=== PATIENT | female | born 1985 ===

== ENCOUNTER 2020-04-13 12:19 | Outpatient (REF) | payer MEDICAID, SELFPAY ==
--- NOTE | 2020-04-13 12:30 | XR_ITS ---
EXAMINATION: XR LUMBOSACRAL SPINE CLINICAL INFORMATION: Lower back pain with sciatica over one year. COMPARISON: May 24, 2018 TECHNIQUE: Three views of the lumbosacral spine. FINDINGS: There are 5 nonrib bearing lumbar vertebra. The bony texture and alignment is satisfactory. Disc spaces are maintained. No acute fracture, spondylolisthesis, or spondylolysis identified. Sacroiliac joints unremarkable. XR/XR lumbar spine 2-3V IMPRESSION: No significant lumbar spine bony abnormality appreciated.
== END 2020-04-13 12:20 | disposition home or self-care (01) ==
LOC: HO.XRAY 12:19
PROVIDERS: PCP Family Medicine; Visit Provider Nurse Practitioner Family
DX: M54.41 Lumbago with sciatica, right side (principal); M54.42 Lumbago with sciatica, left side
CPT/HCPCS: 72100

== ENCOUNTER 2021-01-31 01:27 | Emergency (ER) | payer MEDICAID, SELFPAY ==
[2021-01-31 01:35] VITALS: BP 149/85; PULSE 97; RESP 18; TEMP 36.4; O2SAT 98; BMI 41.0
--- NOTE | 2021-01-31 02:30 | ED.NECK ---
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 this afternoon and has not been associated with any fever, chills, sore throat, cough, and patient denies any numbness/tingling into bilateral upper extremities. Patient states that the right side is the worst that extends from the base of her neck across her shoulder. Related Data Previous Rx's Medication Instructions Recorded cyclobenzaprine 5 mg tablet 5 mg PO BEDTIME PRN #3 tab 01/31/21 Allergies Allergy/AdvReac Type Severity Reaction Status Date / Time albuterol [ALBUTEROL] Allergy Unknown DIFFICULTY Unverified 12/17/19 19:35 BREATHING Albuterol AdvReac Unknown Uncoded 01/26/19 00:00 Review of Systems Review of Systems: Pertinent positives and negatives as stated in HPI 10 point review of systems is otherwise negative. [facility] Past Medical History Source: nursing notes reviewed Social History Social History Advance Directives: No Physical Exam Vital Signs: Vital Signs: Last Vital Signs Temp 97.5 F 01/31/21 01:35 Pulse 97 01/31/21 01:35 Resp 18 01/31/21 01:35 BP 149/85 H 01/31/21 01:35 Pulse Ox 98 01/31/21 01:35 Body Mass Index 41.0 VITAL SIGNS: Reviewed. GENERAL: Well developed, well nourished, in no acute distress. HEAD: Normocephalic/atraumatic EYES: PERRLA, EOMI EARS: Ext canals without abnormality, TMs non-bulging and non-erythematous NOSE: Nares patent bilateral OROPHARYNX: no oral lesions noted, posterior pharynx clear and non-erythematous without noted tonsillar enlargement/erythema/exudates NECK: Supple, no adenopathy, no occipital lymph nodes appreciated, patient with more pain on extension than flexion at the neck and more pain with looking over the right shoulder than the left. LUNGS: Normal breath sounds. No adventitious sounds or accessory muscle use. SpO2<98> CARDIOVASCULAR: Regular rate and rhythm without noted murmurs, no JVD or lower extremity edema. ABDOMEN: Soft, non-tender, non-distended with bowel sounds. SKIN: Inspection of the skin reveals no rashes NEUROLOGIC: Alert and oriented x 4. Course Course Course Narrative: 35-year-old female with history and clinical presentation consistent with muscle spasm and patient will receive combination analgesics, anti spasmodic, as well as a lidocaine patch. Low clinical suspicion for retropharyngeal or peritonsillar abscess. And although positive contact with strep pharyngitis from her kids there are no findings or patient symptoms to suggest strep pharyngitis. On re-evaluation patient is feeling significantly better and will be discharged home in stable condition. Discharge Plan Discharge Clinical Impression: Muscle spasm Patient Disposition: Home, Self-Care Instructions: Muscle Spasm (ED) Additional Instructions: 1. Reanude todos los medicamentos caseros. 2. Tylenol 1000 mg, por v?a oral, cada 6 horas seg?n sea necesario para controlar el dolor. No exceda los 4000 mg en 24 horas. 3. Ibuprofeno 400 mg, por v?a oral con leche o alimentos, cada 6 horas seg?n sea necesario para controlar el dolor. Puede usha tommy medicamento con Tylenol para un mayor alivio de los s?ntomas. 4. Parche de lidoca?na, estos est?n disponibles sin receta y deben aplicarse en el ?diandra de m?xima sensibilidad elsie se indica en el empaque exterior. 5. Realice un seguimiento con mcqueen proveedor de atenci?n primaria en los pr?ximos 2-3 d?as para kathleen reevaluaci?n adicional para el manejo ambulatorio. Regrese a la tenzin de emergencias por un empeoramiento tere de los s?ntomas. Prescriptions: New cyclobenzaprine 5 mg tablet 5 mg PO BEDTIME PRN (Reason: muscle spasm) Qty: 3 RF: 0 Referrals: [place],[facility] [Primary Care Provider] - 2 days Print Language: Serbian
[2021-01-31] MEDS: Acetaminophen 325 MG TABLET 975 MG PO (02:47)
[2021-01-31] MEDS: Cyclobenzaprine HCl 5 MG TABLET PO (02:48)
[2021-01-31] MEDS: Ketorolac Tromethamine 15 MG/ML VIAL IM (02:49)
[2021-01-31] MEDS: Lidocaine 4 % Patch ADH..PATCH 1 PATCH TRANSDERMA (02:51)
[2021-01-31 03:58] VITALS: RESP 16
[2021-01-31 03:59] VITALS: BP 143/75; PULSE 83; RESP 16; TEMP 36.4; O2SAT 96
== END 2021-01-31 04:07 | disposition home or self-care (01) ==
PROVIDERS: Emergency Provider Student in an Organized Health Care Education/Training Program
DX: M54.2 Cervicalgia (principal); Z79.899 Other long term (current) drug therapy
CPT/HCPCS: 96372; 99284; J1885

== ENCOUNTER 2021-02-02 23:19 | Emergency (ER) | payer MEDICAID, SELFPAY ==
[2021-02-02 23:53] VITALS: BP 128/79; PULSE 98; RESP 18; TEMP 36.5; O2SAT 98; BMI 41.0
--- NOTE | 2021-02-03 00:48 | ED_ITS ---
HPI - Neck Pain/Injury General Chief Complaint: Neck Pain/Injury Stated Complaint: neck/back pain Time Seen by Provider: 02/03/21 00:47 Source: patient Mode of arrival: ambulatory History of Present Illness HPI Narrative: 35-year-old female with no significant past medical history presenting to the ED complaining of persistent bilateral neck/upper shoulder pain x a few days. Patient was recently seen and treated in our ED for similar symptoms, taking Flexeril with mild relief. Reports pain with ROM. Denies known injury/trauma or falls, heavy lifting, numbness, tingling, weakness, urinary incontinence/retention, fever/chills complaint: neck pain Related Data Previous Rx's Medication Instructions Recorded cyclobenzaprine 5 mg tablet 5 mg PO BEDTIME PRN #3 tab 01/31/21 acetaminophen 500 mg tablet 500 mg PO Q6H PRN #20 tab 02/03/21 (Tylenol Extra Strength) cyclobenzaprine 5 mg tablet 5 mg PO Q8H PRN 5 Days #14 tab 02/03/21 lidocaine 5 % topical patch 1 patch TOPICAL DAILY PRN #30 ea 02/03/21 (Lidoderm) MDD remove after 12 hours naproxen 500 mg tablet 500 mg PO BID PRN 10 Days #20 tab 02/03/21 Allergies Allergy/AdvReac Type Severity Reaction Status Date / Time albuterol [ALBUTEROL] Allergy Unknown DIFFICULTY Unverified 12/17/19 19:35 BREATHING Albuterol AdvReac Unknown Uncoded 01/26/19 00:00 Review of Systems Review of Systems: Constitutional:No Fever, No Chills ENT/Mouth: No Ear Pain, No Hoarseness, No sore throat, No Swallowing Difficulty Cardiovascular: No Chest Pain, No SOB Respiratory: No Cough Gastrointestinal: No Nausea, No Vomiting, No Abdominal pain Genitourinary: No Dysuria, No Urinary Frequency, No Hematuria, No Urinary Incontinence/retention Musculoskeletal: +joint pain, No Myalgias, No Joint Swelling Skin: No Skin Lesions, No rash Neuro: No Weakness, No Numbness, No Paresthesias Yes all other systems are reviewed and are negative Neurologic: Denies Sensory deficit (Neuro) PMFSH Past Medical History Attestation statement: The following information was validated with the patient. Social History Social History Advance Directives: No Advance Directives Information Provided: Yes Patient : No Physical Exam Vital Signs: Vital Signs: Last Vital Signs Temp 97.7 F 02/02/21 23:53 Pulse 98 02/02/21 23:53 Resp 18 02/02/21 23:53 BP 128/79 02/02/21 23:53 Pulse Ox 98 02/02/21 23:53 Body Mass Index 41.0 Const: General: cooperative, healthy appearing and no acute distress Orientation/consciousness: patient oriented x3 Limitations: no limitations HENMT: Head: Yes normal to inspection Ears: hearing grossly normal bilaterally General nose exam: Normal external nose present Face and sinus: Yes normal facial exam Eyes: General: appearance normal, both eyes and all related structures EOM: EOMs intact bilaterally Neck: Other: No midline cervical spinous tenderness or deformity. + bilateral trapezius muscle tenderness to palpation. No deformities/erythema/ecchymosis. +Mild swelling and palpable muscle spasming. Pain with ROM of neck Neck: Yes normal visual inspection, Yes no meningeal signs and Yes supple Resp: Effort & Inspection: normal respiratory effort and no respiratory distress Cardio: Rate: regular rate Heart sounds: S1 normal heart sound present and S2 normal heart sound present GI: Inspection: Yes normal to inspection Back/Spine/Pelvis: Other: No midline thoracic/lumbar spinous tenderness/step- off or deformity Skin: Rashes: no rashes Wounds: no wounds Neuro: Other: SILT. No saddle anesthesia, ambulating with steady gait. Strength intact throughout General: patient oriented x3, gait normal, tone normal, moves all extremities, no meningeal signs and no focal motor deficits Gait exam (Neuro): Normal gait present Motor exam (neuro): 5/5 motor strength present throughout Sensory Exam: No Sensory deficit (Neuro) Extrem: General: Yes normal to inspection MDM - Neck Pain/Injury MDM Narrative Medical decision making narrative: 35-year-old female with no significant past medical history presenting to the ED complaining of persistent bilateral neck/upper shoulder pain x a few days. On exam vital signs stable, NAD, nontoxic, no midline spinous tenderness throughout. Bilateral trapezius muscle spasming/tenderness. Concern for MSK pain/strain, pain very reproducible Low concern for cervical dissection. Plan: Toradol, symptomatic treatment, PCP follow-up Medical Records Attestation: I reviewed the patient's medical records. Lab Data Attestation: I reviewed the patient's lab results. Discharge Plan Discharge Clinical Impression: Trapezius muscle spasm Strain of neck muscle Qualifiers: Encounter type: subsequent encounter Qualified Code(s): S16.1XXD - Strain of muscle, fascia and tendon at neck level, subsequent encounter Patient Disposition: Home, Self-Care Instructions: Cervical Sprain (ED) Additional Instructions: Your pain is likely musculoskeletal Flexeril is a muscle relaxer, take at night as it makes you drowsy, do not drive, drink alcohol, or operate machinery while taking it Naproxen as an anti-inflammatory / pain medication, take with food Lidoderm patches are numbing patches, apply to painful area In addition take Tylenol at home. Apply heat. Consider getting a massage. If symptoms persist or worsen, pain becomes unbearable, you developed urinary retention or incontinence, or weakness return to the ED Es probable que mcqueen dolor sea musculoesquel?mariaelena Flexeril es un relajante muscular, t?ojeda por la noche ya que le produce somnolencia, no conduzca, no lloyd alcohol ni utilice maquinaria mientras lo haylee. Naproxeno elsie medicamento antiinflamatorio / analg?sico, usha con alimentos. Los parches de Lidoderm son parches que adormecen, se aplican al ?diandra dolorida Adem?s, tome Tylenol en casa. Aplicar calor. Considere la posibilidad de recibir un masaje. Si los s?ntomas persisten o empeoran, el dolor se vuelve insoportable, desarroll? retenci?n urinaria o incontinencia o debilidad, regrese al servicio de urgencias Prescriptions: New acetaminophen [Tylenol Extra Strength] 500 mg tablet 500 mg PO Q6H PRN (Reason: pain or fever) Qty: 20 RF: 0 lidocaine [Lidoderm] 5 % adhesive patch,medicated 1 patch topical DAILY MDD remove after 12 hours PRN (Reason: pain) Qty: 30 RF: 0 naproxen 500 mg tablet 500 mg PO BID PRN (Reason: pain) 10 Days Qty: 20 RF: 0 cyclobenzaprine 5 mg tablet 5 mg PO Q8H PRN (Reason: pain (scale score 7-10)) 5 Days Qty: 14 RF: 0 No Action cyclobenzaprine 5 mg tablet 5 mg PO BEDTIME PRN (Reason: muscle spasm) Qty: 3 RF: 0 Referrals: [facility] [Primary Care Provider] - 2 days Print Language: Citizen Of [place]
[2021-02-03] MEDS: Ketorolac Tromethamine 15 MG/ML VIAL 30 MG IM (01:01)
== END 2021-02-03 01:08 | disposition home or self-care (01) ==
PROVIDERS: Emergency Provider Internal Medicine
DX: S16.1XXD Strain of muscle, fascia and tendon at neck level, subsequent encounter (principal); X58.XXXD Exposure to other specified factors, subsequent encounter; M62.838 Other muscle spasm
CPT/HCPCS: 96372; 99284; J1885

== ENCOUNTER 2021-02-04 20:51 | Emergency (ER) | payer MEDICAID, SELFPAY ==
--- NOTE | ~2021-02-04 | CT_ITS ---
EXAMINATION: CT CERVICAL SPINE WITHOUT CONTRAST CLINICAL INFORMATION: Posterior neck pain and heard cracking . COMPARISON: No similar priors. TECHNIQUE: CT images of the cervical spine were obtained without intravenous contrast with axial, coronal and sagittal reformats. This CT examination was performed using dose optimization techniques as appropriate, variously including the following: *Automated exposure control *Adjustment of mA and/or kV according to patient size (this includes techniques or standardized protocols for targeted exams where dose is matched to indication/reason for exam; i.e. extremities or head) *Use of iterative reconstruction technique DLP: 588 mGy-cm FINDINGS: There is straightening of the normal cervical lordosis with otherwise anatomic alignment. No evidence of acute compression deformities or traumatic listhesis. The atlantooccipital and atlantoaxial articulations are maintained. There is mild multilevel cervical spondylosis manifested by disc space narrowing, anterior bony spurring and uncovertebral hypertrophy. These changes are more prominent at C5-C6 and C6-C7. No prevertebral soft tissue edema. Soft tissues of the neck are unremarkable. There is a 1.2 cm simple fluid attenuating nodule in the skin of the upper back, likely representing a sebaceous cyst. Correlation with physical examination could be obtained. Visualized lung apices are clear. The thyroid gland is within normal limits. CT/CT cervical spine wo con IMPRESSION: No acute cervical abnormalities. Mild cervical spondylosis. Likely sebaceous cyst in the superficial soft tissues of the back at the level of T1-T2. Correlate with physical examination.
[2021-02-04 21:04] VITALS: BP 158/90; PULSE 110; RESP 20; TEMP 36.4; O2SAT 98; BMI 41.0
[2021-02-04] MEDS: Ketorolac Tromethamine 15 MG/ML VIAL 30 MG IM (23:12)
--- NOTE | 2021-02-04 23:38 | ED_ITS ---
HPI - General Adult General Chief complaint: Neck Pain/Injury Stated complaint: Neck pain Source: patient Mode of arrival: ambulatory Limitations: no limitations History of Present Illness HPI narrative: 35 yold female presents to the ED for neck pain for about a week. Patient was seen here twice for posterior neck pain radiating down both arms and was informed was muscle spasm and discharged with pain medication. Patient states pain continued to have pain. Patient denies any recent trauma headache, nausea, vomiting, fever, chills, or photophobia. Related Data Previous Rx's Medication Instructions Recorded cyclobenzaprine 5 mg tablet 5 mg PO BEDTIME PRN #3 tab 01/31/21 acetaminophen 500 mg tablet 500 mg PO Q6H PRN #20 tab 02/03/21 (Tylenol Extra Strength) cyclobenzaprine 5 mg tablet 5 mg PO Q8H PRN 5 Days #14 tab 02/03/21 lidocaine 5 % topical patch 1 patch TOPICAL DAILY PRN #30 ea 02/03/21 (Lidoderm) MDD remove after 12 hours naproxen 500 mg tablet 500 mg PO BID PRN 10 Days #20 tab 02/03/21 Allergies Allergy/AdvReac Type Severity Reaction Status Date / Time albuterol [ALBUTEROL] Allergy Unknown DIFFICULTY Verified 02/04/21 21:11 BREATHING Albuterol AdvReac Unknown Difficulty Uncoded 02/04/21 21:11 Breathing Review of Systems Review of Systems: Yes all other systems are reviewed and are negative Constitutional: Constitutional: Reports as per HPI and Reports no additional constitutional complaints Eyes: Eyes: Reports as per HPI and Reports no additional eye complaints ENT: Reports system reviewed and no additional complaints, except as documented and Reports neck pain Cardiovascular: Cardiovascular: Reports as per HPI and Reports no additional cardiovascular complaints Respiratory: Respiratory: Reports as per HPI and Reports no additional respiratory complaints Gastrointestinal: Gastrointestinal: Reports as per HPI and Reports no additional gastrointestinal complaints Genitourinary: Genitourinary: Reports no additional female genitourinary complaints and Reports as per HPI Musculoskeletal: Musculoskeletal: Reports no additional musculoskeletal complaints, Reports as per HPI and Reports neck pain Neurologic: Reports system reviewed and no additional complaints, except as documented and Reports as per HPI Psychiatric: Psychiatric: Reports no additional psychiatric complaints and R eports as per HPI [facility] Social History Social History Advance Directives: No Advance Directives Information Provided: Yes Physical Exam Vital Signs: Vital Signs: Last Vital Signs Temp 97.6 F 02/04/21 21:04 Pulse 110 H 02/04/21 21:04 Resp 20 02/04/21 21:04 BP 158/90 H 02/04/21 21:04 Pulse Ox 98 02/04/21 21:04 Body Mass Index 41.0 Const: General: cooperative, healthy appearing, comfortable, no acute distress, well developed, alert, awake and Physically active Orientat ion/consciousness: patient oriented x3 HENMT: Head: Yes normal to inspection, Yes No palpable skull fracture present, Yes normocephalic, Yes atraumatic, No abrasion, No Acrocyanosis present, No Padron's sign, No contusion, No cranial bruits, No hematoma, No laceration, No occipital foramen tenderness, No palpable skull fracture, No raccoon eyes, No scalp lesion, No scalp tenderness, No Temporal artery tenderness present and No periorbital ecchymosis Eyes: General: appearance normal, both eyes and all related structures Neck: Neck: Yes normal visual inspection, Yes full ROM, Yes no lymphadenopathy, Yes no meningeal signs, Yes trachea midline, Yes supple, No anterior neck swelling and Yes tender (posterior cervical tenderness. ) Chest: Chest palpation & inspection: normal inspection of the chest and normal palpation of entire chest wall Resp: Effort & Inspection: normal respiratory effort and able to speak in complete sentences Auscultation: clear to auscultation bilaterally Cardio: Jugular venous distension: no JVD Heart sounds: S1 normal heart sound present and S2 normal heart sound present GI: Inspection: Yes normal to inspection and No abdominal wall ecchymosis Palpation (GI): Soft to palpation, not firm, nontender, no guarding and not rigid : General: No CVA tenderness and Yes no CVA tenderness Back/Spine/Pelvis: Back: no CVA tenderness, No CVA tenderness and No back tenderness Skin: General skin exam: no rashes or lesions noted and elasticity normal Neuro: General: patient oriented x3, gait normal, tone normal, no meningeal signs and CN's II-XI intact bilaterally Cranial nerves: Yes CN's II-XII intact bilaterally Extrem: General: Yes normal to inspection and Yes full ROM Psych: Appearance: grossly normal, well kempt and not disheveled Course Course Course Narrative: Will be sent for cervical spine CT scan. Reevaluation(s) Reevaluation #1: CT scan shows cervical arthritis with narrowing. Upper back shows sebaceous cyst. Physical exam negative for any signs of infected sebac eous cyst/abscess. Patient informed to follow-up with PCP for referral for physical therapy. Patient given number of surgeon for follow-up for submission cyst. Patient informed to continue taking pain meds she was prescribed from prior visit. Time: 01:05 Medical Decision Making [facility] Narrative Medical decision making narrative: cervical radiculpathy Discharge Plan Discharge Clinical Impression: Cervical radiculopathy, Sebaceous cyst Patient Disposition: Home, Self-Care Instructions: Cervical Radiculopathy (ED), Cyst (ED) Additional Instructions: Cummings tomograf?a computarizada cervical muestra artritis en C5, C6 y C7 con estrechamiento. Tambi?n tiene la base de cualquier parte superior de la espalda que necesitar? un seguimiento con cirug?a. Bejny un seguimiento con cummings proveedor de atenci?n primaria. Regrese al servicio de urgencias de inmediato si tiene entumecimiento / hormigueo en las extremidades superiores, dolor de rosmery, mareos, fotofobia, fiebre, escalofr?os, dolor de rosmery, n?useas, v?mitos, enrojecimiento, secreci?n de pus de los quistes, mal olor o cualquier otro s?ntoma relacionado. Contin?e tomando los medicamentos que le recet? el proveedor anterior. Prescriptions: No Action cyclobenzaprine 5 mg tablet 5 mg PO BEDTIME PRN (Reason: muscle spasm) Qty: 3 RF: 0 acetaminophen [Tylenol Extra Strength] 500 mg tablet 500 mg PO Q6H PRN (Reason: pain or fever) Qty: 20 RF: 0 lidocaine [Lidoderm] 5 % adhesive patch,medicated 1 patch topical DAILY MDD remove after 12 hours PRN (Reason: pain) Qty: 30 RF: 0 naproxen 500 mg tablet 500 mg PO BID PRN (Reason: pain) 10 Days Qty: 20 RF: 0 cyclobenzaprine 5 mg tablet 5 mg PO Q8H PRN (Reason: pain (scale score 7-10)) 5 Days Qty: 14 RF: 0 Referrals: Tristin Palmer MD [Physician] - 2 days (Sebaceous cyst on back) Stand Alone Forms: Work/School Release Discharge Date/Time: 02/05/21 00:13 Print Language: Italian
== END 2021-02-05 00:13 | disposition home or self-care (01) ==
PROVIDERS: Emergency Provider Internal Medicine
DX: M54.12 Radiculopathy, cervical region (principal); L72.3 Sebaceous cyst; M54.2 Cervicalgia; Z79.899 Other long term (current) drug therapy
CPT/HCPCS: 72125; 96372; 99284; J1885

== ENCOUNTER 2021-03-10 23:17 | Emergency (ER) | payer MEDICAID, SELFPAY ==
[2021-03-10 23:41] VITALS: BP 143/81; PULSE 121; RESP 20; TEMP 36.9; O2SAT 96; BMI 40.3
--- NOTE | 2021-03-11 02:10 | ED.GENADULT ---
HPI - General Adult General Chief complaint: Ear Problems Stated complaint: throat/dental pain Time Seen by Provider: 03/11/21 02:03 Source: patient Mode of arrival: ambulatory History of Present Illness HPI narrative: 35-year-old female with history of asthma and diabetes presents with having been diagnosed with COVID-19 over 3 weeks ago and states that approximately at that time she was told that her sore throat was viral and she was not given antibiotics. She now states that she has had worsening throat pain without fevers or chills but states that she is having significant pain on swallowing that radiates into the right side of her throat and up into her right ear. Patient states she has had tubal ligation. Related Data Previous Rx's Medication Instructions Recorded cyclobenzaprine 5 mg tablet 5 mg PO BEDTIME PRN #3 tab 01/31/21 acetaminophen 500 mg tablet 500 mg PO Q6H PRN #20 tab 02/03/21 (Tylenol Extra Strength) cyclobenzaprine 5 mg tablet 5 mg PO Q8H PRN 5 Days #14 tab 02/03/21 lidocaine 5 % topical patch 1 patch TOPICAL DAILY PRN #30 ea 02/03/21 (Lidoderm) MDD remove after 12 hours naproxen 500 mg tablet 500 mg PO BID PRN 10 Days #20 tab 02/03/21 amoxicillin 875 mg-potassium 1 tab PO Q12H 10 Days #20 tab 03/11/21 clavulanate 125 mg tablet (Augmentin) Allergies Allergy/AdvReac Type Severity Reaction Status Date / Time albuterol [ALBUTEROL] Allergy Unknown DIFFICULTY Verified 02/04/21 21:11 BREATHING Albuterol AdvReac Unknown Difficulty Uncoded 02/04/21 21:11 Breathing Review of Systems Review of Systems: Pertinent positives and negatives as stated in HPI 10 point review of systems is otherwise negative. PMFSH Past Medical History Source: nursing notes reviewed Social History Social History Alcohol intake: unknown Patient Tobacco Use Status: Tobacco use Unknown Use of substances other than those prescribed or required for medical reasons: Unknown Advance Directives: No Advance Directives Information Provided: Yes Physical Exam Vital Signs: Vital Signs: Last Vital Signs Temp 98.7 F 03/11/21 02:41 Pulse 104 H 03/11/21 02:41 Resp 16 03/11/21 02:41 BP 124/69 03/11/21 02:41 Pulse Ox 98 03/11/21 02:41 BMI result Body Mass Index 40.3 VITAL SIGNS: Reviewed. GENERAL: Well developed, well nourished, in no acute distress. HEAD: Normocephalic/atraumatic, EYES: PERRLA, EOMI EARS: Ext canals without abnormality, TMs bulging but non-erythematous NOSE: Nares patent bilateral OROPHARYNX: no oral lesions noted, posterior pharynx erythema with noted tonsillar enlargement/erythema/exudates NECK: Supple, + adenopathy LUNGS: Normal breath sounds, no stridor/wheezing/rhonchi. SpO2<96> CARDIOVASCULAR: Regular rate and rhythm without noted murmurs, no JVD or lower extremity edema. ABDOMEN: Soft, non-tender, non-distended with bowel sounds. NEUROLOGIC: Alert and oriented x 4. Course Course Course Narrative: 35-year-old female with history and clinical presentation suspicious for abscess or possible strep pharyngitis although in the absence of headache and high fevers somewhat less likely. On review of all investigations patient has strep pharyngitis and COVID-19 testing is negative. Patient received antibiotics as well as IV fluids and combination analgesics while here in the emergency room and was otherwise discharged home in stable condition with remaining course of antibiotics. Although she was noted to be hyperglycemic she was not demonstrating any symptoms and not in DKA. Medical Decision Making Lab Data Result diagrams: 03/11/21 02:23 03/11/21 02:23 Labs: Lab Results 03/11/21 03/11/21 03/11/21 Range/Units 02:23 02:23 02:23 WBC 11.9 H (4.8-10.8) X10*3/uL RBC 5.13 (4.20-5.50) X10*6/uL Hgb 13.4 (12.0-16.0) g/dl Hct 40.9 (37.0-47.0) % MCV 79.7 L (80.0-98.0) fL MCH 26.1 L (27.0-33.0) pg MCHC 32.8 (31.0-35.0) g/dl RDW 14.1 (11.0-16.0) % Plt Count 192 (160-400) X10*3/uL MPV 11.6 (9.4-12.3) fL Immature Gran % (Auto) 0.3 (0.0-0.4) % Neut % (Auto) 76.2 H (45-73) % Lymph % (Auto) 16.3 L (20-40) % [place] % (Auto) 5.3 (2-11) % Eos % (Auto) 1.4 (0-4) % Baso % (Auto) 0.5 (0-2) % Lymph # (Auto) 1.9 (1.2-4.9) X10*3/uL [place] # (Auto) 0.6 (0.1-1.2) X10*3/uL Eos # (Auto) 0.2 (0.0-0.4) X10*3/uL Baso # (Auto) 0.1 (0.0-0.2) X10*3/uL Abs Immat Gran (auto) 0.03 (0.00-0.03) X10*3/uL Absolute Neuts (auto) 9.1 H (2.0-8.3) x10*3/uL Absolute Nucleated RBC 0.000 (0.0-0.012) X10*3/uL Nucleated RBC % (auto) 0.0 (0.0-0.2) /100WBC Sodium 132 L (135-145) mmol/L Potassium 4.1 (3.3-5.1) mmol/L Chloride 99 (96-108) mmol/L Carbon Dioxide 24 (22-29) mmol/L Anion Gap 13 (12-20) BUN 11 (9-16) mg/dL Creatinine 0.82 (0.5-1.4) mg/dL Estim Creat Clear Calc 122.3 Estimated GFR > 60 Random Glucose 413 H* (60-115) mg/dL Lactic Acid 1.5 (0.5-2.0) mmol/L Calcium 9.5 (8.4-10.2) mg/dL Total Bilirubin 0.3 (0.0-1.0) mg/dL AST 8 (5-31) U/L ALT 14 (0-31) U/L Alkaline Phosphatase 89 (39-117) U/L Total Protein 7.6 (6.5-8.0) g/dL Albumin 4.1 (3.5-5.0) g/dL Acetone, Qual Negative (Negative) COVID-19 (CHRISTIANO) (Negative) COVID-19 Clin Com S. pyogenes GrpA FRANKIE (Negative) 03/11/21 03/11/21 Range/Units 02:24 02:25 WBC (4.8-10.8) X10*3/uL RBC (4.20-5.50) X10*6/uL Hgb (12.0-16.0) g/dl Hct (37.0-47.0) % MCV (80.0-98.0) fL MCH (27.0-33.0) pg MCHC (31.0-35.0) g/dl RDW (11.0-16.0) % Plt Count (160-400) X10*3/uL MPV (9.4-12.3) fL Immature Gran % (Auto) (0.0-0.4) % Neut % (Auto) (45-73) % Lymph % (Auto) (20-40) % [place] % (Auto) (2-11) % Eos % (Auto) (0-4) % Baso % (Auto) (0-2) % Lymph # (Auto) (1.2-4.9) X10*3/uL [place] # (Auto) (0.1-1.2) X10*3/uL Eos # (Auto) (0.0-0.4) X10*3/uL Baso # (Auto) (0.0-0.2) X10*3/uL Abs Immat Gran (auto) (0.00-0.03) X10*3/uL Absolute Neuts (auto) (2.0-8.3) x10*3/uL Absolute Nucleated RBC (0.0-0.012) X10*3/uL Nucleated RBC % (auto) (0.0-0.2) /100WBC Sodium (135-145) mmol/L Potassium (3.3-5.1) mmol/L Chloride (96-108) mmol/L Carbon Dioxide (22-29) mmol/L Anion Gap (12-20) BUN (9-16) mg/dL Creatinine (0.5-1.4) mg/dL Estim Creat Clear Calc Estimated GFR Random Glucose (60-115) mg/dL Lactic Acid (0.5-2.0) mmol/L Calcium (8.4-10.2) mg/dL Total Bilirubin (0.0-1.0) mg/dL AST (5-31) U/L ALT (0-31) U/L Alkaline Phosphatase (39-117) U/L Total Protein (6.5-8.0) g/dL Albumin (3.5-5.0) g/dL Acetone, Qual (Negative) COVID-19 (CHRISTIANO) Negative (Negative) COVID-19 Clin Com See Note S. pyogenes GrpA FRANKIE Positive A (Negative) Discharge Plan Discharge Clinical Impression: Pharyngitis, streptococcal, Hyperglycemia Patient Disposition: Home, Self-Care Instructions: Strep Throat (ED), Diabetic Hyperglycemia (ED) Additional Instructions: 1. Reanude todos los medicamentos caseros seg?n lo prescrito. 2. Benjy un seguimiento con mcqueen proveedor de atenci?n primaria el lunes. 3. Complete todo el ciclo de antibi?ticos que le hayan recetado. Regrese a la tenzin de emergencias si los s?ntomas empeoran. Prescriptions: New amoxicillin-pot clavulanate [Augmentin] 875-125 mg tablet 1 tab PO Q12H 10 Days Qty: 20 RF: 0 No Action cyclobenzaprine 5 mg tablet 5 mg PO BEDTIME PRN (Reason: muscle spasm) Qty: 3 RF: 0 acetaminophen [Tylenol Extra Strength] 500 mg tablet 500 mg PO Q6H PRN (Reason: pain or fever) Qty: 20 RF: 0 lidocaine [Lidoderm] 5 % adhesive patch,medicated 1 patch topical DAILY MDD remove after 12 hours PRN (Reason: pain) Qty: 30 RF: 0 naproxen 500 mg tablet 500 mg PO BID PRN (Reason: pain) 10 Days Qty: 20 RF: 0 cyclobenzaprine 5 mg tablet 5 mg PO Q8H PRN (Reason: pain (scale score 7-10)) 5 Days Qty: 14 RF: 0 Referrals: [facility] [Primary Care Provider] - 2 days Interventions: ED Discharge Assessment Last Done: 03/11/21 03:45 Print Language: Colombian
[2021-03-11 02:37] LABS: MANUAL DIFF FLAG NO
[2021-03-11 02:38] LABS: Basophils Absolute Auto 0.1 X10*3/uL (0.0-0.2); Basophils Percent Auto 0.5 % (0-2); Eosinophils Absolute Auto 0.2 X10*3/uL (0.0-0.4); Eosinophils Percent Auto 1.4 % (0-4); Hematocrit 40.9 % (37.0-47.0); Hemoglobin 13.4 g/dl (12.0-16.0); Imm Gran Abs Auto 0.03 X10*3/uL (0.00-0.03); Imm Gran Pct Auto 0.3 % (0.0-0.4); Lymphocytes Absolute Auto 1.9 X10*3/uL (1.2-4.9); Lymphocytes Percent Auto 16.3 % (20-40); Mean Corpuscular HGB Conc 32.8 g/dl (31.0-35.0); Mean Corpuscular Hemoglobin 26.1 pg (27.0-33.0); Mean Corpuscular Volume 79.7 fL (80.0-98.0); Mean Platelet Volume 11.6 fL (9.4-12.3); Monocytes Absolute Auto 0.6 X10*3/uL (0.1-1.2); Monocytes Percent Auto 5.3 % (2-11); Neutrophils Absolute Auto 9.1 x10*3/uL (2.0-8.3); Neutrophils Percent Auto 76.2 % (45-73); Platelet Count 192 X10*3/uL (160-400); Red Blood Count 5.13 X10*6/uL (4.20-5.50); Red Cell Distribution Width 14.1 % (11.0-16.0); White Blood Count 11.9 X10*3/uL (4.8-10.8)
[2021-03-11 02:41] VITALS: BP 124/69; PULSE 104; RESP 16; TEMP 37.1; O2SAT 98
[2021-03-11 02:42] LABS: Strep A Nucleic Acid Positive (Negative)
[2021-03-11 02:48] LABS: Lactic Acid 1.5 mmol/L (0.5-2.0)
[2021-03-11 02:54] LABS: COVID-19 Test Negative (Negative); IDNOW Serial# 9DD0AD1C
[2021-03-11 02:59] LABS: Alanine Aminotransferase 14 U/L (0-31); Albumin Level 4.1 g/dL (3.5-5.0); Alkaline Phosphatase 89 U/L (39-117); Anion Gap 13 (12-20); Aspartate Amino Transferase 8 U/L (5-31); Bilirubin Total 0.3 mg/dL (0.0-1.0); Blood Urea Nitrogen 11 mg/dL (9-16); Calcium 9.5 mg/dL (8.4-10.2); Carbon Dioxide 24 mmol/L (22-29); Chloride 99 mmol/L (96-108); Creatinine Clr Calc Pharmacy 122.3; Estimated Glomerular Filt Rate > 60; Glucose Random 413 mg/dL (60-115); Potassium 4.1 mmol/L (3.3-5.1); Sodium 132 mmol/L (135-145); Total Protein 7.6 g/dL (6.5-8.0)
[2021-03-11 03:06] LABS: Acetone, serum QL Negative (Negative)
[2021-03-11] MEDS: Acetaminophen 325 MG TABLET 975 MG PO (03:16)
[2021-03-11] MEDS: 0.9 % Sodium Chloride 1,000 ML 999 ML IV (03:16)
[2021-03-11] MEDS: Piperacillin Sodium/Tazobactam 3.375 GM in 0.9 % Sodium Chloride 50 ML IV (03:17)
[2021-03-11] MEDS: Ketorolac Tromethamine 30 MG/ML VIAL 15 MG IVPUSH (04:16)
[2021-03-11 04:28] LABS: Glucose, Whole Blood 349 mg/dL (60-115)
== END 2021-03-11 05:01 | disposition home or self-care (01) ==
PROVIDERS: Emergency Provider Student in an Organized Health Care Education/Training Program
DX: J02.0 Streptococcal pharyngitis (principal); E11.65 Type 2 diabetes mellitus with hyperglycemia; Z20.822 Contact with and (suspected) exposure to COVID-19; Z79.899 Other long term (current) drug therapy
CPT/HCPCS: 36415; 80053; 82009; 82947; 83605; 85025; 87040; 87635; 87651; 96361; 96374; 96375; 99284; J1885; J2543

== ENCOUNTER 2021-08-03 16:49 | Emergency (ER) | payer MEDICAID, SELFPAY ==
--- NOTE | ~2021-08-03 | XR_ITS ---
EXAMINATION: XR CHEST CLINICAL INFORMATION: Cough. COMPARISON: Chest x-ray 04/20/2018 TECHNIQUE: Frontal portable view of the chest was obtained. 6:26 PM FINDINGS: No significant abnormality is noted involving the heart, lungs, mediastinum, bony thorax or soft tissues. XR/XR chest 1V IMPRESSION: Unremarkable examination.
--- NOTE | 2021-08-03 17:08 | ED.NAVMDI ---
HPI - Nausea/Vomiting/Diarrhea General Chief complaint: General Medical Stated complaint: vomiting, diarrhea, headache Source: patient Mode of arrival: ambulatory Limitations: no limitations History of Present Illness HPI Narrative: 35-year-old female presents with 2 days of chest congestion, dry cough, vomiting and diarrhea. Does not report any fevers or chills, denies palpitations pain on inspiration, or any other concerning symptoms. MD elicited complaint: nausea, vomiting and diarrhea Onset (ago): day(s) (2) Description of vomiting: watery Description of diarrhea: watery Associated nausea: Yes Associated abdominal pain: No Severity: moderate Exacerbating factors: none Relieving factors: none Associated symptoms: cough and nausea/vomiting Related Data Previous Rx's Medication Instructions Recorded cyclobenzaprine 5 mg tablet 5 mg PO BEDTIME PRN #3 tab 01/31/21 acetaminophen 500 mg tablet 500 mg PO Q6H PRN #20 tab 02/03/21 (Tylenol Extra Strength) cyclobenzaprine 5 mg tablet 5 mg PO Q8H PRN 5 Days #14 tab 02/03/21 lidocaine 5 % topical patch 1 patch TOPICAL DAILY PRN #30 ea 02/03/21 (Lidoderm) MDD remove after 12 hours naproxen 500 mg tablet 500 mg PO BID PRN 10 Days #20 tab 02/03/21 amoxicillin 875 mg-potassium 1 tab PO Q12H 10 Days #20 tab 03/11/21 clavulanate 125 mg tablet (Augmentin) Allergies Allergy/AdvReac Type Severity Reaction Status Date / Time albuterol [ALBUTEROL] Allergy Unknown DIFFICULTY Verified 02/04/21 21:11 BREATHING Albuterol AdvReac Unknown Difficulty Uncoded 02/04/21 21:11 Breathing Review of Systems Review of Systems: Constitutional: No Weight loss, No Fever, No Chills, No Night Sweats, No Fatigue, No Malaise ENT/Mouth: No Hearing loss, No Ear Pain, No Nasal Congestion, No Sinus Pain, No Hoarseness, No sore throat, No Rhinorrhea, No Swallowing Difficulty Eyes: No Eye Pain, No Swelling, No Redness, No Foreign Body, No Discharge, No Vision Changes Cardiovascular: No Chest Pain, No SOB, No Dyspnea on Exertion, No Orthopnea, No Edema, No Palpitations Respiratory: Positive Cough, No Sputum, No Wheezing, No Smoke Exposure, No Dyspnea Gastrointestinal: Positive Nausea, Positive Vomiting, positive Diarrhea, no abdominal Pain, No Hematochezia, No Melena Genitourinary: no irregular bleeding, No Dysuria, No Urinary Frequency, No Hematuria, No Urinary Incontinence, No Urgency, No Flank Pain, No Urinary Flow Changes, No Hesitancy Musculoskeletal: No joint pain, No Myalgias, No Joint Swelling Skin: No Skin Lesions, No rash Neuro: No Weakness, No Numbness, No Paresthesias, No Loss of Consciousness, No Dizziness, No Headache Psych: No Anxiety/Panic, No Depression, No SI/HI/AH/VH, No Social Issues Heme/Lymph: No Bruising, No Bleeding,No Lymphadenopathy Endocrine: No Polyuria, No Polydipsia, No Temperature Intolerance Yes all other systems are reviewed and are negative Gastrointestinal: Gastrointestinal: Reports nausea PMFSH Past Medical History Attestation statement: The following information was validated with the patient. Source: old records reviewed Social History Social History Alcohol intake: unknown Patient Tobacco Use Status: Tobacco use Unknown Advance Directives: No Advance Directives Information Provided: No Patient : No Physical Exam Vital Signs: Vital Signs: Last Vital Signs Temp 98.3 F 08/03/21 17:19 Pulse 110 H 08/03/21 17:19 Resp 18 08/03/21 17:19 BP 134/84 08/03/21 17:19 Pulse Ox 98 08/03/21 17:19 BMI result Body Mass Index 42.7 Appearance: Alert. Oriented X3. No acute distress. Eyes: Pupils equal, round and reactive to light. EOMI. Sclera nonicteric. ENT: Pharynx normal. Moist mucous membranes. Neck: Normal inspection. Neck supple. CVS: Tachycardic heart rate and rhythm. Pulses normal. Respiratory: No respiratory distress. Breath sounds normal. Abdomen: Soft and nontender. No rigidity or rebound noted. Skin: Skin warm and dry. Normal skin color. Normal skin turgor. Extremities: No lower extremity edema. Gait well-balanced well coordinated. Neuro: No motor deficit. No sensory deficit. Cranial nerves 2-12 intact. Course Course Course Narrative: 35-year-old female presents with upper respiratory and gastrointestinal viral syndrome. Has had 2 days of chest congestion, dry cough nausea and vomiting. No abdominal pain, no chest pain or pain on inspiration. Patient is tachycardic, afebrile, appears nontoxic. Patient does smoke cigarettes. Denies illicit drug use. Currently menstruating. Will order labs and urinalysis. 19:25 labs unremarkable. Chest x-ray is negative. COVID influenza negative. Urinalysis is negative. Most likely to be viral syndrome. Plan of care is to discharge home with supportive measures.Patient verbalized understanding of and agrees to plan of care to discharge home. Verbalized understanding of signs and symptoms indicating need for emergent intervention MDM - Nausea/Vomiting/Diarrhea Differential Diagnosis Differential diagnosis: Likely gastroenteritis and dehydration Medical Records Attestation: I reviewed the patient's medical records. Lab Data Attestation: I reviewed the patient's lab results. Result diagrams: 08/03/21 17:38 08/03/21 17:38 Labs: Lab Results 08/03/21 08/03/21 08/03/21 Range/Units 17:38 17:38 17:40 WBC 7.9 (4.8-10.8) X10*3/uL RBC 5.05 (4.20-5.50) X10*6/uL Hgb 12.6 (12.0-16.0) g/dl Hct 39.5 (37.0-47.0) % MCV 78.2 L (80.0-98.0) fL MCH 25.0 L (27.0-33.0) pg MCHC 31.9 (31.0-35.0) g/dl RDW 13.4 (11.0-16.0) % Plt Count 224 (160-400) X10*3/uL MPV 12.1 (9.4-12.3) fL Immature Gran % (Auto) 0.3 (0.0-0.4) % Neut % (Auto) 71.5 (45-73) % Lymph % (Auto) 21.0 (20-40) % [place] % (Auto) 4.7 (2-11) % Eos % (Auto) 1.9 (0-4) % Baso % (Auto) 0.6 (0-2) % Lymph # (Auto) 1.7 (1.2-4.9) X10*3/uL [place] # (Auto) 0.4 (0.1-1.2) X10*3/uL Eos # (Auto) 0.2 (0.0-0.4) X10*3/uL Baso # (Auto) 0.1 (0.0-0.2) X10*3/uL Abs Immat Gran (auto) 0.02 (0.00-0.03) X10*3/uL Absolute Neuts (auto) 5.6 (2.0-8.3) x10*3/uL Absolute Nucleated RBC 0.000 (0.0-0.012) X10*3/uL Nucleated RBC % (auto) 0.0 (0.0-0.2) /100WBC Sodium 134 L (135-145) mmol/L Potassium 3.9 (3.3-5.1) mmol/L Chloride 101 (96-108) mmol/L Carbon Dioxide 22 (22-29) mmol/L Anion Gap 15 (12-20) BUN 13 (9-16) mg/dL Creatinine 0.84 (0.5-1.4) mg/dL Estim Creat Clear Calc 123.5 Estimated GFR > 60 Random Glucose 338 H (60-115) mg/dL Calcium 9.3 (8.4-10.2) mg/dL Urine Color Urine Appearance Urine pH (5.0-8.0) Ur Specific [place] (1.005-1.025) Urine Protein (NEG-TRACE) MG/DL Urine Glucose (UA) (NEG) MG/DL Urine Ketones (NEG) MG/DL Urine Blood (NEG) Urine Nitrite (NEG) Ur Leukocyte Esterase (NEG) Urine RBC (0) /HPF Urine WBC (0-4) /HPF Ur Squamous Epith Cells /LPF Urine Bacteria /LPF Urine Yeast /HPF COVID-19 (CHRISTIANO) (Negative) COVID-19 Clin Com Influenza Type A (FRANKIE) Negative (Negative) Influenza Type B (FRANKIE) Negative (Negative) Influenza A & B Note See Note 08/03/21 08/03/21 Range/Units 17:40 18:40 WBC (4.8-10.8) X10*3/uL RBC (4.20-5.50) X10*6/uL Hgb (12.0-16.0) g/dl Hct (37.0-47.0) % MCV (80.0-98.0) fL MCH (27.0-33.0) pg MCHC (31.0-35.0) g/dl RDW (11.0-16.0) % Plt Count (160-400) X10*3/uL MPV (9.4-12.3) fL Immature Gran % (Auto) (0.0-0.4) % Neut % (Auto) (45-73) % Lymph % (Auto) (20-40) % [place] % (Auto) (2-11) % Eos % (Auto) (0-4) % Baso % (Auto) (0-2) % Lymph # (Auto) (1.2-4.9) X10*3/uL [place] # (Auto) (0.1-1.2) X10*3/uL Eos # (Auto) (0.0-0.4) X10*3/uL Baso # (Auto) (0.0-0.2) X10*3/uL Abs Immat Gran (auto) (0.00-0.03) X10*3/uL Absolute Neuts (auto) (2.0-8.3) x10*3/uL Absolute Nucleated RBC (0.0-0.012) X10*3/uL Nucleated RBC % (auto) (0.0-0.2) /100WBC Sodium (135-145) mmol/L Potassium (3.3-5.1) mmol/L Chloride (96-108) mmol/L Carbon Dioxide (22-29) mmol/L Anion Gap (12-20) BUN (9-16) mg/dL Creatinine (0.5-1.4) mg/dL Estim Creat Clear Calc Estimated GFR Random Glucose (60-115) mg/dL Calcium (8.4-10.2) mg/dL Urine Color YELLOW Urine Appearance CLEAR Urine pH 5.5 (5.0-8.0) Ur Specific [place] >= 1.030 H (1.005-1.025) Urine Protein NEG (NEG-TRACE) MG/DL Urine Glucose (UA) >=1000 H (NEG) MG/DL Urine Ketones NEG (NEG) MG/DL Urine Blood 3+ H (NEG) Urine Nitrite NEG (NEG) Ur Leukocyte Esterase NEG (NEG) Urine RBC 1-4 (0) /HPF Urine WBC 0 (0-4) /HPF Ur Squamous Epith Cells TRACE /LPF Urine Bacteria TRACE /LPF Urine Yeast TRACE /HPF COVID-19 (CHRISTIANO) Negative (Negative) COVID-19 Clin Com See Note Influenza Type A (FRANKIE) (Negative) Influenza Type B (FRANKIE) (Negative) Influenza A & B Note Imaging Data Chest x-ray: Attestation: I personally reviewed and interpreted this imaging study as follows: Radiologist's impression: EXAMINATION: XR CHEST CLINICAL INFORMATION: Cough. COMPARISON: Chest x-ray 04/20/2018 TECHNIQUE: Frontal portable view of the chest was obtained. 6:26 PM FINDINGS: No significant abnormality is noted involving the heart, lungs, mediastinum, bony thorax or soft tissues. XR/XR chest 1V IMPRESSION: Unremarkable examination. ECG Data Attestation: I personally reviewed and interpreted this ECG as follows: ECG interpretation date: 08/03/21 ECG interpretation time: 17:48 Prior ECG tracings: not available for review Interpretation: Vent. rate 100 BPM NV interval 168 ms QRS duration 86 ms QT/QTc 334/430 ms P-R-T axes 50 14 17 Normal sinus rhythm Normal ECG No previous ECGs available Discharge Plan Discharge Clinical Impression: Acute viral syndrome Patient Disposition: Home, Self-Care Instructions: Acute Nausea and Vomiting (ED), Viral Syndrome (ED) Additional Instructions: Se evalu? por n?useas, v?mitos y diarrea con congesti?n tor?cica y tos. Las pruebas de influenza y COVID son negativas. Los valores de laboratorio son normales. La radiograf?a de t?rax es negativa. El an?lisis de orina es negativo. Lo m?s probable es que se trate de un s?ndrome viral de gastroenterolog?a. O virus estomacal. Por favor, lloyd muchos l?quidos. [place]. Use Tylenol o Motrin seg?n sea necesario para controlar el dolor. Sadi por elegir tommy departamento de emergencias para mcqueen evaluaci?n. Por favor, jona un seguimiento con el m?dico de atenci?n primaria seg?n sea necesario. Regrese al departamento de emergencias por cualquier s?ntoma nuevo, preocupante o que empeore. You evaluated for nausea, vomiting, and diarrhea with chest congestion and cough. Influenza and COVID test are negative. Lab values are unremarkable. Chest x-ray is negative. Urinalysis is negative. This is most likely a gastroenterology viral syndrome. Or stomach bug. Please drink plenty of fluids. Rest. Use Tylenol or Motrin as needed for pain management. Thank you for choosing this emergency department for evaluation. Please follow-up with primary care physician as needed. Return to the emergency department for any new, concerning, or worsening symptoms. Prescriptions: No Action cyclobenzaprine 5 mg tablet 5 mg PO BEDTIME PRN (Reason: muscle spasm) Qty: 3 0RF acetaminophen [Tylenol Extra Strength] 500 mg tablet 500 mg PO Q6H PRN (Reason: pain or fever) Qty: 20 0RF lidocaine [Lidoderm] 5 % adhesive patch,medicated 1 patch topical DAILY MDD remove after 12 hours PRN (Reason: pain) Qty: 30 0RF Rx Instructions: leave on most painful area for up to 12 hrs naproxen 500 mg tablet 500 mg PO BID PRN (Reason: pain) 10 Days Qty: 20 0RF cyclobenzaprine 5 mg tablet 5 mg PO Q8H PRN (Reason: pain (scale score 7-10)) 5 Days Qty: 14 0RF amoxicillin-pot clavulanate [Augmentin] 875-125 mg tablet 1 tab PO Q12H 10 Days Qty: 20 0RF Stand Alone Forms: Work/School Release Interventions: ED Discharge Assessment Last Done: 08/03/21 19:44 Discharge Date/Time: 08/03/21 19:45
[2021-08-03 17:10] VITALS: BP 136/97; PULSE 117; RESP 16; TEMP 36.9; O2SAT 97
--- NOTE | 2021-08-03 17:16 | ECG_ITS ---
Test Reason : ABDOMINAL PAIN/ CHEST PAIN Blood Pressure : / mmHG Vent. Rate : 100 BPM Atrial Rate : 100 BPM P-R Int : 168 ms QRS Dur : 086 ms QT Int : 334 ms P-R-T Axes : 050 014 017 degrees QTc Int : 430 ms Normal sinus rhythm Normal ECG No previous ECGs available Referred By: Kamini Hoffman Electronically Signed By:KATHY CONN MD
[2021-08-03 17:19] VITALS: BP 134/84; PULSE 110; RESP 18; TEMP 36.8; O2SAT 98; BMI 42.7
[2021-08-03] MEDS: ondansetron HCL 4 MG/2 ML VIAL IVPUSH (17:42)
[2021-08-03] MEDS: 0.9 % Sodium Chloride 1,000 ML 999 ML IVCONT (17:43)
[2021-08-03 17:44] LABS: MANUAL DIFF FLAG NO
[2021-08-03 17:47] LABS: Basophils Absolute Auto 0.1 X10*3/uL (0.0-0.2); Basophils Percent Auto 0.6 % (0-2); Eosinophils Absolute Auto 0.2 X10*3/uL (0.0-0.4); Eosinophils Percent Auto 1.9 % (0-4); Hematocrit 39.5 % (37.0-47.0); Hemoglobin 12.6 g/dl (12.0-16.0); Imm Gran Abs Auto 0.02 X10*3/uL (0.00-0.03); Imm Gran Pct Auto 0.3 % (0.0-0.4); Lymphocytes Absolute Auto 1.7 X10*3/uL (1.2-4.9); Mean Corpuscular HGB Conc 31.9 g/dl (31.0-35.0); Mean Corpuscular Volume 78.2 fL (80.0-98.0); Mean Platelet Volume 12.1 fL (9.4-12.3); Monocytes Absolute Auto 0.4 X10*3/uL (0.1-1.2); Monocytes Percent Auto 4.7 % (2-11); Neutrophils Absolute Auto 5.6 x10*3/uL (2.0-8.3); Neutrophils Percent Auto 71.5 % (45-73); Platelet Count 224 X10*3/uL (160-400); Red Blood Count 5.05 X10*6/uL (4.20-5.50); Red Cell Distribution Width 13.4 % (11.0-16.0); White Blood Count 7.9 X10*3/uL (4.8-10.8)
[2021-08-03 18:03] LABS: Anion Gap 15 (12-20); Blood Urea Nitrogen 13 mg/dL (9-16); Calcium 9.3 mg/dL (8.4-10.2); Carbon Dioxide 22 mmol/L (22-29); Chloride 101 mmol/L (96-108); Creatinine Clr Calc Pharmacy 123.5; Estimated Glomerular Filt Rate > 60; Glucose Random 338 mg/dL (60-115); Potassium 3.9 mmol/L (3.3-5.1); Sodium 134 mmol/L (135-145)
[2021-08-03 18:16] LABS: COVID-19 Test Negative (Negative); IDNOW Serial# 16C4AD1C; Influenza A Negative (Negative); Influenza B2 Negative (Negative)
[2021-08-03 18:48] LABS: Appearance Urine CLEAR; Color Urine YELLOW; Glucose Urine UA >=1000 MG/DL (NEG); Leukocyte Esterase Urine NEG (NEG); Nitrite Urine NEG (NEG); PH 5.5 (5.0-8.0); Specific Gravity - Urine >= 1.030 (1.005-1.025); UACC Culture Trigger NO; Urine Blood 3+ (NEG); Urine Ketones NEG (NEG); Urine Protein NEG (NEG-TRACE)
[2021-08-03 18:54] LABS: WBC Urine 0 /HPF (0-4)
[2021-08-03 18:55] LABS: Bacteria Urine TRACE /LPF; Squamous Epithelial Cell Urine TRACE /LPF
== END 2021-08-03 19:45 | disposition home or self-care (01) ==
PROVIDERS: Nurse Practitioner Family; Emergency Provider Emergency Medicine Emergency Medical Services
DX: B34.9 Viral infection, unspecified (principal); R10.9 Unspecified abdominal pain; R07.89 Other chest pain; R51.9 Headache, unspecified; R05.9 Cough, unspecified; Z20.822 Contact with and (suspected) exposure to COVID-19; Z79.899 Other long term (current) drug therapy
CPT/HCPCS: 36415; 71045; 80048; 81001; 85025; 87502; 87635; 93005; 96361; 96374; 99284; J2405

== ENCOUNTER 2021-09-28 08:29 | Emergency (ER) | payer MEDICAID, SELFPAY ==
[2021-09-28 08:40] VITALS: BP 144/87; PULSE 89; RESP 16; TEMP 36.5; O2SAT 99; BMI 40.3
--- NOTE | 2021-09-28 10:00 | ED.GENADULT ---
HPI - General Adult General Chief complaint: Back Pain/Injury Stated complaint: right arm and back pain Time Seen by Provider: 09/28/21 09:18 Source: patient Mode of arrival: ambulatory History of Present Illness HPI narrative: 36-year-old female with a past medical history of arthritis presenting to the ED complaining right-sided upper back/neck pain radiating down right arm worsening since Saturday. Has been taking ibuprofen without relief. Denies any trauma, fall/or heavy lifting. Denies numbness, tingling, weakness, chest pain, shortness of breath, headache, vision changes Onset (ago): day(s) Related Data Previous Rx's Medication Instructions Recorded cyclobenzaprine 5 mg tablet 5 mg PO BEDTIME PRN muscle spasm 01/31/21 #3 tabs acetaminophen 500 mg tablet 500 mg PO Q6H PRN pain or fever 02/03/21 (Tylenol Extra Strength) #20 tabs cyclobenzaprine 5 mg tablet 5 mg PO Q8H PRN pain (scale score 02/03/21 7-10) 5 days #14 tabs lidocaine 5 % topical patch 1 patch topical DAILY PRN pain #30 02/03/21 (Lidoderm) ea naproxen 500 mg tablet 500 mg PO BID PRN pain 10 days #20 02/03/21 tabs amoxicillin 875 mg-potassium 1 tab PO Q12H 10 days #20 tabs 03/11/21 clavulanate 125 mg tablet (Augmentin) acetaminophen 500 mg tablet 500 mg PO Q6H PRN fever or pain 09/28/21 (Tylenol Extra Strength) #14 tabs cyclobenzaprine 5 mg tablet 5 mg PO Q8H PRN pain (scale score 09/28/21 7-10) 5 days #14 tabs lidocaine 5 % topical patch 1 patch topical DAILY PRN pain #30 09/28/21 (Lidoderm) ea naproxen 500 mg tablet 500 mg PO BID PRN pain 10 days #20 09/28/21 tabs Allergies Allergy/AdvReac Type Severity Reaction Status Date / Time albuterol [ALBUTEROL] Allergy Unknown DIFFICULTY Verified 02/04/21 21:11 BREATHING Albuterol AdvReac Unknown Difficulty Uncoded 02/04/21 21:11 Breathing Review of Systems Review of Systems: Constitutional: No Fever, No Chills ENT/Mouth: No Ear Pain, No Nasal Congestion, No Sinus Pain, No Hoarseness, No sore throat, No Rhinorrhea, No Swallowing Difficulty Cardiovascular: No Chest Pain, No SOB Respiratory: No Cough, No Sputum, No Wheezing Gastrointestinal: No Nausea, No Vomiting, No Diarrhea, No Abdominal pain Genitourinary: No Dysuria, No Urinary Frequency, No Hematuria, No Urinary Incontinence/retention Musculoskeletal: + joint pain, No Myalgias, No Joint Swelling Skin: No Skin Lesions, No rash Neuro: No Weakness, No Numbness, No Paresthesias Yes all other systems are reviewed and are negative [facility] Past Medical History Attestation statement: The following information was validated with the patient. Social History Social History Alcohol intake: unknown Patient Tobacco Use Status: Tobacco use Unknown Advance Directives: No Advance Directives Information Provided: No Physical Exam ED Vital Signs: Vital Signs - 24 hr 09/28/21 08:40 Temperature 97.7 F Pulse Rate 89 Respiratory Rate 16 Blood Pressure 144/87 H Pulse Oximetry 99 Oxygen Delivery Method Room Air BMI result Body Mass Index 40.3 Const General: cooperative, healthy appearing and no acute distress Orientation/consciousness: patient oriented x3 Limitations: no limitations HENMT Head: Yes normal to inspection and Yes atraumatic Ears: hearing grossly normal bilaterally General nose exam: Normal external nose present Face and sinus: Yes normal facial exam Eyes General: appearance normal, both eyes and all related structures EOM: EOMs intact bilaterally Neck Other: No midline cervical spinous tenderness. + right-sided trapezius muscle tenderness to palpation and palpable muscle spasming. Pain with head movement to left side Neck: Yes normal visual inspection, Yes no meningeal signs, Yes supple and No anterior neck swelling Resp Effort & Inspection: normal respiratory effort and no respiratory distress Auscultation: clear to auscultation bilaterally Cardio Rate: regular rate Heart sounds: S1 normal heart sound present and S2 normal heart sound present Back/Spine/Pelvis Other: No midline thoracic/lumbar spinous tenderness/step-off or deformity Skin Rashes: no rashes Wounds: no wounds Neuro General: patient oriented x3, tone normal and no meningeal signs Gait exam (Neuro): Normal gait present Extrem Other: Right shoulder nontender. Neurovascular intact distally. Limited internal rotation flexion secondary to pain General: Yes normal to inspection Medical Decision Making MDM Narrative Medical decision making narrative: 36-year-old female with a past medical history of arthritis presenting to the ED complaining right-sided upper back/neck pain radiating down right arm worsening since Saturday. On exam vital signs stable, NAD, no midline spinous tenderness throughout, pain elicited on palpation and movement consistent with MSK pain/strain and muscle spasming. Low concern for fracture, meningitis/encephalitis, CVT/dissection Medical Records Medical records reviewed: Yes I reviewed the patient's medical records. Lab Data Lab results reviewed: Yes I reviewed the patient's lab results. Discharge Plan Discharge Clinical Impression: Trapezius muscle strain Patient Disposition: Home, Self-Care Instructions: Muscle Strain (ED) Additional Instructions: Your pain is likely musculoskeletal Flexeril is a muscle relaxer, take at night as it makes you drowsy, do not drive, drink alcohol, or operate machinery while taking it Naproxen as an anti-inflammatory / pain medication, take with food Lidoderm patches are numbing patches, apply to painful area In addition take Tylenol at home If symptoms persist or worsen, pain becomes unbearable, you developed urinary retention or incontinence, or weakness return to the ED Prescriptions: New acetaminophen [Tylenol Extra Strength] 500 mg tablet 500 mg PO Q6H PRN (Reason: fever or pain) Qty: 14 0RF lidocaine [Lidoderm] 5 % adhesive patch,medicated 1 patch topical DAILY MDD remove after 12 hours PRN (Reason: pain) Qty: 30 0RF Rx Instructions: leave on most painful area for up to 12 hrs naproxen 500 mg tablet 500 mg PO BID PRN (Reason: pain) 10 Days Qty: 20 0RF cyclobenzaprine 5 mg tablet 5 mg PO Q8H PRN (Reason: pain (scale score 7-10)) 5 Days Qty: 14 0RF No Action cyclobenzaprine 5 mg tablet 5 mg PO BEDTIME PRN (Reason: muscle spasm) Qty: 3 0RF acetaminophen [Tylenol Extra Strength] 500 mg tablet 500 mg PO Q6H PRN (Reason: pain or fever) Qty: 20 0RF lidocaine [Lidoderm] 5 % adhesive patch,medicated 1 patch topical DAILY MDD remove after 12 hours PRN (Reason: pain) Qty: 30 0RF Rx Instructions: leave on most painful area for up to 12 hrs naproxen 500 mg tablet 500 mg PO BID PRN (Reason: pain) 10 Days Qty: 20 0RF cyclobenzaprine 5 mg tablet 5 mg PO Q8H PRN (Reason: pain (scale score 7-10)) 5 Days Qty: 14 0RF amoxicillin-pot clavulanate [Augmentin] 875-125 mg tablet 1 tab PO Q12H 10 Days Qty: 20 0RF Referrals: [place],[facility] [Primary Care Provider] - 3 days Interventions: ED Discharge Assessment Last Done: 09/28/21 10:26 Discharge Date/Time: 09/28/21 10:28
[2021-09-28] MEDS: Acetaminophen 325 MG TABLET 650 MG PO (10:18)
[2021-09-28] MEDS: Lidocaine 4 % Patch ADH..PATCH 1 PATCH TRANSDERMA (10:19)
[2021-09-28] MEDS: diazePAM 2 MG TABLET 5 MG PO (10:20)
== END 2021-09-28 10:28 | disposition home or self-care (01) ==
PROVIDERS: Emergency Provider Emergency Medicine
DX: S46.811A Strain of other muscles, fascia and tendons at shoulder and upper arm level, right arm, initial encounter (principal); X58.XXXA Exposure to other specified factors, initial encounter; Y93.9 Activity, unspecified; Y92.9 Unspecified place or not applicable; Y99.9 Unspecified external cause status
CPT/HCPCS: 99283

== ENCOUNTER 2021-09-28 16:26 | Emergency (ER) | payer MEDICAID, SELFPAY ==
--- NOTE | ~2021-09-28 | XR_ITS ---
EXAMINATION: XR CHEST CLINICAL INFORMATION: Chest pain. COMPARISON: Chest radiograph dated from 08/03/2021. TECHNIQUE: PA view of the chest was obtained. FINDINGS: Normal appearance of the cardiomediastinal silhouette. No focal airspace opacities, pleural effusions or pneumothorax. No acute osseous abnormalities. XR/XR chest 1V IMPRESSION: No acute cardiopulmonary findings.
[2021-09-28 19:37] VITALS: BP 159/80; PULSE 100; RESP 18; TEMP 37; O2SAT 100; BMI 35.5
--- NOTE | 2021-09-28 22:36 | ECG_ITS ---
Test Reason : cp Blood Pressure : / mmHG Vent. Rate : 098 BPM Atrial Rate : 098 BPM P-R Int : 164 ms QRS Dur : 084 ms QT Int : 358 ms P-R-T Axes : 044 015 022 degrees QTc Int : 457 ms Normal sinus rhythm Normal EKG When compared with ECG of 03-AUG-2021 17:40, No significant change was found Referred By: Wilfrid Cabrera Electronically Signed By:BRANDIE CUELLAR
--- NOTE | 2021-09-28 22:40 | ED.GENADULT ---
HPI - General Adult General Chief complaint: General Medical Stated complaint: seen in er today numbness in rt hand and shoulder Time Seen by Provider: 09/28/21 18:17 Source: patient Mode of arrival: ambulatory Limitations: no limitations History of Present Illness HPI narrative: This is a 36 years old female she was seen early in this emergency department because of right shoulder pain and right arm pain she was Dioni's with trapezius strain presented to the ED again because she is still in pain despite the anti-inflammatory medication and a muscle relaxant. Denies any fever chills vomiting. The symptoms been ongoing for about 5 days. The pain goes from the right shoulder to the right hand Onset (ago): day(s) (5) Location: upper extremity (rt arm) Severity: moderate Pain Consistency: constant Associated symptoms: denies other symptoms Related Data Previous Rx's Medication Instructions Recorded cyclobenzaprine 5 mg tablet 5 mg PO BEDTIME PRN muscle spasm 01/31/21 #3 tabs acetaminophen 500 mg tablet 500 mg PO Q6H PRN pain or fever 02/03/21 (Tylenol Extra Strength) #20 tabs cyclobenzaprine 5 mg tablet 5 mg PO Q8H PRN pain (scale score 02/03/21 7-10) 5 days #14 tabs lidocaine 5 % topical patch 1 patch topical DAILY PRN pain #30 02/03/21 (Lidoderm) ea naproxen 500 mg tablet 500 mg PO BID PRN pain 10 days #20 02/03/21 tabs amoxicillin 875 mg-potassium 1 tab PO Q12H 10 days #20 tabs 03/11/21 clavulanate 125 mg tablet (Augmentin) acetaminophen 500 mg tablet 500 mg PO Q6H PRN fever or pain 09/28/21 (Tylenol Extra Strength) #14 tabs cyclobenzaprine 5 mg tablet 5 mg PO Q8H PRN pain (scale score 09/28/21 7-10) 5 days #14 tabs lidocaine 5 % topical patch 1 patch topical DAILY PRN pain #30 09/28/21 (Lidoderm) ea naproxen 500 mg tablet 500 mg PO BID PRN pain 10 days #20 09/28/21 tabs oxycodone 5 mg capsule 5 mg PO Q8H PRN pain #12 caps 09/28/21 Allergies Allergy/AdvReac Type Severity Reaction Status Date / Time albuterol [ALBUTEROL] Allergy Unknown DIFFICULTY Verified 02/04/21 21:11 BREATHING Albuterol AdvReac Unknown Difficulty Uncoded 02/04/21 21:11 Breathing Review of Systems Review of Systems: Yes all other systems are reviewed and are negative Constitutional: Constitutional: Reports no additional constitutional complaints ENT: Reports system reviewed and no additional complaints, except as documented Cardiovascular: Cardiovascular: Reports no additional cardiovascular complaints Respiratory: Respiratory: Reports no additional respiratory complaints Gastrointestinal: Gastrointestinal: Reports no additional gastrointestinal complaints Musculoskeletal: Musculoskeletal: Reports as per HPI Psychiatric: Psychiatric: Reports no additional psychiatric complaints COUNTS INCLUDE 234 BEDS AT THE [facility] Past Medical History Attestation statement: The following information was validated with the patient. COUNTS INCLUDE 234 BEDS AT THE [facility] Narrative: History of diabetes type 2 Social History Social History Alcohol intake: unknown Patient Tobacco Use Status: Tobacco use Unknown Advance Directives: No Physical Exam ED Vital Signs: Vital Signs - 24 hr 09/28/21 19:37 Temperature 98.6 F Pulse Rate 100 Respiratory Rate 18 Blood Pressure 159/80 H Pulse Oximetry 100 Oxygen Delivery Method Room Air BMI result Body Mass Index 35.5 Const Other: On examination she looks well she is no toxic-appearing General: cooperative Nutritional Appearance: well nourished Orientation/consciousness: patient oriented x3 [facility] Head: Yes normal to inspection and Yes No palpable skull fracture present Face and sinus: Yes normal facial exam Throat: Yes posterior oropharynx normal Neck Neck: Yes normal visual inspection, Yes no lymphadenopathy and Yes no meningeal signs Thyroid: Thyroid normal Chest Chest palpation & inspection: normal inspection of the chest Resp Effort & Inspection: normal respiratory effort Auscultation: clear to auscultation bilaterally Cardio Jugular venous distension: no JVD Rate: regular rate Rhythm: regular rhythm GI Inspection: Yes normal to inspection Palpation (GI): Soft to palpation, not firm and nontender Skin General skin exam: no rashes or lesions noted and elasticity normal Lesions: no lesions Rashes: no rashes Neuro General: patient oriented x3 and no meningeal signs Cranial nerves: Yes CN's II-XII intact bilaterally Cognition (Neuro): normal cognition Gait exam (Neuro): Normal gait present Extrem Other: There is tenderness in the right trapezius muscle since tenderness in the shoulder arm and forearm Right upper extremity: normal capillary refill; no cyanosis and no edema Course Course Course Narrative: Chest x-ray is normal, electrocardiogram no ischemia, patient has a history of cervical spine DJD this is most likely a cervical radiculopathy. I.e. told the patient to follow-up with the PCP she may need an MRI as outpatient. The patient has an appointment with the PCP in about a week. Medical Decision Making MDM Narrative Medical decision making narrative: The etiology of this pain is multifactorial he could be cervical radiculopathy, trapezius strain. She has good perfusion I doubt that she has a muscular problem, there is no swelling I doubt that she has a DVT. We will get electrocardiogram because they or history of diabetes, we will also get a chest x-ray. Will try for the pain oxycodone Imaging Data Chest x-ray: Radiologist's impression: EXAMINATION: XR CHEST CLINICAL INFORMATION: Chest pain. COMPARISON: Chest radiograph dated from 08/03/2021. TECHNIQUE: PA view of the chest was obtained. FINDINGS: Normal appearance of the cardiomediastinal silhouette. No focal airspace opacities, pleural effusions or pneumothorax. No acute osseous abnormalities. XR/XR chest 1V IMPRESSION: No acute cardiopulmonary findings. ? Dictated By: Liana Montoya Signed By: <Electronically signed by Liana? Lindsay in OV> 09/28/21 9116 ECG Data Attestation: I personally reviewed and interpreted this ECG as follows: Pacemaker model: NSR [address]-t changes Discharge Plan Discharge Clinical Impression: Cervical radicular pain Patient Disposition: Home, Self-Care Instructions: Cervical Radiculopathy (ED) Additional Instructions: Follow-up with your primary care physician return if you worse Prescriptions: New oxycodone 5 mg capsule 5 mg PO Q8H PRN (Reason: pain) Qty: 12 0RF Rx Instructions: Partial Fill upon patient request. No Action cyclobenzaprine 5 mg tablet 5 mg PO BEDTIME PRN (Reason: muscle spasm) Qty: 3 0RF acetaminophen [Tylenol Extra Strength] 500 mg tablet 500 mg PO Q6H PRN (Reason: pain or fever) Qty: 20 0RF lidocaine [Lidoderm] 5 % adhesive patch,medicated 1 patch topical DAILY MDD remove after 12 hours PRN (Reason: pain) Qty: 30 0RF Rx Instructions: leave on most painful area for up to 12 hrs naproxen 500 mg tablet 500 mg PO BID PRN (Reason: pain) 10 Days Qty: 20 0RF cyclobenzaprine 5 mg tablet 5 mg PO Q8H PRN (Reason: pain (scale score 7-10)) 5 Days Qty: 14 0RF acetaminophen [Tylenol Extra Strength] 500 mg tablet 500 mg PO Q6H PRN (Reason: fever or pain) Qty: 14 0RF lidocaine [Lidoderm] 5 % adhesive patch,medicated 1 patch topical DAILY MDD remove after 12 hours PRN (Reason: pain) Qty: 30 0RF Rx Instructions: leave on most painful area for up to 12 hrs naproxen 500 mg tablet 500 mg PO BID PRN (Reason: pain) 10 Days Qty: 20 0RF cyclobenzaprine 5 mg tablet 5 mg PO Q8H PRN (Reason: pain (scale score 7-10)) 5 Days Qty: 14 0RF amoxicillin-pot clavulanate [Augmentin] 875-125 mg tablet 1 tab PO Q12H 10 Days Qty: 20 0RF
[2021-09-28] MEDS: oxyCODONE HCl Immed Release 5 MG TABLET 10 MG PO (23:13)
[2021-09-28] MEDS: Ketorolac Tromethamine 60 MG/2 ML VIAL IM (23:52)
== END 2021-09-29 00:36 | disposition home or self-care (01) ==
PROVIDERS: Emergency Provider Emergency Medicine
DX: M54.12 Radiculopathy, cervical region (principal); E11.9 Type 2 diabetes mellitus without complications
CPT/HCPCS: 71045; 93005; 96372; 99284; J1885

== ENCOUNTER 2021-09-30 23:41 | Emergency (ER) | payer MEDICAID, SELFPAY ==
[2021-09-30 23:44] VITALS: BP 156/89; PULSE 98; RESP 19; TEMP 36.4; O2SAT 99; BMI 42.3
--- NOTE | 2021-10-01 02:15 | ED.GENADULT ---
HPI - General Adult General Chief complaint: Extremity Problem Stated complaint: Right shoulder, arm pain, numbness in forearm Time Seen by Provider: 10/01/21 02:13 Source: patient Mode of arrival: ambulatory Limitations: no limitations History of Present Illness HPI narrative: 36-year-old female came in for evaluation of right shoulder, and right arm for 8 days now. Patient is complaining of neck pain that radiates down to the back of right shoulder down to the right arm causing tingling to the 4th and 5th fingers symptoms started about 8 days ago patient was seen in the emergency department twice due to severe shooting pain patient was prescribed NSAIDs and oxycodone with no relief of her symptoms. Pain described as shooting pain from the neck down to the back of the right shoulder and right arm electrical shooting that is been constant and severe 10 out of ten with no relieving factor, pain is worse with moving the neck. Related Data Previous Rx's Medication Instructions Recorded cyclobenzaprine 5 mg tablet 5 mg PO BEDTIME PRN muscle spasm 01/31/21 #3 tabs acetaminophen 500 mg tablet 500 mg PO Q6H PRN pain or fever 02/03/21 (Tylenol Extra Strength) #20 tabs cyclobenzaprine 5 mg tablet 5 mg PO Q8H PRN pain (scale score 02/03/21 7-10) 5 days #14 tabs lidocaine 5 % topical patch 1 patch topical DAILY PRN pain #30 02/03/21 (Lidoderm) ea naproxen 500 mg tablet 500 mg PO BID PRN pain 10 days #20 02/03/21 tabs amoxicillin 875 mg-potassium 1 tab PO Q12H 10 days #20 tabs 03/11/21 clavulanate 125 mg tablet (Augmentin) acetaminophen 500 mg tablet 500 mg PO Q6H PRN fever or pain 09/28/21 (Tylenol Extra Strength) #14 tabs cyclobenzaprine 5 mg tablet 5 mg PO Q8H PRN pain (scale score 09/28/21 7-10) 5 days #14 tabs lidocaine 5 % topical patch 1 patch topical DAILY PRN pain #30 09/28/21 (Lidoderm) ea naproxen 500 mg tablet 500 mg PO BID PRN pain 10 days #20 09/28/21 tabs oxycodone 5 mg capsule 5 mg PO Q8H PRN pain #12 caps 09/28/21 prednisone 20 mg tablet 20 mg PO BID #10 tabs 10/01/21 Allergies Allergy/AdvReac Type Severity Reaction Status Date / Time albuterol [ALBUTEROL] Allergy Unknown DIFFICULTY Verified 09/30/21 23:44 BREATHING Albuterol AdvReac Unknown Difficulty Uncoded 09/30/21 23:44 Breathing Review of Systems Review of Systems: All other systems are reviewed and are negative Constitutional: Reports as per HPI and Reports no additional constitutional complaints Eyes: Reports as per HPI and Reports no additional eye complaints Reports system reviewed and no additional complaints, except as documented Cardiovascular: Reports as per HPI and Reports no additional cardiovascular complaints Respiratory: Reports as per HPI and Reports no additional respiratory complaints Gastrointestinal: Reports as per HPI and Reports no additional gastrointestinal complaints Genitourinary: Reports no additional female genitourinary complaints Musculoskeletal: Reports no additional musculoskeletal complaints Skin/Breast: Reports system reviewed and no additional complaints, except as docu Psychiatric: Reports no additional psychiatric complaints Endocrine: Reports no additional endocrine complaints Hematologic/Lymphatic: Reports no additional hematologic/lymphatic complaints Allergic/Immunologic: Reports no additional allergic/immunologic complaints Reports system reviewed and no additional complaints, except as documented and Reports Abnormal speech present [facility] Social History Social History Alcohol intake: unknown Patient Tobacco Use Status: Tobacco use Unknown Advance Directives: No Advance Directives Information Provided: No Physical Exam ED Vital Signs: Vital Signs - 24 hr 09/30/21 23:44 Temperature 97.6 F Pulse Rate 98 Respiratory Rate 19 Blood Pressure 156/89 H Pulse Oximetry 99 Oxygen Delivery Method Room Air BMI result Body Mass Index 42.3 Vital signs have been reviewed as appeared to be correct. Blood pressure normal. Heart rate normal. Respiration rate normal. Temperature normal. Oxygen saturation normal. Appearance: Alert. Oriented X3. No acute distress. Head: Normal external exam. Normocephalic. Atraumatic. No Padron signs noted. No raccoon eyes noted Eyes: PERRLA. EOMI. Conjunctiva and sclera normal. Eyelids normal. ENT: TM's Normal. Pharynx normal. Uvula midline. Moist mucous membranes. No trismus noted. No drooling noted. No muffled voice noted. Neck: Normal inspection. Neck supple. FROM. No adenopathy. Thyroid Normal. No meningeal signs. No neck mass noted. CVS: Normal heart rate and rhythm. Heart sound normal. No murmurs noted. Pulses normal throughout. Respiratory: No respiratory distress. Painless inspiration. Breath sounds normal. No wheezes/rales/rhonchi noted. Chest nontender. No accessory muscle usage noted or decreased air movement noted. Abdomen: Soft and nontender. Bowel sounds normal in all 4 quadrants. No distention noted. No organomegaly noted. No visible injury noted. Back: No CVA tenderness. Full range of motion noted. Skin: Skin warm and dry. Normal skin color. Normal skin turgor. No rashes/lesions/lacerations noted. Extremities: Right shoulder/lateral right upper extremities exam no swelling, no deformity, increase shooting pain to the right upper extremities with turning the head to the left side. Neuro: Oriented X 3. Cranial nerve exam: II-XII are grossly intact No motor deficit. No sensory deficit. Reflexes normal. Course Course Course Narrative: Right shoulder/right arm pain secondary to cervical radiculopathy. Will add prednisone and to continue with oxycodone p.r.n. pain. Discharge Plan Discharge Clinical Impression: Cervical radiculopathy Patient Disposition: Home, Self-Care Instructions: Cervical Radiculopathy (ED) Prescriptions: New prednisone 20 mg tablet 20 mg PO BID Qty: 10 0RF No Action cyclobenzaprine 5 mg tablet 5 mg PO BEDTIME PRN (Reason: muscle spasm) Qty: 3 0RF acetaminophen [Tylenol Extra Strength] 500 mg tablet 500 mg PO Q6H PRN (Reason: pain or fever) Qty: 20 0RF lidocaine [Lidoderm] 5 % adhesive patch,medicated 1 patch topical DAILY MDD remove after 12 hours PRN (Reason: pain) Qty: 30 0RF Rx Instructions: leave on most painful area for up to 12 hrs naproxen 500 mg tablet 500 mg PO BID PRN (Reason: pain) 10 Days Qty: 20 0RF cyclobenzaprine 5 mg tablet 5 mg PO Q8H PRN (Reason: pain (scale score 7-10)) 5 Days Qty: 14 0RF acetaminophen [Tylenol Extra Strength] 500 mg tablet 500 mg PO Q6H PRN (Reason: fever or pain) Qty: 14 0RF lidocaine [Lidoderm] 5 % adhesive patch,medicated 1 patch topical DAILY MDD remove after 12 hours PRN (Reason: pain) Qty: 30 0RF Rx Instructions: leave on most painful area for up to 12 hrs naproxen 500 mg tablet 500 mg PO BID PRN (Reason: pain) 10 Days Qty: 20 0RF cyclobenzaprine 5 mg tablet 5 mg PO Q8H PRN (Reason: pain (scale score 7-10)) 5 Days Qty: 14 0RF oxycodone 5 mg capsule 5 mg PO Q8H PRN (Reason: pain) Qty: 12 0RF Rx Instructions: Partial Fill upon patient request. amoxicillin-pot clavulanate [Augmentin] 875-125 mg tablet 1 tab PO Q12H 10 Days Qty: 20 0RF Referrals: [facility] [Primary Care Provider] - Stand Alone Forms: Work/School Release
[2021-10-01 02:33] VITALS: RESP 16
[2021-10-01] MEDS: HYDROmorphone HCl 2 MG/ML VIAL IM (02:33)
[2021-10-01] MEDS: predniSONE 20 MG TABLET 60 MG PO (02:33)
== END 2021-10-01 03:00 | disposition home or self-care (01) ==
PROVIDERS: Emergency Provider Emergency Medicine
DX: M54.12 Radiculopathy, cervical region (principal); Z79.899 Other long term (current) drug therapy
CPT/HCPCS: 96372; 99284; J1170

== ENCOUNTER 2021-10-02 15:18 | Emergency (ER) | payer MEDICAID, SELFPAY ==
[2021-10-02 16:17] VITALS: BP 134/79; PULSE 103; RESP 16; TEMP 36.3; O2SAT 96; BMI 41.3
--- NOTE | 2021-10-02 17:12 | ED.EXTPRO ---
HPI - Extremity Problem General Chief complaint: Extremity Injury, Upper Stated complaint: R arm pain Time Seen by Provider: 10/02/21 16:34 Source: patient Mode of arrival: ambulatory Limitations: no limitations History of Present Illness HPI Narrative: 36 yold female with cervical radiculopathy presents to the ED for neck pain radiating down right shoulder, right arm. patient states no recent trauma, headche, nuasea, vomitting, facial droop, paralysis of extremities, loss of vision, slurred speech, swelling of extremites, chest pain, or shortness of breath. Related Data Previous Rx's Medication Instructions Recorded cyclobenzaprine 5 mg tablet 5 mg PO BEDTIME PRN muscle spasm 01/31/21 #3 tabs acetaminophen 500 mg tablet 500 mg PO Q6H PRN pain or fever 02/03/21 (Tylenol Extra Strength) #20 tabs cyclobenzaprine 5 mg tablet 5 mg PO Q8H PRN pain (scale score 02/03/21 7-10) 5 days #14 tabs lidocaine 5 % topical patch 1 patch topical DAILY PRN pain #30 02/03/21 (Lidoderm) ea naproxen 500 mg tablet 500 mg PO BID PRN pain 10 days #20 02/03/21 tabs amoxicillin 875 mg-potassium 1 tab PO Q12H 10 days #20 tabs 03/11/21 clavulanate 125 mg tablet (Augmentin) acetaminophen 500 mg tablet 500 mg PO Q6H PRN fever or pain 09/28/21 (Tylenol Extra Strength) #14 tabs cyclobenzaprine 5 mg tablet 5 mg PO Q8H PRN pain (scale score 09/28/21 7-10) 5 days #14 tabs lidocaine 5 % topical patch 1 patch topical DAILY PRN pain #30 09/28/21 (Lidoderm) ea naproxen 500 mg tablet 500 mg PO BID PRN pain 10 days #20 09/28/21 tabs oxycodone 5 mg capsule 5 mg PO Q8H PRN pain #12 caps 09/28/21 prednisone 20 mg tablet 20 mg PO BID #10 tabs 10/01/21 ketorolac 10 mg tablet 10 mg PO Q6H PRN pain 5 days #20 10/02/21 tabs prednisone 20 mg tablet 60 mg PO DAILY 5 days #15 tabs 10/02/21 Allergies Allergy/AdvReac Type Severity Reaction Status Date / Time albuterol [ALBUTEROL] Allergy Unknown DIFFICULTY Verified 09/30/21 23:44 BREATHING Albuterol AdvReac Unknown Difficulty Uncoded 09/30/21 23:44 Breathing Review of Systems Review of Systems: Right neck pain and arm pain Yes all other systems are reviewed and are negative [facility] Social History Social History Alcohol intake: unknown Patient Tobacco Use Status: Tobacco use Unknown Advance Directives: No Advance Directives Information Provided: No Physical Exam Vital Signs: Vital Signs: Last Vital Signs Temp 97.3 F 10/02/21 16:17 Pulse 103 H 10/02/21 16:17 Resp 16 10/02/21 16:17 BP 134/79 10/02/21 16:17 Pulse Ox 96 10/02/21 16:17 O2 Del Method 10/02/21 16:17 BMI result Body Mass Index 41.3 Const: General: cooperative, healthy appearing, comfortable, no acute distress, well developed, alert, awake and Physically active Orientation/consciousness: patient oriented x3 HEENT: Head: Yes normal to inspection, Yes No palpable skull fracture present, Yes normocephalic, Yes atraumatic and No abrasion Eyes: General: appearance normal, both eyes and all related structures Neck: Neck: Yes normal visual inspection, Yes full ROM, Yes no lymphadenopathy, Yes no meningeal signs, Yes trachea midline, Yes supple, No anterior neck swelling and Yes tender (mild cervical posterior tenderness) Chest: Chest palpation & inspection: normal inspection of the chest and normal palpation of entire chest wall Resp: Effort & Inspection: normal respiratory effort and able to speak in complete sentences Auscultation: clear to auscultation bilaterally Cardio: Jugular venous distension: no JVD Heart sounds: S1 normal heart sound present and S2 normal heart sound present GI: Inspection: Yes normal to inspection and No abdominal wall ecchymosis Palpation (GI): Soft to palpation, not firm, nontender, no guarding and not rigid : General: No CVA tenderness and Yes no CVA tenderness Back/Spine/Pelvis: Back: no CVA tenderness, No CVA tenderness and No back tenderness Skin: General skin exam: no rashes or lesions noted and elasticity normal Neuro: General: patient oriented x3, gait normal, tone normal, moves all extremities, no meningeal signs and no focal motor deficits Cranial nerves: Yes CN's II-XII intact bilaterally Extrem: General: Yes normal to inspection Shoulder/upper arm images: 1. right posterior cervical/shoulder tenderness on palpation. negative for ecchymosis, crepitus, or deformity. Right upper extremity negative for swelling, pitting edmea, ecchymosis, redness, warmth, or coldness. NUero and vascular exam is intact. Motor exam of shoulder limited due to pain. Psych: Appearance: grossly normal, well kempt and not disheveled Course Course Course Narrative: Pain meds ordered. Reevaluation(s) Reevaluation #1: Symptoms due cerivcal radiculpathy. no need for repeat imaging. Patient has CT scan which shows cervical radiculopahty. Not suspecting cardiac etiology, pulmonary etiology, or extremity vascular etiology. Toradol and prednisone ordered Time: 17:21 MDM - Extremity (Nontraumatic) MDM Narrative Medical decision making narrative: Cervical radicolpahty Discharge Plan Discharge Clinical Impression: Cervical radiculopathy Patient Disposition: Home, Self-Care Instructions: Cervical Radiculopathy (ED) Additional Instructions: Necesitar? un seguimiento con un cirujano ortop?dico de [place] para mcqueen radiculopat?a cervical. Regrese al servicio de urgencias por hinchaz?n de la extremidad superior derecha, enrojecimiento/frialdad/calor/decoloraci?n darci azulada de las extremidades, dolor tor?cico, dificultad para respirar, entumecimiento, hormigueo, ca?da facial, fiebre, p?rdida de la visi?n, dolor de rosmery, dificultad para hablar, dolor tor?cico en la inspiraci?n, dolor abdominal, o cualquier otro s?ntoma preocupante. Llame a [facility] ([phone]) [address] [place] [address] Drive [address] [place] [address]. Llame a mcqueen PCP tambi?n para derivaci?n a un cirujano ortop?dico y fisioterapia para radiculopat?a cervical. No tome motrin, naproxeno ni rosy?n otro FRANNY mientras haylee Toradol. Prescriptions: New prednisone 20 mg tablet 60 mg PO DAILY 5 Days Qty: 15 0RF ketorolac 10 mg tablet 10 mg PO Q6H PRN (Reason: pain) 5 Days Qty: 20 0RF Rx Instructions: Patient received 30mg IM toradol in the ED. No Action cyclobenzaprine 5 mg tablet 5 mg PO BEDTIME PRN (Reason: muscle spasm) Qty: 3 0RF acetaminophen [Tylenol Extra Strength] 500 mg tablet 500 mg PO Q6H PRN (Reason: pain or fever) Qty: 20 0RF lidocaine [Lidoderm] 5 % adhesive patch,medicated 1 patch topical DAILY MDD remove after 12 hours PRN (Reason: pain) Qty: 30 0RF Rx Instructions: leave on most painful area for up to 12 hrs naproxen 500 mg tablet 500 mg PO BID PRN (Reason: pain) 10 Days Qty: 20 0RF cyclobenzaprine 5 mg tablet 5 mg PO Q8H PRN (Reason: pain (scale score 7-10)) 5 Days Qty: 14 0RF acetaminophen [Tylenol Extra Strength] 500 mg tablet 500 mg PO Q6H PRN (Reason: fever or pain) Qty: 14 0RF lidocaine [Lidoderm] 5 % adhesive patch,medicated 1 patch topical DAILY MDD remove after 12 hours PRN (Reason: pain) Qty: 30 0RF Rx Instructions: leave on most painful area for up to 12 hrs naproxen 500 mg tablet 500 mg PO BID PRN (Reason: pain) 10 Days Qty: 20 0RF cyclobenzaprine 5 mg tablet 5 mg PO Q8H PRN (Reason: pain (scale score 7-10)) 5 Days Qty: 14 0RF oxycodone 5 mg capsule 5 mg PO Q8H PRN (Reason: pain) Qty: 12 0RF Rx Instructions: Partial Fill upon patient request. prednisone 20 mg tablet 20 mg PO BID Qty: 10 0RF amoxicillin-pot clavulanate [Augmentin] 875-125 mg tablet 1 tab PO Q12H 10 Days Qty: 20 0RF Stand Alone Forms: Work/School Release Interventions: ED Discharge Assessment Last Done: 10/02/21 18:27 Discharge Date/Time: 10/02/21 18:28 Print Language: Romanian
[2021-10-02] MEDS: predniSONE 20 MG TABLET 40 MG PO (17:20)
[2021-10-02] MEDS: Ketorolac Tromethamine 30 MG/ML VIAL IM (17:20)
== END 2021-10-02 18:28 | disposition home or self-care (01) ==
PROVIDERS: Emergency Provider Emergency Medicine
DX: M54.12 Radiculopathy, cervical region (principal)
CPT/HCPCS: 96372; 99283; 99284; J1885

== ENCOUNTER 2021-12-27 12:48 | Emergency (ER) | payer MEDICAID, SELFPAY ==
[2021-12-27 14:12] VITALS: BP 142/69; PULSE 85; RESP 16; TEMP 36.5; O2SAT 98; BMI 41.9
--- NOTE | 2021-12-27 16:14 | ED_ITS ---
HPI - Back Pain/Injury General Chief Complaint: Back Pain/Injury Stated Complaint: back pain, L leg pain Time Seen by Provider: 12/27/21 16:14 Source: patient Mode of arrival: ambulatory History of Present Illness HPI Narrative: 36-year-old female with a past medical history of cervical radiculopathy, presenting to the ED complaining of acute on chronic left-sided low back pain radiating down left lower extremity. Admits to heavy lifting recently. Denies direct injury/trauma or falls, numbness, tingling, urinary incontinence/retention, hematuria/dysuria, fever. Admits to similar symptoms in the past MD elicited complaint: back pain Onset (ago): day(s) Related Data Previous Rx's Medication Instructions Recorded cyclobenzaprine 5 mg tablet 5 mg PO BEDTIME PRN muscle spasm 01/31/21 #3 tabs acetaminophen 500 mg tablet 500 mg PO Q6H PRN pain or fever 02/03/21 (Tylenol Extra Strength) #20 tabs cyclobenzaprine 5 mg tablet 5 mg PO Q8H PRN pain (scale score 02/03/21 7-10) 5 days #14 tabs lidocaine 5 % topical patch 1 patch topical DAILY PRN pain #30 02/03/21 (Lidoderm) ea naproxen 500 mg tablet 500 mg PO BID PRN pain 10 days #20 02/03/21 tabs amoxicillin 875 mg-potassium 1 tab PO Q12H 10 days #20 tabs 03/11/21 clavulanate 125 mg tablet (Augmentin) acetaminophen 500 mg tablet 500 mg PO Q6H PRN fever or pain 09/28/21 (Tylenol Extra Strength) #14 tabs cyclobenzaprine 5 mg tablet 5 mg PO Q8H PRN pain (scale score 09/28/21 7-10) 5 days #14 tabs lidocaine 5 % topical patch 1 patch topical DAILY PRN pain #30 09/28/21 (Lidoderm) ea naproxen 500 mg tablet 500 mg PO BID PRN pain 10 days #20 09/28/21 tabs oxycodone 5 mg capsule 5 mg PO Q8H PRN pain #12 caps 09/28/21 prednisone 20 mg tablet 20 mg PO BID #10 tabs 10/01/21 ketorolac 10 mg tablet 10 mg PO Q6H PRN pain 5 days #20 10/02/21 tabs prednisone 20 mg tablet 60 mg PO DAILY 5 days #15 tabs 10/02/21 acetaminophen 500 mg tablet 500 mg PO Q6H PRN fever or pain 12/27/21 (Tylenol Extra Strength) #14 tabs cyclobenzaprine 5 mg tablet 5 mg PO Q8H PRN pain (scale score 12/27/21 7-10) 5 days #14 tabs lidocaine 5 % topical patch 1 patch topical DAILY PRN pain #30 12/27/21 (Lidoderm) ea naproxen 500 mg tablet 500 mg PO BID PRN pain 10 days #20 12/27/21 tabs prednisone 20 mg tablet 40 mg PO DAILY 5 days #10 tabs 12/27/21 Allergies Allergy/AdvReac Type Severity Reaction Status Date / Time albuterol [ALBUTEROL] Allergy Unknown DIFFICULTY Verified 09/30/21 23:44 BREATHING Albuterol AdvReac Unknown Difficulty Uncoded 09/30/21 23:44 Breathing Review of Systems Review of Systems: Constitutional: No Fever, No Chills ENT/Mouth: No Ear Pain, No Nasal Congestion, No sore throat, No Rhinorrhea, No Swallowing Difficulty Cardiovascular: No Chest Pain, No SOB Respiratory: No Cough, No Sputum Gastrointestinal: No Nausea, No Vomiting, No Diarrhea, No Constipation, No Abdominal pain Genitourinary: No Dysuria, No Urinary Frequency, No Hematuria, No Urinary Incontinence/retention, No Flank Pain Musculoskeletal: + joint pain, No Myalgias, No Joint Swelling Skin: No Skin Lesions, No rash Neuro: No Weakness, No Numbness, No Paresthesias Yes all other systems are reviewed and are negative Constitutional: Constitutional: Reports as per HPI Neurologic: Denies Sensory deficit (Neuro) [facility] Past Medical History Attestation statement: The following information was validated with the patient. Social History Social History Alcohol intake: unknown Patient Tobacco Use Status: Tobacco use Unknown Advance Directives: No Advance Directives Information Provided: No Physical Exam Vital Signs: Vital Signs: Last Vital Signs Temp 97.7 F 12/27/21 14:12 Pulse 85 12/27/21 14:12 Resp 16 12/27/21 14:12 BP 142/69 H 12/27/21 14:12 Pulse Ox 98 12/27/21 14:12 O2 Del Method 12/27/21 14:12 BMI result Body Mass Index 41.9 Const: General: cooperative, healthy appearing and no acute distress Orientation/consciousness: patient oriented x3 Limitations: no limitations HEENT: Head: Yes normal to inspection and Yes atraumatic Ears: hearing grossly normal bilaterally General nose exam: Normal external nose present Face and sinus: Yes normal facial exam Eyes: General: appearance normal, both eyes and all related structures EOM: EOMs intact bilaterally Neck: Neck: Yes normal visual inspection and Yes no meningeal signs Resp: Effort & Inspection: normal respiratory effort and no respiratory distress Cardio: Rate: regular rate Heart sounds: S1 normal heart sound present and S2 normal heart sound present GI: Inspection: Yes normal to inspection Palpation (GI): Soft to palpation, nontender, no guarding and not rigid : General: Yes no CVA tenderness Back/Spine/Pelvis: Other: No midline thoracic/lumbar spinous tenderness/step-off or deformity. + left- sided thoracic MSK tenderness to palpation reproducing subjective complaint, and left buttock tenderness. No rash, no erythema/ecchymosis. No flail chest. Back: no CVA tenderness Skin: Rashes: no rashes Wounds: no wounds Neuro: Other: Strength intact throughout. No saddle anesthesia. Sensation intact to light touch. Neurovascular intact distally General: patient oriented x3, gait normal, tone normal, no meningeal signs and no focal motor deficits Gait exam (Neuro): Normal gait present Motor exam (neuro): 5/5 motor strength present throughout Sensory Exam: No Sensory deficit (Neuro) Extrem: General: Yes normal to inspection MDM - Back Pain/Injury MDM Narrative Medical decision making narrative: 36-year-old female with a past medical history of cervical radiculopathy, presenting to the ED complaining of acute on chronic left-sided low back pain radiating down left lower extremity. On exam vital signs stable, NAD, nontoxic appearing, physical exam as above no midline spinous tenderness to palpation or red flag symptoms. Concern for sciatica vs herniated disc vs MSK pain/strain vs ? UTI/pyelo or renal stone Plan: UA, symptomatic treatment Differential Diagnosis Differential diagnosis: Likely lumbar radiculopathy, sciatica, strain of lumbar region, renal colic, pyelonephritis and thoracic back pain Medical Records Attestation: I reviewed the patient's medical records. Lab Data Attestation: I reviewed the patient's lab results. Labs: Lab Results 12/27/21 12/27/21 Range/Units 17:12 17:12 Urine Color Yellow Urine Appearance Clear Urine pH 5.5 (5.0-9.0) Ur Specific [place] >= 1.030 H (1.005-1.025) Urine Protein Negative (Neg-Trace) mg/dL Urine Glucose (UA) >=1000 H (Negative) mg/dL Urine Ketones Trace (Negative) mg/dL Urine Blood Negative (Negative) Urine Nitrite Negative (Negative) Ur Leukocyte Esterase Negative (Negative) Urine Test NEGATIVE (NEGATIVE) Discharge Plan Discharge Clinical Impression: Lumbar radiculopathy, Thoracic back pain Patient Disposition: Home, Self-Care Instructions: Back Pain (ED) Additional Instructions: Your pain is likely musculoskeletal Flexeril is a muscle relaxer, take at night as it makes you drowsy, do not drive, drink alcohol, or operate machinery while taking it Prednisone is a steroid which did help with inflammation/pain Naproxen as an anti-inflammatory / pain medication, take with food Lidoderm patches are numbing patches, apply to painful area In addition take Tylenol at home If symptoms persist or worsen, pain becomes unbearable, you developed urinary retention or incontinence, or weakness return to the ED Es probable que mcqueen dolor sea musculoesquel?mariaelena Flexeril es un relajante muscular, t?sloane por la noche ya que te adormece, no conduzcas, bebas alcohol ni operes maquinaria mientras lo nicolette. La prednisona es un esteroide que ayud? con la inflamaci?n/dolor Naproxeno elsie medicamento antiinflamatorio/analg?sico, t?ojeda con alimentos Los parches de Lidoderm son parches anest?sicos, se aplican en el ?diandra dolorida Adem?s haylee Tylenol en casa Si los s?ntomas persisten o empeoran, el dolor se vuelve insoportable, desarroll? retenci?n urinaria o incontinencia, o debilidad, regrese al servicio de urgencias. Prescriptions: New prednisone 20 mg tablet 40 mg PO DAILY 5 Days Qty: 10 0RF acetaminophen [Tylenol Extra Strength] 500 mg tablet 500 mg PO Q6H PRN (Reason: fever or pain) Qty: 14 0RF lidocaine [Lidoderm] 5 % adhesive patch,medicated 1 patch topical DAILY MDD remove after 12 hours PRN (Reason: pain) Qty: 30 0RF Rx Instructions: leave on most painful area for up to 12 hrs naproxen 500 mg tablet 500 mg PO BID PRN (Reason: pain) 10 Days Qty: 20 0RF cyclobenzaprine 5 mg tablet 5 mg PO Q8H PRN (Reason: pain (scale score 7-10)) 5 Days Qty: 14 0RF No Action cyclobenzaprine 5 mg tablet 5 mg PO BEDTIME PRN (Reason: muscle spasm) Qty: 3 0RF acetaminophen [Tylenol Extra Strength] 500 mg tablet 500 mg PO Q6H PRN (Reason: pain or fever) Qty: 20 0RF lidocaine [Lidoderm] 5 % adhesive patch,medicated 1 patch topical DAILY MDD remove after 12 hours PRN (Reason: pain) Qty: 30 0RF Rx Instructions: leave on most painful area for up to 12 hrs naproxen 500 mg tablet 500 mg PO BID PRN (Reason: pain) 10 Days Qty: 20 0RF cyclobenzaprine 5 mg tablet 5 mg PO Q8H PRN (Reason: pain (scale score 7-10)) 5 Days Qty: 14 0RF acetaminophen [Tylenol Extra Strength] 500 mg tablet 500 mg PO Q6H PRN (Reason: fever or pain) Qty: 14 0RF lidocaine [Lidoderm] 5 % adhesive patch,medicated 1 patch topical DAILY MDD remove after 12 hours PRN (Reason: pain) Qty: 30 0RF Rx Instructions: leave on most painful area for up to 12 hrs naproxen 500 mg tablet 500 mg PO BID PRN (Reason: pain) 10 Days Qty: 20 0RF cyclobenzaprine 5 mg tablet 5 mg PO Q8H PRN (Reason: pain (scale score 7-10)) 5 Days Qty: 14 0RF oxycodone 5 mg capsule 5 mg PO Q8H PRN (Reason: pain) Qty: 12 0RF Rx Instructions: Partial Fill upon patient request. prednisone 20 mg tablet 20 mg PO BID Qty: 10 0RF prednisone 20 mg tablet 60 mg PO DAILY 5 Days Qty: 15 0RF ketorolac 10 mg tablet 10 mg PO Q6H PRN (Reason: pain) 5 Days Qty: 20 0RF Rx Instructions: Patient received 30mg IM toradol in the ED. amoxicillin-pot clavulanate [Augmentin] 875-125 mg tablet 1 tab PO Q12H 10 Days Qty: 20 0RF Referrals: Sujatha Gregorio MD [Physician] - Stand Alone Forms: Work/School Release Print Language: Mozambican
[2021-12-27] MEDS: Cyclobenzaprine HCl 5 MG TABLET PO (17:38)
[2021-12-27] MEDS: Ketorolac Tromethamine 30 MG/ML VIAL IM (17:38)
[2021-12-27 17:42] LABS: Appearance Urine Clear; Color Urine Yellow; Glucose Urine UA >=1000 mg/dL (Negative); Leukocyte Esterase Urine Negative (Negative); Nitrite Urine Negative (Negative); PH 5.5 (5.0-9.0); Specific Gravity - Urine >= 1.030 (1.005-1.025); UMIC TRIGGER UACC YES; Urine Blood Negative (Negative); Urine Ketones Trace mg/dL (Negative); Urine Protein Negative (Neg-Trace)
[2021-12-27 17:49] LABS: UPreg QC Valid YES; Urine Pregnancy NEGATIVE (NEGATIVE)
[2021-12-27 18:24] LABS: Bacteria Urine None Seen (None Seen); Hyaline Casts Urine 0-2 /LPF (0-2); Squamous Epithelial Cell Urine 0-2 /HPF (0-2); WBC Urine 0-5 /HPF (0-5)
== END 2021-12-27 18:42 | disposition home or self-care (01) ==
PROVIDERS: Physician Assistant; Emergency Provider Emergency Medicine
DX: M54.16 Radiculopathy, lumbar region (principal); M54.6 Pain in thoracic spine
CPT/HCPCS: 81001; 81025; 96372; 99283; 99284; J1885

== ENCOUNTER → 2022-08-21 12:45 | Outpatient (BNVA) | payer MEDICAID, SELFPAY | PROVIDERS: PCP Registered Nurse; Visit Provider Orthopaedic Surgery | DX: R20.0 Anesthesia of skin (principal); R20.2 Paresthesia of skin; E11.9 Type 2 diabetes mellitus without complications | CPT/HCPCS: 99202 ==

== ENCOUNTER 2022-09-05 10:09 | Outpatient (REF) | payer MEDICAID, SELFPAY ==
--- NOTE | 2022-09-05 | EMG_ITS ---
Please see scanned EMG / Nerve Conduction Report. MTDD
== END 2022-09-05 10:10 | disposition home or self-care (01) ==
LOC: HO.NEURO 10:09
PROVIDERS: PCP Registered Nurse; Visit Provider Registered Nurse
DX: R20.0 Anesthesia of skin (principal); R20.2 Paresthesia of skin
CPT/HCPCS: 95885; 95911

== ENCOUNTER 2022-11-01 10:13 | Outpatient (REF) | payer MEDICAID, SELFPAY ==
--- NOTE | 2022-11-01 | EMG_ITS ---
Bilateral median and ulnar motor and sensory studies were performed. Bilateral radial sensory studies were performed and paraspinal muscles were tested with a needle. IMPRESSION: 1. [id number] bilateral median neuropathy across carpal tunnel. 2. Mild bilateral ulnar neuropathy across cubital tunnel. MD MIRYAM Ambriz/CAREY / [phone]
== END 2022-11-01 10:14 | disposition home or self-care (01) ==
LOC: HO.NEURO 10:13
PROVIDERS: PCP Registered Nurse; Visit Provider Orthopaedic Surgery
DX: R20.0 Anesthesia of skin (principal); R20.2 Paresthesia of skin
CPT/HCPCS: 95860; 95886; 95907; 95911

== ENCOUNTER 2022-12-26 13:23 | Emergency (ER) | payer MEDICAID, SELFPAY ==
[2022-12-26 13:32] VITALS: BP 131/77; PULSE 79; RESP 16; TEMP 36.6; O2SAT 99; BMI 42.6
--- NOTE | 2022-12-26 14:37 | ED_ITS ---
HPI - General Adult General Chief complaint: Back Pain/Injury Stated complaint: R Side Neck Shoulder Pain No Injury Time Seen by Provider: 12/26/22 14:35 Source: patient and behavioral health tech Mode of arrival: ambulatory Limitations: language barrier History of Present Illness HPI narrative: Patient is a 37 year old assigned female at with a history of 3 herniated discs and DM presenting to the emergency department today with right sided neck and shoulder pain. Patient states that she has this issue intermittently and is having another flare. Patient states that Toradol and steroids usually help. Patient states that she consulted a database marketing specialist but they wanted to do surgery that involved going through the neck so she said no. Patient denies any dizziness, lightheadedness, abdominal pain, nausea, vomiting, fever, chills, blurry vision, double vision, loss of vision, chest pain, difficulty breathing, shortness of breath, back pain, night sweats, pain with urination, increased urinary frequency, increased urinary urgency, blood in her urine or stool, syncope or a near syncopal episode, recent trauma or falls, bowel incontinence, bladder incontinence, bowel retention, bladder retention, or any other complaints at this time. Onset (ago): year(s) Location: neck, right and upper extremity Radiation: extremity Severity: mild Severity scale (1-10): 3 Quality: aching Pain Consistency: intermittent Relieving factors: none Exacerbating factors: none Associated symptoms: denies other symptoms Treatments prior to arrival: none Related Data Previous Rx's Medication Instructions Recorded amoxicillin 875 mg-potassium 1 tab PO Q12H 10 days #20 tabs 03/11/21 clavulanate 125 mg tablet (Augmentin) oxycodone 5 mg capsule 5 mg PO Q8H PRN pain #12 caps 09/28/21 ketorolac 10 mg tablet 10 mg PO Q6H PRN pain 5 days #20 10/02/21 tabs acetaminophen 500 mg tablet 500 mg PO Q6H PRN fever or pain 12/27/21 (Tylenol Extra Strength) #14 tabs lidocaine 5 % topical patch 1 patch topical DAILY PRN pain #30 12/27/21 (Lidoderm) ea naproxen 500 mg tablet 500 mg PO BID PRN pain 10 days #20 12/27/21 tabs cyclobenzaprine 5 mg tablet 5 mg PO TID PRN muscle spasm 7 12/26/22 days #21 tabs prednisone 20 mg tablet 20 mg PO DAILY 7 days #7 tabs 12/26/22 Allergies Allergy/AdvReac Type Severity Reaction Status Date / Time albuterol [ALBUTEROL] Allergy Unknown DIFFICULTY Verified 12/26/22 13:32 BREATHING Albuterol AdvReac Unknown Difficulty Uncoded 08/21/22 13:06 Breathing Review of Systems Constitutional: Constitutional: Reports no additional constitutional complaints, Denies chills, Denies fever(s) and Denies night sweats Eyes: Eyes: Reports no additional eye complaints, Denies blurry vision, Denies change in vision, Denies diplopia, Denies eye discharge, Denies loss of vision and Denies eye pain ENT: Denies dizziness and Reports neck pain Cardiovascular: Cardiovascular: Reports no additional cardiovascular complaints, Denies chest pain, Denies lightheadedness, Denies Loss of Consciousness and Denies dyspnea Respiratory: Respiratory: Reports no additional respiratory complaints and Denies dyspnea Gastrointestinal: Gastrointestinal: Reports no additional gastrointestinal complaints, Denies abdominal pain, Denies melena, Denies hematochezia, Denies ch olimpia in bowel habits and Denies change in stool character Genitourinary: Genitourinary: Denies hematuria, Denies urinary frequency, Denies dysuria, Denies urinary incontinence, Denies urinary hesitancy and Denies urinary urgency Musculoskeletal: Musculoskeletal: Reports no additional musculoskeletal complaints, Reports neck pain, Denies numbness and Denies tingling Comments: right shoulder pain Neurologic: Denies dizziness, Denies loss of vision, Denies numbness and Denies tingling Psychiatric: Psychiatric: Reports no additional psychiatric complaints Endocrine: Endocrine: Reports no additional endocrine complaints Hematologic/Lymphatic: Hematologic/Lymphatic: Reports no additional hematologic/lymphatic complaints Allergic/Immunologic: Allergic/Immunologic: Reports no additional a llergic/immunologic complaints PMFSH Past Medical History Attestation statement: The following information was validated with the patient. Source: old records reviewed and nursing notes reviewed Social History Social History Alcohol intake: unknown Patient Tobacco Use Status: Tobacco use Unknown Advance Directives: No Advance Directives Information Provided: Yes Physical Exam ED Vital Signs: Vital Signs - 24 hr 12/26/22 13:32 Temperature 98 F Pulse Rate 79 Respiratory Rate 16 Blood Pressure 131/77 Pulse Oximetry 99 Oxygen Delivery Method Room Air BMI result Body Mass Index 42.6 Const General: cooperative, no acute distress, alert and awake Nutritional Appearance: well nourished Orientation/consciousness: patient oriented x3 Limitations: no limitations HENMT Head: Yes normal to inspection and Yes atraumatic Ears: hearing grossly normal bilaterally and external ears normal General nose exam: Normal external nose present, no nasal discharge noted and no epistaxis Face and sinus: Yes normal facial exam, No abrasion and No laceration Mouth: Normal oral and palatal mucosa present, no drooling and no muffled voice Eyes General: appearance normal, both eyes and all related structures Periorbital: periorbital findings normal Eyelids: Yes eyelids normal Conjunctivae: conjunctivae normal Pupils: Equal, round and reactive pupils present EOM: EOMs intact bilaterally Neck Neck: Yes normal visual inspection, Yes full ROM and Yes no lymphadenopathy Chest Chest palpation & inspection: normal inspection of the chest Resp Effort & Inspection: normal respiratory effort and able to speak in complete sentences GI Inspection: Yes normal to inspection General: Yes no CVA tenderness Back/Spine/Pelvis Back: no CVA tenderness Cervical Spine: normal cervical lordosis and cervical ROM normal Thoracic/Lumbar Spine: thoracic and lumbar spine normal to inspection and thoraco-lumbar ROM normal Neuro General: patient oriented x3 and moves all extremities Cranial nerves: Yes Equal, round and reactive pupils present Cognition (Neuro): normal cognition Motor exam (neuro): 5/5 motor strength present throughout Sensory Exam: Normal double simultaneous stimulation for sensation Coordination: [id number] test normal Extrem General: Yes normal to inspection, Yes full ROM and Yes capillary refill normal Psych Appearance: grossly normal Mental Status: mental status grossly normal Affect: normal affect Attitude: cooperative Thought process: Normal thought process present Thought content: Normal thought content present Insight: Good insight present (Psych) Medications Administered Discontinued Medications Generic Name Dose Route Start Last Admin Trade Name Freq PRN Reason Stop Dose Admin Cyclobenzaprine HCl 5 mg 12/26/22 14:53 12/26/22 15:00 Cyclobenzaprine Hcl 5 Mg Tablet PO 12/26/22 14:54 5 mg ONCE ONE Administration Ketorolac Tromethamine 15 mg 12/26/22 14:53 12/26/22 15:00 Ketorolac Tromethamine 15 Mg/Ml Vial IM 12/26/22 14:54 15 mg ONCE ONE Administration Prednisone 20 mg 12/26/22 14:53 12/26/22 15:00 Prednisone 20 Mg Tablet PO 12/26/22 14:54 20 mg ONCE ONE Administration Medical Decision Making Medical Decision Making MDM Narrative: Patient is a 37 year old assigned female at with a history of 3 herniated discs and DM presenting to the emergency department today with right neck and shoulder pain. Patient's physical exam was unremarkable. I explained my physical exam findings to the patient. I answered all questions asked by the patient. Patient received pain medication while in the department which she stated helped her pain significantly. I stressed the importance of the patient taking her medication as prescribed. I stressed the importance of the patient following up with her primary care provider and a pain specialist. I stressed the importance of the patient returning to the emergency department immediately if her symptoms were to worsen or if she were to develop any dizziness, shortness of breath, difficulty breathing, chest pain, blurry vision, loss of vision, nausea, vomiting, abdominal pain, fever, chills, back pain, or any other complaints. Patient verbalized agreement and understanding with this treatment plan and joelle dinh. Differential Diagnosis Differential Diagnoses: The differential diagnosis associated with the presentation includes Cervical radiculopathy Chronic pain Herniated discs Prescription Management I considered prescription management with: Pain Medication (patient prescribed pain medicaiton.) Discharge Plan Discharge Clinical Impression: Cervical radiculopathy Patient Disposition: Home, Self-Care Instructions: Cervical Radiculopathy (ED) Additional Instructions: Follow up with your primary care provider and a pain specialist. Return to the emergency department immediately if your symptoms worsen or if you develop any dizziness, shortness of breath, difficulty breathing, chest pain, blurry vision, loss of vision, nausea, vomiting, abdominal pain, fever, chills, back pain, or any other complaints. Benjy un seguimiento con mcqueen proveedor de atenci?n primaria y un especialista en dolor. Regrese al departamento de emergencias inmediatamente si ebony s?ntomas empeoran o si presenta mareos, dificultad para respirar, dificultad para respirar, dolor en el pecho, visi?n borrosa, p?rdida de la visi?n, n?useas, v?mitos, dolor abdominal, fiebre, escalofr?os, dolor de espalda o cualquier otras quejas. Prescriptions: New cyclobenzaprine 5 mg tablet 5 mg PO TID PRN (Reason: muscle spasm) 7 Days Qty: 21 0RF prednisone 20 mg tablet 20 mg PO DAILY 7 Days Qty: 7 0RF Discontinued cyclobenzaprine 5 mg tablet 5 mg PO BEDTIME PRN (Reason: muscle spasm) Qty: 3 0RF acetaminophen [Tylenol Extra Strength] 500 mg tablet 500 mg PO Q6H PRN (Reason: pain or fever) Qty: 20 0RF lidocaine [Lidoderm] 5 % adhesive patch,medicated 1 patch topical DAILY MDD remove after 12 hours PRN (Reason: pain) Qty: 30 0RF Rx Instructions: leave on most painful area for up to 12 hrs naproxen 500 mg tablet 500 mg PO BID PRN (Reason: pain) 10 Days Qty: 20 0RF cyclobenzaprine 5 mg tablet 5 mg PO Q8H PRN (Reason: pain (scale score 7-10)) 5 Days Qty: 14 0RF acetaminophen [Tylenol Extra Strength] 500 mg tablet 500 mg PO Q6H PRN (Reason: fever or pain) Qty: 14 0RF lidocaine [Lidoderm] 5 % adhesive patch,medicated 1 patch topical DAILY MDD remove after 12 hours PRN (Reason: pain) Qty: 30 0RF Rx Instructions: leave on most painful area for up to 12 hrs naproxen 500 mg tablet 500 mg PO BID PRN (Reason: pain) 10 Days Qty: 20 0RF cyclobenzaprine 5 mg tablet 5 mg PO Q8H PRN (Reason: pain (scale score 7-10)) 5 Days Qty: 14 0RF prednisone 20 mg tablet 20 mg PO BID Qty: 10 0RF prednisone 20 mg tablet 60 mg PO DAILY 5 Days Qty: 15 0RF prednisone 20 mg tablet 40 mg PO DAILY 5 Days Qty: 10 0RF cyclobenzaprine 5 mg tablet 5 mg PO Q8H PRN (Reason: pain (scale score 7-10)) 5 Days Qty: 14 0RF No Action oxycodone 5 mg capsule 5 mg PO Q8H PRN (Reason: pain) Qty: 12 0RF Rx Instructions: Partial Fill upon patient request. ketorolac 10 mg tablet 10 mg PO Q6H PRN (Reason: pain) 5 Days Qty: 20 0RF Rx Instructions: Patient received 30mg IM toradol in the ED. acetaminophen [Tylenol Extra Strength] 500 mg tablet 500 mg PO Q6H PRN (Reason: fever or pain) Qty: 14 0RF lidocaine [Lidoderm] 5 % adhesive patch,medicated 1 patch topical DAILY MDD remove after 12 hours PRN (Reason: pain) Qty: 30 0RF Rx Instructions: leave on most painful area for up to 12 hrs naproxen 500 mg tablet 500 mg PO BID PRN (Reason: pain) 10 Days Qty: 20 0RF amoxicillin-pot clavulanate [Augmentin] 875-125 mg tablet 1 tab PO Q12H 10 Days Qty: 20 0RF Referrals: [facility] [Primary Care Provider] - Phan Dillon MD [Physician] - (Call to establish and follow up with a pain specialist. Llame para establecer y realizar un seguimiento con un especialista en dolor.) Stand Alone Forms: Work/School Release Interventions: ED Discharge Assessment Last Done: 12/26/22 15:05 Discharge Date/Time: 12/26/22 15:05
[2022-12-26] MEDS: predniSONE 20 MG TABLET PO (15:00)
[2022-12-26] MEDS: Cyclobenzaprine HCl 5 MG TABLET PO (15:00)
[2022-12-26] MEDS: Ketorolac Tromethamine 15 MG/ML VIAL IM (15:00)
== END 2022-12-26 15:05 | disposition home or self-care (01) ==
PROVIDERS: Emergency Provider Emergency Medicine
DX: M54.12 Radiculopathy, cervical region (principal); E11.9 Type 2 diabetes mellitus without complications
CPT/HCPCS: 96372; 99283; 99284; J1885

== ENCOUNTER 2022-12-27 12:14 | Emergency (ER) | payer MEDICAID, SELFPAY ==
[2022-12-27 13:06] VITALS: BP 148/68; PULSE 88; RESP 18; TEMP 36.5; O2SAT 97; BMI 42.4
--- NOTE | 2022-12-27 13:16 | ED_ITS ---
HPI - General Adult General Chief complaint: General Medical Stated complaint: still having pain in r shoulder and back Time Seen by Provider: 12/27/22 13:22 Source: patient Mode of arrival: ambulatory Limitations: no limitations History of Present Illness HPI narrative: 37 yold female with chronic cervical radiculopathy and chronic right arm weakness for the past 3 years presents to the ED for pain meds for neck pain. du was seen the day before. patient states no new weakness. Patient is aware her spinal surgeon wants her to have surgery, but patient has refused. Neurologist has also informed patient she needs surgery. Patient denies any stroke lie symptoms or recent trauma. Related Data Previous Rx's Medication Instructions Recorded amoxicillin 875 mg-potassium 1 tab PO Q12H 10 days #20 tabs 03/11/21 clavulanate 125 mg tablet (Augmentin) oxycodone 5 mg capsule 5 mg PO Q8H PRN pain #12 caps 09/28/21 ketorolac 10 mg tablet 10 mg PO Q6H PRN pain 5 days #20 10/02/21 tabs acetaminophen 500 mg tablet 500 mg PO Q6H PRN fever or pain 12/27/21 (Tylenol Extra Strength) #14 tabs lidocaine 5 % topical patch 1 patch topical DAILY PRN pain #30 12/27/21 (Lidoderm) ea naproxen 500 mg tablet 500 mg PO BID PRN pain 10 days #20 12/27/21 tabs cyclobenzaprine 5 mg tablet 5 mg PO TID PRN muscle spasm 7 12/26/22 days #21 tabs prednisone 20 mg tablet 20 mg PO DAILY 7 days #7 tabs 12/26/22 ketorolac 10 mg tablet 10 mg PO QID PRN pain 5 days #20 12/27/22 tabs oxycodone 5 mg capsule 5 mg PO Q8H PRN pain 3 days #9 caps 12/27/22 Allergies Allergy/AdvReac Type Severity Reaction Status Date / Time albuterol [ALBUTEROL] Allergy Unknown DIFFICULTY Verified 12/27/22 13:06 BREATHING Albuterol AdvReac Unknown Difficulty Uncoded 08/21/22 13:06 Breathing Review of Systems Review of Systems: neck pain. chronic right upper extremity weakness Yes all other systems are reviewed and are negative PMFSH Social History Social History Alcohol intake: unknown Patient Tobacco Use Status: Tobacco use Unknown Advance Directives: No Advance Directives Information Provided: No Physical Exam ED Vital Signs: Vital Signs - 24 hr 12/27/22 13:06 Temperature 97.7 F Pulse Rate 88 Respiratory Rate 18 Blood Pressure 148/68 H Pulse Oximetry 97 Oxygen Delivery Method Room Air BMI result Body Mass Index 42.4 Const General: cooperative, healthy appearing, comfortable, no acute distress, well developed, alert and awake Orientation/consciousness: oriented to person, oriented to place, oriented to time and patient oriented x3 HENGA Head: Yes normal to inspection, Yes No palpable skull fracture present, Yes normocephalic and Yes atraumatic Ears: hearing grossly normal bilaterally, external ears normal, TM's normal bilaterally, TM normal on the right, TM normal on the left, EAC's normal, mastoids normal and no periauricular adenopathy Face and sinus: Yes normal facial exam, Yes sinuses nontender and Yes face symmetric Mouth: Normal oral and palatal mucosa present, lip normal, tongue normal and Normal salivary glands and ducts present Eyes General: appearance normal, both eyes and all related structures Neck Neck: Yes normal visual inspection, Yes full ROM, Yes no lymphadenopathy, Yes no meningeal signs, Yes trachea midline, Yes supple, No anterior neck swelling, No lymphadenopathy and Yes tender (posterior cervical tenderness) Chest Chest palpation & inspection: normal inspection of the chest and normal palpation of entire chest wall Resp Effort & Inspection: normal respiratory effort and able to speak in complete sentences Auscultation: clear to auscultation bilaterally Cardio Jugular venous distension: no JVD Heart sounds: S1 normal heart sound present and S2 normal heart sound present GI Inspection: Yes normal to inspection and No abdominal wall ecchymosis Palpation (GI): Soft to palpation, not firm, nontender, no guarding and not rigid General: Yes no CVA tenderness Back/Spine/Pelvis Back: no CVA tenderness and back tenderness Skin General skin exam: no rashes or lesions noted, elasticity normal, turgor normal and atrophy Neuro Other: chronic right arm weakness ( not new as per patient). General: oriented to person, oriented to place, oriented to time, patient oriented x3, gait normal, tone normal, moves all extremities, Normal light touch and pain sensation, no meningeal signs and no focal motor deficits Extrem General: Yes normal to inspection and Yes full ROM Psych Appearance: grossly normal, well kempt and not disheveled Course Course Course Narrative: RME: 37 yold female presents to the ED for exacerbation of cervical radiculolpathy with known chronic right arm weakness ( 3 years) due to severe cervial disc herniation. Medical Decision Making Medical Decision Making [facility] Narrative: RME: 37 yold female with cervical radiculopahty and crhonic right arm weakness due to disc herniations presents for evaluation. Was not discharged with pain meds yesterday, only steroids and muscle relaxer. NO new physical changes on exam. No need for new imaging. patient informed to follow up her SPinal Surgeon and NEurologist. patient informed to not take any other NSAIDS with toradol. Patient also informed not take oxycodone with lorezepam or muscle relaxer. Differential Diagnosis Differential Diagnoses: The differential diagnosis associated with the presentation includes (cervical radiculopathy. meningitis, neck sprain) External Record Review External record reviewed: Office record, Outpatient record, Primary care record and Other (prior ED visits) Tests considered The following testing was considered but not selected: imaging. Prescription Management I considered prescription management with: Pain Medication Discharge Plan Discharge Clinical Impression: Cervical radiculopathy Patient Disposition: Home, Self-Care Instructions: Cervical Radiculopathy (ED) Additional Instructions: Es necesario realizar un seguimiento con un cirujano especialista en columna recomendado. que se someta a kathleen cirug?a y tambi?n ser reevaluado por mcqueen neur?logo. Ser? enrique de kelsey con analg?sicos. Regrese al servicio de urgencias de inmediato si presenta par?lisis de las extremidades, debilidad que empeora, dolor de emerson intenso, dolor de rosmery, fiebre, escalofr?os, dificultad para hablar, ca?da facial, dolor en el pecho, dificultad para respirar o cualquier otro s?ntoma preocupante. No tome rosy?n otro FRANNY mientras est? tomando toradol. No tome goldy zodiazipinas elsie lorazepam mientras haylee oxicodona. No tome ciclobenzaprina junto con oxicodona. Prescriptions: New ketorolac 10 mg tablet 10 mg PO QID PRN (Reason: pain) 5 Days Qty: 20 0RF Rx Instructions: received 30mgIM toradol in the ED oxycodone 5 mg capsule 5 mg PO Q8H PRN (Reason: pain) 3 Days Qty: 9 0RF Rx Instructions: Partial Fill upon patient request. No Action oxycodone 5 mg capsule 5 mg PO Q8H PRN (Reason: pain) Qty: 12 0RF Rx Instructions: Partial Fill upon patient request. ketorolac 10 mg tablet 10 mg PO Q6H PRN (Reason: pain) 5 Days Qty: 20 0RF Rx Instructions: Patient received 30mg IM toradol in the ED. acetaminophen [Tylenol Extra Strength] 500 mg tablet 500 mg PO Q6H PRN (Reason: fever or pain) Qty: 14 0RF lidocaine [Lidoderm] 5 % adhesive patch,medicated 1 patch topical DAILY MDD remove after 12 hours PRN (Reason: pain) Qty: 30 0RF Rx Instructions: leave on most painful area for up to 12 hrs naproxen 500 mg tablet 500 mg PO BID PRN (Reason: pain) 10 Days Qty: 20 0RF amoxicillin-pot clavulanate [Augmentin] 875-125 mg tablet 1 tab PO Q12H 10 Days Qty: 20 0RF cyclobenzaprine 5 mg tablet 5 mg PO TID PRN (Reason: muscle spasm) 7 Days Qty: 21 0RF prednisone 20 mg tablet 20 mg PO DAILY 7 Days Qty: 7 0RF Stand Alone Forms: Work/School Release Interventions: ED Discharge Assessment Last Done: 12/27/22 13:57 Discharge Date/Time: 12/27/22 13:58 Print Language: Korean
== END 2022-12-27 13:58 | disposition home or self-care (01) ==
PROVIDERS: Emergency Provider Emergency Medicine Emergency Medical Services
DX: M54.12 Radiculopathy, cervical region (principal); R53.1 Weakness
CPT/HCPCS: 99282; 99283

== ENCOUNTER 2023-01-02 17:50 | Emergency (ER) | payer MEDICAID, SELFPAY ==
[2023-01-02 18:50] VITALS: BP 128/80; PULSE 96; RESP 16; TEMP 36.6; O2SAT 96; BMI 42.6
--- NOTE | 2023-01-02 21:42 | ED_ITS ---
HPI - Neck Pain/Injury General Chief Complaint: Extremity Problem Stated Complaint: right arm shoulder back pain Time Seen by Provider: 01/02/23 20:26 Source: patient Mode of arrival: ambulatory Limitations: language barrier (Syriac-speaking medical assistant secretary utilized) History of Present Illness HPI Narrative: Patient is a 37-year-old female who presents emergency department for persistent cervical spine pain predominantly to the right lateral aspect of the neck and radiating into her right shoulder. She has been seen in the emergency department twice over the past week with similar symptoms. She states that she has a known history of disc herniation from ?C4 through C7?. She has seen a spinal specialist and they recommended surgery but she is unsure whether she wants to proceed in this fashion. She reports that in the past ketorolac on steroids are typically helpful. She states that after her recent visits the oxycodone is the only medication that has been helpful and she has since ran out. She attempted to call her primary care doctor and they have yet to return her call and she is having persistent pain. Denies headache, dizziness, lightheadedness, chest pain, numbness or tingling of the extremities, weakness. Related Data Previous Rx's Medication Instructions Recorded amoxicillin 875 mg-potassium 1 tab PO Q12H 10 days #20 tabs 03/11/21 clavulanate 125 mg tablet (Augmentin) oxycodone 5 mg capsule 5 mg PO Q8H PRN pain #12 caps 09/28/21 ketorolac 10 mg tablet 10 mg PO Q6H PRN pain 5 days #20 10/02/21 tabs acetaminophen 500 mg tablet 500 mg PO Q6H PRN fever or pain 12/27/21 (Tylenol Extra Strength) #14 tabs lidocaine 5 % topical patch 1 patch topical DAILY PRN pain #30 12/27/21 (Lidoderm) ea naproxen 500 mg tablet 500 mg PO BID PRN pain 10 days #20 12/27/21 tabs cyclobenzaprine 5 mg tablet 5 mg PO TID PRN muscle spasm 7 12/26/22 days #21 tabs prednisone 20 mg tablet 20 mg PO DAILY 7 days #7 tabs 12/26/22 ketorolac 10 mg tablet 10 mg PO QID PRN pain 5 days #20 12/27/22 tabs oxycodone 5 mg capsule 5 mg PO Q8H PRN pain 3 days #9 caps 12/27/22 oxycodone 5 mg tablet 5 mg PO Q6H PRN pain #10 tabs 01/02/23 Allergies Allergy/AdvReac Type Severity Reaction Status Date / Time albuterol [ALBUTEROL] Allergy Unknown DIFFICULTY Verified 01/02/23 18:54 BREATHING Albuterol AdvReac Unknown Difficulty Uncoded 01/02/23 18:54 Breathing Review of Systems Review of Systems: Yes all other systems are reviewed and are negative [facility] Past Medical History Attestation statement: The following information was validated with the patient. Source: old records reviewed Social History Social History Alcohol intake: unknown Patient Tobacco Use Status: Tobacco use Unknown Advance Directives: No Advance Directives Information Provided: No Physical Exam Vital Signs: Vital Signs: Last Vital Signs Temp 97.9 F 01/02/23 18:50 Pulse 96 01/02/23 18:50 Resp 16 01/02/23 18:50 BP 128/80 01/02/23 18:50 Pulse Ox 96 01/02/23 18:50 O2 Del Method Room Air 01/02/23 18:50 BMI result Body Mass Index 42.6 Appearance: Alert.?Oriented to person, place and time. No acute distress.?Normal affect. Eyes: Pupils equal, round and reactive to light.? ENT: Pharynx normal.?? Neck: Normal inspection.? Neck supple. No midline cervical spine tenderness, step-offs, deformities. Palpable paraspinal muscle tenderness along the right and across the trapezius muscle. Full AROM. No lymphadenopathy.?? CVS: Heart sounds normal. Normal heart rate and rhythm.? Pulses normal.?? Respiratory: No respiratory distress.? Lung sounds clear to auscultation bilaterally?? Abdomen: Soft and non-tender. Normoactive bowel sounds. Skin: Skin warm and dry.? Normal skin color.? Extremities: Bilateral upper extremity strength 5/5. Neuro: Moves all extremities spontaneously. Sensation intact bilaterally. No focal neuro deficits. Ambulates with normal steady gait. Medical Decision Making Medical Decision Making MDM Narrative: Patient is a 37-year-old female presenting to emergency department for acute on chronic neck pain. Upon review of our records her last CT imaging was in January of 2021 she states within the past 6 months she had an MRI obtained at [facility]. I discussed with patient offering of CT scan today given pain has been persistently increased over the past week and she has had 2 recent visits. She declines additional imaging at this time. She has no focal neurological deficits and no new physical changes upon her examination compared to prior evaluation. No meningismus. Advised that it is going to most appropriate for her to follow-up with neurosurgery should she opt to and/or pain management but additionally with her primary care provider. I had an at length discussion with her about pain management at this time, I reviewed [facility], I am aware that she had a recent prescription for oxycodone, I did advise that I will give her a short additional course at this time but anything further really should come from a provider who was going to continue to manage her care as noted above. She verbalized understanding of this. Advised not to take oxycodone and Flexeril at the same time as she does still have this medication at home. We discussed worrisome signs and symptoms that would warrant re- evaluation in the emergency department. All questions answered. Differential Diagnosis Differential Diagnoses: The differential diagnosis associated with the presentation includes (Cervical radiculopathy, cervical disc herniation, chronic pain) External Record Review External record reviewed: Other ([facility]) Tests considered The following testing was considered but not selected: CT as noted above, see narrative for further detail Prescription Management I considered prescription management with: Pain Medication Discharge Plan Discharge Clinical Impression: Cervical radiculopathy Patient Disposition: Home, Self-Care Instructions: Cervical Radiculopathy (ED), Chronic Neck Pain (DC) Additional Instructions: As discussed, I have sent an additional prescription for oxycodone to your pharmacy. It is important not to take the oxycodone with the cyclobenzaprine that you have at home as these medications in combination can make you very drowsy. You should not drive, drink alcohol, or work while taking these medications. Further prescriptions should come from either your primary care provider and/or pain management/neurosurgeon. You may return back to emergency department any new or worsening symptoms or concerns. Please contact your provider to arrange for a follow-up visit as discussed. Prescriptions: New oxycodone 5 mg tablet 5 mg PO Q6H PRN (Reason: pain) Qty: 10 0RF Rx Instructions: Partial Fill upon patient request. No Action oxycodone 5 mg capsule 5 mg PO Q8H PRN (Reason: pain) Qty: 12 0RF Rx Instructions: Partial Fill upon patient request. ketorolac 10 mg tablet 10 mg PO Q6H PRN (Reason: pain) 5 Days Qty: 20 0RF Rx Instructions: Patient received 30mg IM toradol in the ED. acetaminophen [Tylenol Extra Strength] 500 mg tablet 500 mg PO Q6H PRN (Reason: fever or pain) Qty: 14 0RF lidocaine [Lidoderm] 5 % adhesive patch,medicated 1 patch topical DAILY MDD remove after 12 hours PRN (Reason: pain) Qty: 30 0RF Rx Instructions: leave on most painful area for up to 12 hrs naproxen 500 mg tablet 500 mg PO BID PRN (Reason: pain) 10 Days Qty: 20 0RF amoxicillin-pot clavulanate [Augmentin] 875-125 mg tablet 1 tab PO Q12H 10 Days Qty: 20 0RF ketorolac 10 mg tablet 10 mg PO QID PRN (Reason: pain) 5 Days Qty: 20 0RF Rx Instructions: received 30mgIM toradol in the ED oxycodone 5 mg capsule 5 mg PO Q8H PRN (Reason: pain) 3 Days Qty: 9 0RF Rx Instructions: Partial Fill upon patient request. cyclobenzaprine 5 mg tablet 5 mg PO TID PRN (Reason: muscle spasm) 7 Days Qty: 21 0RF prednisone 20 mg tablet 20 mg PO DAILY 7 Days Qty: 7 0RF Referrals: [facility] [Primary Care Provider] -
[2023-01-02] MEDS: oxyCODONE HCl Immed Release 5 MG TABLET PO (21:48)
== END 2023-01-02 22:10 | disposition home or self-care (01) ==
PROVIDERS: Emergency Provider Emergency Medicine
DX: M54.12 Radiculopathy, cervical region (principal)
CPT/HCPCS: 99283

== ENCOUNTER 2023-05-27 16:20 | Outpatient (REF) | payer MEDICAID, SELFPAY ==
[2023-05-28 12:46] LABS: BV Int Neg Control Negative (Negative); BV Int Pos Control Positive (Positive)
[2023-06-02 11:04] LABS: HPV mRNA E6/E7 rflx Not Detected (Not Detected)
== END 2023-05-27 16:21 | disposition home or self-care (01) ==
LOC: HO.HHCLNP 16:20
PROVIDERS: Visit Provider Advanced Practice Midwife
DX: Z12.4 Encounter for screening for malignant neoplasm of cervix (principal); Z11.51 Encounter for screening for human papillomavirus (HPV); N89.8 Other specified noninflammatory disorders of vagina
CPT/HCPCS: 87480; 87510; 87624; 87660; 88142

== ENCOUNTER 2023-07-13 15:26 | Emergency (ER) | payer MEDICAID, SELFPAY ==
[2023-07-13 16:20] VITALS: BP 150/76; PULSE 85; RESP 16; TEMP 36.4; O2SAT 99; BMI 38.0
--- NOTE | 2023-07-13 16:22 | ED.GENADULT ---
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 Describes as radiating down right arm. 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 Denies fall or other trauma. Has had multiple imaging modalities, saw real estate management specialist who recommended surgery which patient declined. She denies headaches, dizziness, lightheadedness, changes vision, numbness or tingling to right arm. Has been taking cyclobenzaprine and ibuprofen for her symptoms. She is not anticoagulated. MD complaint: neck pain Onset (ago): week(s) Location: neck Radiation: extremity Severity: severe and similar to prior episodes Quality: burning Pain Consistency: constant Relieving factors: none Exacerbating factors: movement Associated symptoms: denies other symptoms Treatments prior to arrival: NSAID and other Related Data Previous Rx's ?Medication ?Instructions ?Recorded amoxicillin 875 mg-potassium 1 tab PO Q12H 10 days #20 tabs 03/11/21 clavulanate 125 mg tablet (Augmentin) oxycodone 5 mg capsule 5 mg PO Q8H PRN pain #12 caps 09/28/21 ketorolac 10 mg tablet 10 mg PO Q6H PRN pain 5 days #20 10/02/21 tabs acetaminophen 500 mg tablet 500 mg PO Q6H PRN fever or pain 12/27/21 (Tylenol Extra Strength) #14 tabs lidocaine 5 % topical patch 1 patch topical DAILY PRN pain #30 12/27/21 (Lidoderm) ea naproxen 500 mg tablet 500 mg PO BID PRN pain 10 days #20 12/27/21 tabs cyclobenzaprine 5 mg tablet 5 mg PO TID PRN muscle spasm 7 12/26/22 days #21 tabs prednisone 20 mg tablet 20 mg PO DAILY 7 days #7 tabs 12/26/22 ketorolac 10 mg tablet 10 mg PO QID PRN pain 5 days #20 12/27/22 tabs oxycodone 5 mg capsule 5 mg PO Q8H PRN pain 3 days #9 caps 12/27/22 oxycodone 5 mg tablet 5 mg PO Q6H PRN pain #10 tabs 01/02/23 ketorolac 10 mg tablet 10 mg PO Q8H PRN pain #10 tabs 07/13/23 prednisone 20 mg tablet 40 mg (2 x 20 mg) PO DAILY #8 tabs 07/13/23 Allergies Allergy/AdvReac Type Severity Reaction Status Date / Time albuterol [ALBUTEROL] Allergy Unknown DIFFICULTY Verified 07/13/23 16:25 BREATHING Review of Systems Review of Systems: As per HPI. Yes all other systems are reviewed and are negative Constitutional: Constitutional: Reports as per HPI [facility] Social History Social History Alcohol intake: unknown Patient Tobacco Use Status: Tobacco use Unknown Smoked in Last 30 Days: Yes Use of substances other than those prescribed or required for medical reasons: No Advance Directives: No Advance Directives Information Provided: No Patient : No Physical Exam ED Vital Signs: Vital Signs - 24 hr 07/13/23 16:20 07/13/23 16:42 Temperature 97.6 F 97.1 F Pulse Rate 85 97 Respiratory Rate 16 18 Blood Pressure 150/76 H 146/77 H Pulse Oximetry 99 98 Oxygen Delivery Method Room Air Room Air BMI result Body Mass Index 38.0 Vital signs have been reviewed and appear to be correct. Blood pressure elevated. Heart rate normal. Respiratory rate normal. Temperature normal. Oxygen saturation normal. Const General: cooperative, healthy appearing and no acute distress Orientation/consciousness: oriented to person, oriented to place, oriented to time and patient oriented x3 Limitations: no limitations [facility] Head: Yes normocephalic and Yes atraumatic Ears: external ears normal General nose exam: Normal external nose present Face and sinus: Yes face symmetric Mouth: oropharynx normal and moist mucous membranes Throat: Yes uvula midline Eyes Pupils: Equal, round and reactive pupils present Neck Neck: Yes normal visual inspection, Yes no meningeal signs and Yes supple Resp Effort & Inspection: normal respiratory effort and able to speak in complete sentences Auscultation: clear to auscultation bilaterally Cardio Rate: regular rate Rhythm: regular rhythm Heart sounds: S1 normal heart sound present and S2 normal heart sound present GI Palpation (GI): Soft to palpation and nontender Auscultation: normoactive bowel sounds General: Yes no CVA tenderness Back/Spine/Pelvis Back: no CVA tenderness Cervical Spine: normal cervical lordosis, cervical ROM normal, cervical muscular tenderness (right) and No Cervical spine tenderness Thoracic/Lumbar Spine: thoracic and lumbar spine normal to inspection and thoraco-lumbar ROM normal Skin General skin exam: elasticity normal and turgor normal Neuro General: oriented to person, oriented to place, oriented to time, patient oriented x3, tone normal, moves all extremities, Normal light touch and pain sensation, no meningeal signs, no focal motor deficits, CN's II-XI intact bilaterally and deep tendon reflexes 2+ bilaterally Cranial nerves: Yes Equal, round and reactive pupils present Cognition (Neuro): normal cognition Motor exam (neuro): 5/5 motor strength present throughout Sensory Exam: Normal double simultaneous stimulation for sensation Extrem General: Yes normal to inspection, Yes full ROM, Yes capillary refill normal, Yes no pedal edema and Yes no calf tenderness Psych Mental Status: mental status grossly normal Affect: normal affect Thought process: Normal thought process present Course Course Course Narrative: This is an RME: Additional HPI, ROS, PE not included below will be deferred to primary provider. This is a 37-year-old female presenting to the emergency department for evaluation of acute on chronic neck pain and right-sided neck muscle spasm. Patient states that this has been ongoing for the last 3 weeks however per emergency room, she has been seen here many times for similar symptoms. I advised patient that I am happy to discharge her on medications she has previously been prescribed as she has no midline spine tenderness, vital signs stable, full range of motion however patient would like to be evaluated in the main emergency department for injection and further workup. Labs/ diagnostic imaging not indicated at this time. Plan: +/- toradol injection, further ER evaluation needed Medications Administered Discontinued Medications Generic Name Dose Route Start Last Admin Trade Name Freq PRN Reason Stop Dose Admin Ketorolac Tromethamine 30 mg 07/13/23 17:10 07/13/23 17:18 Ketorolac Tromethamine 30 Mg/Ml Vial IM 07/13/23 17:11 30 mg ONCE ONE Administration Prednisone 40 mg 07/13/23 17:10 07/13/23 17:17 Prednisone 20 Mg Tablet PO 07/13/23 17:11 40 mg ONCE ONE Administration Medical Decision Making Medical Decision Making [facility] Narrative: Patient is a 37-year-old Grenadian speaking female with history of DM, 3 cervical herniated discs, total hysterectomy presenting to the emergency department with complaint of right sided neck pain for the past 3 weeks. On exam patient is awake, A+Ox3, BP elevated likely secondary to pain, VS otherwise WNL, afebrile, normal neurological exam without focal deficits, physical exam findings as above. Given reported symptoms and physical exam findings, initial differential includes cervical radiculopathy, cervical muscular strain, cervical disc herniation, chronic pain. 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 Patient declined any additional imaging stating that she has had prior imaging and does not feel as though her symptoms have significantly changed. Patient is specifically requesting Toradol and prednisone. Discussed with patient that she can be medicated with these medications in the emergency department and discharged with prescriptions for these medications but that she can not take Toradol with any other NSAIDs. Patient verbalized understanding of this. Advised her to follow-up with her primary care provider and instructed her to she discussed pain management as she has been seen in this emergency department several times in the past for the same complaint. Return precautions discussed at bedside. Patient verbalized understanding of and agreement with plan. Differential Diagnosis Differential Diagnoses: The differential diagnosis associated with the presentation includes As per MDM. External Record Review External record reviewed: Inpatient record, Office record and Outpatient record Prescription Management I considered prescription management with: Pain Medication and Other Discharge Plan Discharge Clinical Impression: Cervical radiculopathy Patient Disposition: Home, Self-Care Instructions: Cervical Radiculopathy (ED), Chronic Neck Pain (DC) Additional Instructions: You were evaluated in the emergency department today for acute on chronic neck pain. Your pain improved in the emergency department with Toradol and prednisone. You are being prescribed a short course of Toradol. DO NOT TAKE NSAIDS (IBUPROFEN, NAPROXEN, ETC.) WITH THIS MEDICATION. You are also being prescribed a short course of prednisone. You can continue to cyclobenzaprine as well. Please follow-up with your primary care provider. Return to the emergency department with new weakness, numbness, tingling to your arm, increasing pain, fever or any other concerning symptoms. Prescriptions: New ketorolac 10 mg tablet 10 mg PO Q8H PRN (Reason: pain) Qty: 10 0RF Rx Instructions: maximum total duration of 5 days from all oral, intranasal, or parenteral formulations prednisone 20 mg tablet 40 mg PO DAILY Qty: 8 0RF No Action oxycodone 5 mg capsule 5 mg PO Q8H PRN (Reason: pain) Qty: 12 0RF Rx Instructions: Partial Fill upon patient request. ketorolac 10 mg tablet 10 mg PO Q6H PRN (Reason: pain) 5 Days Qty: 20 0RF Rx Instructions: Patient received 30mg IM toradol in the ED. acetaminophen [Tylenol Extra Strength] 500 mg tablet 500 mg PO Q6H PRN (Reason: fever or pain) Qty: 14 0RF lidocaine [Lidoderm] 5 % adhesive patch,medicated 1 patch topical DAILY MDD remove after 12 hours PRN (Reason: pain) Qty: 30 0RF Rx Instructions: leave on most painful area for up to 12 hrs naproxen 500 mg tablet 500 mg PO BID PRN (Reason: pain) 10 Days Qty: 20 0RF amoxicillin-pot clavulanate [Augmentin] 875-125 mg tablet 1 tab PO Q12H 10 Days Qty: 20 0RF ketorolac 10 mg tablet 10 mg PO QID PRN (Reason: pain) 5 Days Qty: 20 0RF Rx Instructions: received 30mgIM toradol in the ED oxycodone 5 mg capsule 5 mg PO Q8H PRN (Reason: pain) 3 Days Qty: 9 0RF Rx Instructions: Partial Fill upon patient request. oxycodone 5 mg tablet 5 mg PO Q6H PRN (Reason: pain) Qty: 10 0RF Rx Instructions: Partial Fill upon patient request. cyclobenzaprine 5 mg tablet 5 mg PO TID PRN (Reason: muscle spasm) 7 Days Qty: 21 0RF prednisone 20 mg tablet 20 mg PO DAILY 7 Days Qty: 7 0RF Print Language: Grenadian
[2023-07-13 16:42] VITALS: BP 146/77; PULSE 97; RESP 18; TEMP 36.2; O2SAT 98
[2023-07-13] MEDS: predniSONE 20 MG TABLET 40 MG PO (17:17)
[2023-07-13] MEDS: Ketorolac Tromethamine 30 MG/ML VIAL IM (17:18)
[2023-07-13 18:16] VITALS: BP 126/83; PULSE 83; RESP 19; TEMP 36.6; O2SAT 100
== END 2023-07-13 18:17 | disposition home or self-care (01) ==
PROVIDERS: Emergency Provider Emergency Medicine
DX: M54.12 Radiculopathy, cervical region (principal); M54.2 Cervicalgia; M54.50 Low back pain, unspecified; Z79.899 Other long term (current) drug therapy
CPT/HCPCS: 96372; 99284; J1885

== ENCOUNTER 2023-07-18 16:23 | Emergency (ER) | payer OTHER, MEDICAID, SELFPAY ==
[2023-07-18 16:48] VITALS: BP 146/83; PULSE 103; RESP 18; TEMP 36.6; O2SAT 98; BMI 41.3
--- NOTE | 2023-07-18 16:48 | ED.GENADULT ---
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 She has a feeling of numbness and tingling in her fingertips but there is no weakness in her senior c developer strength is normal, she has no changes to bowel or bladder There is no headache no dizziness no confusion no fevers Related Data Previous Rx's ?Medication ?Instructions ?Recorded amoxicillin 875 mg-potassium 1 tab PO Q12H 10 days #20 tabs 03/11/21 clavulanate 125 mg tablet (Augmentin) oxycodone 5 mg capsule 5 mg PO Q8H PRN pain #12 caps 09/28/21 ketorolac 10 mg tablet 10 mg PO Q6H PRN pain 5 days #20 10/02/21 tabs acetaminophen 500 mg tablet 500 mg PO Q6H PRN fever or pain 12/27/21 (Tylenol Extra Strength) #14 tabs lidocaine 5 % topical patch 1 patch topical DAILY PRN pain #30 12/27/21 (Lidoderm) ea naproxen 500 mg tablet 500 mg PO BID PRN pain 10 days #20 12/27/21 tabs cyclobenzaprine 5 mg tablet 5 mg PO TID PRN muscle spasm 7 12/26/22 days #21 tabs prednisone 20 mg tablet 20 mg PO DAILY 7 days #7 tabs 12/26/22 ketorolac 10 mg tablet 10 mg PO QID PRN pain 5 days #20 12/27/22 tabs oxycodone 5 mg capsule 5 mg PO Q8H PRN pain 3 days #9 caps 12/27/22 oxycodone 5 mg tablet 5 mg PO Q6H PRN pain #10 tabs 01/02/23 ketorolac 10 mg tablet 10 mg PO Q8H PRN pain #10 tabs 07/13/23 prednisone 20 mg tablet 40 mg (2 x 20 mg) PO DAILY #8 tabs 07/13/23 acetaminophen 500 mg tablet 1,000 mg (2 x 500 mg) PO QID PRN 07/18/23 pain #30 tabs diazepam 5 mg tablet (Valium) 5 mg PO BID PRN muscle spasm #10 07/18/23 tabs oxycodone 5 mg tablet 5 mg PO Q6H PRN pain #20 tabs 07/18/23 Allergies Allergy/AdvReac Type Severity Reaction Status Date / Time albuterol [ALBUTEROL] Allergy Unknown DIFFICULTY Verified 07/18/23 16:50 BREATHING [facility] Past Medical History Source: nursing notes reviewed Social History Social History Alcohol intake: unknown Patient Tobacco Use Status: Tobacco use Unknown Advance Directives: No Advance Directives Information Provided: No Physical Exam ED Vital Signs: Vital Signs - 24 hr 07/18/23 16:48 Temperature 98 F Pulse Rate 103 H Respiratory Rate 18 Blood Pressure 146/83 H Pulse Oximetry 98 Oxygen Delivery Method Room Air BMI result Body Mass Index 41.3 general appearance is no distress Head is normocephalic atraumatic The neck is tilted to the right side there is lots of tenderness around the right lateral neck, there is no focal tenderness over the vertebrae there is no redness no rash no skin changes The chest is clear to auscultation no tenderness chest wall The abdomen soft nontender The back no significant tenderness outside of the neck area Extremities is full range of motion x4 Neuro senior c developer strength is 5/5 and symmetrical in both hands, sensation is intact and symmetrical in both hands, she ambulates easily lower extremity strength is 5/5 and symmetrical with normal sensation Course Course Course Narrative: This is an RME: Additional HPI, ROS, PE not included below will be deferred to primary provider. 37 yo f presents with right sided neck pain with radiation to shoulder with intermittent radiation down right arm for 3 weeks. Told she has disc issues and spasms. Awaiting referral. Has been to clinic a few times. Denies chest pain. 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 work No other neurologic deficit no changes to bowel or bladder She responded very well to analgesics and muscle relaxer and was much more comfortable and was discharged improved and will follow with work connection and her doctor Medications Administered Discontinued Medications Generic Name Dose Route Start Last Admin Trade Name Freq PRN Reason Stop Dose Admin Acetaminophen 975 mg 07/18/23 18:20 07/18/23 18:32 Acetaminophen 325 Mg Tablet PO 07/18/23 18:21 975 mg ONCE ONE Administration Diazepam 5 mg 07/18/23 18:19 07/18/23 18:33 Diazepam 5 Mg Tablet PO 07/18/23 18:20 5 mg ONCE ONE Administration Ketorolac Tromethamine 30 mg 07/18/23 18:19 07/18/23 18:33 Ketorolac Tromethamine 30 Mg/Ml Vial IM 07/18/23 18:20 30 mg ONCE ONE Administration Oxycodone HCl 10 mg 07/18/23 18:19 07/18/23 18:32 Oxycodone Hcl Immed Release 5 Mg Tablet PO 07/18/23 18:20 10 mg ONCE ONE Administration Discharge Plan Discharge Clinical Impression: Cervical radiculopathy Patient Disposition: Home, Self-Care Additional Instructions: follow with your doctor or work connection for your neck pain and work-related injury Oxycodone and Valium are sedating medications so you should not drive for 6 hours after taking these medications Return any time for weakness any worse condition or any concerns Prescriptions: New diazepam [Valium] 5 mg tablet 5 mg PO BID PRN (Reason: muscle spasm) Qty: 10 0RF oxycodone 5 mg tablet 5 mg PO Q6H PRN (Reason: pain) Qty: 20 0RF Rx Instructions: Partial Fill upon patient request. acetaminophen 500 mg tablet 1,000 mg PO QID PRN (Reason: pain) Qty: 30 0RF No Action oxycodone 5 mg capsule 5 mg PO Q8H PRN (Reason: pain) Qty: 12 0RF Rx Instructions: Partial Fill upon patient request. ketorolac 10 mg tablet 10 mg PO Q6H PRN (Reason: pain) 5 Days Qty: 20 0RF Rx Instructions: Patient received 30mg IM toradol in the ED. acetaminophen [Tylenol Extra Strength] 500 mg tablet 500 mg PO Q6H PRN (Reason: fever or pain) Qty: 14 0RF lidocaine [Lidoderm] 5 % adhesive patch,medicated 1 patch topical DAILY MDD remove after 12 hours PRN (Reason: pain) Qty: 30 0RF Rx Instructions: leave on most painful area for up to 12 hrs naproxen 500 mg tablet 500 mg PO BID PRN (Reason: pain) 10 Days Qty: 20 0RF amoxicillin-pot clavulanate [Augmentin] 875-125 mg tablet 1 tab PO Q12H 10 Days Qty: 20 0RF ketorolac 10 mg tablet 10 mg PO QID PRN (Reason: pain) 5 Days Qty: 20 0RF Rx Instructions: received 30mgIM toradol in the ED oxycodone 5 mg capsule 5 mg PO Q8H PRN (Reason: pain) 3 Days Qty: 9 0RF Rx Instructions: Partial Fill upon patient request. oxycodone 5 mg tablet 5 mg PO Q6H PRN (Reason: pain) Qty: 10 0RF Rx Instructions: Partial Fill upon patient request. ketorolac 10 mg tablet 10 mg PO Q8H PRN (Reason: pain) Qty: 10 0RF Rx Instructions: maximum total duration of 5 days from all oral, intranasal, or parenteral formulations prednisone 20 mg tablet 40 mg PO DAILY Qty: 8 0RF cyclobenzaprine 5 mg tablet 5 mg PO TID PRN (Reason: muscle spasm) 7 Days Qty: 21 0RF prednisone 20 mg tablet 20 mg PO DAILY 7 Days Qty: 7 0RF Referrals: [facility] [Provider Group] Print Language: Wolof
[2023-07-18] MEDS: Acetaminophen 325 MG TABLET 975 MG PO (18:32)
[2023-07-18] MEDS: oxyCODONE HCl Immed Release 5 MG TABLET 10 MG PO (18:32)
[2023-07-18] MEDS: Ketorolac Tromethamine 30 MG/ML VIAL IM (18:33)
[2023-07-18] MEDS: diazePAM 5 MG TABLET PO (18:33)
--- NOTE | 2023-07-18 19:12 | PC.NURSE ---
d/c per provider prior to vitals re-assessment
== END 2023-07-18 19:12 | disposition home or self-care (01) ==
PROVIDERS: Emergency Provider Emergency Medicine
DX: M54.12 Radiculopathy, cervical region (principal)
CPT/HCPCS: 96372; 99282; 99284; J1885

== ENCOUNTER 2023-08-04 11:38 | Emergency (ER) | payer MEDICAID, SELFPAY ==
--- NOTE | ~2023-08-04 | CT_ITS ---
EXAMINATION: CT CERVICAL SPINE WITHOUT CONTRAST CLINICAL INFORMATION: Atraumatic right neck pain COMPARISON: CT cervical spine 02/04/2021. TECHNIQUE: Axial CT through the cervical spine was obtained without intravenous contrast. Coronal and sagittal reformats were created on a dedicated technologist workstation for interpretation. This CT examination was performed using dose optimization techniques as appropriate, variously including the following: *Automated exposure control *Adjustment of mA and/or kV according to patient size (this includes techniques or standardized protocols for targeted exams where dose is matched to indication/reason for exam; i.e. extremities or head) *Use of iterative reconstruction technique DLP: 631 mGy-cm FINDINGS: No evidence of acute fracture. Vertebral body heights intact. Unchanged reversal of usual cervical lordosis. Alignment otherwise preserved. Unchanged moderate disc osteophyte complexes at C5-C6 and C6-C7, with mild space height loss at those levels, and ossification of the posterior longitudinal ligament at those levels result in at least moderate osseous spinal canal narrowing, unchanged. No prevertebral soft tissue swelling identified. Visualized neck soft tissues unremarkable. Thyroid gland unremarkable. Visualized lung apices are unremarkable. Visualized intracranial contents grossly preserved. CT/CT cervical spine wo IV con IMPRESSION: 1. No acute fracture or traumatic malalignment cervical spine. 2. Unchanged mild multilevel degenerative cervical spondylosis, most pronounced at C5-C6 and C6-C7 where there is likely moderate osseous spinal canal narrowing secondary to ossification of the posterior longitudinal ligament. Fleischner guidelines were followed.
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
[2023-08-04 11:43] VITALS: BP 149/80; PULSE 110; RESP 18; TEMP 36.6; O2SAT 96; BMI 43.3
[2023-08-04] MEDS: Ketorolac Tromethamine 30 MG/ML VIAL IM (13:19)
[2023-08-04] MEDS: Lidocaine 4 % Patch ADH..PATCH 1 PATCH TRANSDERMA (13:20)
[2023-08-04] MEDS: diazePAM 5 MG TABLET PO (13:20)
[2023-08-04 15:28] VITALS: BP 146/71; PULSE 100; RESP 16; TEMP 36.9; O2SAT 97
[2023-08-04] MEDS: oxyCODONE HCl Immed Release 5 MG TABLET PO (16:18)
[2023-08-04 16:26] VITALS: BP 146/71; PULSE 100; RESP 16; TEMP 36.9; O2SAT 97
== END 2023-08-04 16:26 | disposition home or self-care (01) ==
PROVIDERS: Emergency Provider Emergency Medicine
DX: M47.22 Other spondylosis with radiculopathy, cervical region (principal); E11.9 Type 2 diabetes mellitus without complications
CPT/HCPCS: 72125; 96372; 99283; 99284; J1885

== ENCOUNTER 2023-10-29 10:34 | Outpatient (REF) | payer MEDICAID, SELFPAY ==
[2023-10-29 11:27] LABS: MANUAL DIFF FLAG NO
[2023-10-29 11:55] LABS: Basophils Absolute Auto 0.1 X10*3/uL (0.0-0.2); Basophils Percent Auto 0.8 % (0-2); Eosinophils Absolute Auto 0.2 X10*3/uL (0.0-0.4); Eosinophils Percent Auto 2.4 % (0-4); Hematocrit 34.4 % (37.0-47.0); Imm Gran Abs Auto 0.03 X10*3/uL (0.00-0.03); Imm Gran Pct Auto 0.4 % (0.0-0.4); Lymphocytes Absolute Auto 1.8 X10*3/uL (1.2-4.9); Lymphocytes Percent Auto 23.2 % (20-40); Mean Corpuscular HGB Conc 29.1 g/dl (31.0-35.0); Mean Corpuscular Hemoglobin 20.6 pg (27.0-33.0); Mean Corpuscular Volume 70.8 fL (80.0-98.0); Mean Platelet Volume 11.2 fL (9.4-12.3); Monocytes Absolute Auto 0.3 X10*3/uL (0.1-1.2); Monocytes Percent Auto 4.2 % (2-11); Neutrophils Absolute Auto 5.4 x10*3/uL (2.0-8.3); Platelet Count 235 X10*3/uL (160-400); Red Blood Count 4.86 X10*6/uL (4.20-5.50); White Blood Count 7.8 X10*3/uL (4.8-10.8)
[2023-10-29 11:56] LABS: Alanine Aminotransferase 21 U/L (0-31); Albumin Level 3.8 g/dL (3.5-5.0); Alkaline Phosphatase 70 U/L (39-117); Anion Gap 13 (12-20); Aspartate Amino Transferase 18 U/L (5-31); Bilirubin Total 0.2 mg/dL (0.0-1.0); Blood Urea Nitrogen 7 mg/dL (9-16); Calcium 9.3 mg/dL (8.4-10.2); Carbon Dioxide 26 mmol/L (22-29); Chloride 103 mmol/L (96-108); Cholesterol 180 mg/dL (<200); Estimated Glomerular Filt Rate > 60; Glucose Random 182 mg/dL (60-115); HDL Cholesterol 33 mg/dL (>40); LDL Cholesterol Calculated 89 mg/dL (<100); Potassium 3.9 mmol/L (3.3-5.1); Sodium 138 mmol/L (135-145); Total Protein 7.4 g/dL (6.5-8.0); Triglycerides 293 mg/dL (<150)
[2023-10-29 12:16] LABS: Creatinine Urine 233.86 mg/dL
[2023-10-29 12:33] LABS: Microalbum/Creatinine Ratio Ur 246.3 ug/mg cr (<30)
[2023-11-01 07:23] LABS: TSpotTB Invalid (Negative)
== END 2023-10-29 10:35 | disposition home or self-care (01) ==
LOC: HO.HHCL 10:34
PROVIDERS: Visit Provider Internal Medicine Geriatric Medicine
DX: E11.65 Type 2 diabetes mellitus with hyperglycemia (principal); Z79.4 Long term (current) use of insulin; Z11.1 Encounter for screening for respiratory tuberculosis
CPT/HCPCS: 36415; 80053; 80061; 82043; 82570; 85025; 86481

== ENCOUNTER 2023-11-18 14:15 | Outpatient (REF) | payer MEDICAID, SELFPAY ==
[2023-11-18 16:27] LABS: Iron 17 mcg/dL (30-160); Percent Iron Saturation 5 % (15-50); Total Iron Binding Capacity 361 mcg/dL (228-428); Unsaturated Iron Binding 344 ug/dL
[2023-11-18 16:38] LABS: Ferritin 8 ng/mL (10-122)
== END 2023-11-18 14:16 | disposition home or self-care (01) ==
LOC: HO.HHCL 14:15
PROVIDERS: Visit Provider Internal Medicine Geriatric Medicine
DX: D50.9 Iron deficiency anemia, unspecified (principal)
CPT/HCPCS: 36415; 82728; 83540

== ENCOUNTER 2024-03-05 10:49 | Outpatient (REF) | payer MEDICAID, SELFPAY ==
[2024-03-05 11:19] LABS: MANUAL DIFF FLAG NO
[2024-03-05 11:40] LABS: Basophils Absolute Auto 0.1 X10*3/uL (0.0-0.2); Basophils Percent Auto 0.7 % (0-2); Eosinophils Absolute Auto 0.4 X10*3/uL (0.0-0.4); Eosinophils Percent Auto 3.8 % (0-4); Hematocrit 36.5 % (37.0-47.0); Hemoglobin 10.6 g/dl (12.0-16.0); Imm Gran Abs Auto 0.05 X10*3/uL (0.00-0.03); Imm Gran Pct Auto 0.4 % (0.0-0.4); Mean Corpuscular Hemoglobin 20.3 pg (27.0-33.0); Mean Corpuscular Volume 70.1 fL (80.0-98.0); Mean Platelet Volume 10.4 fL (9.4-12.3); Monocytes Absolute Auto 0.4 X10*3/uL (0.1-1.2); Monocytes Percent Auto 3.6 % (2-11); Neutrophils Absolute Auto 8.2 x10*3/uL (2.0-8.3); Neutrophils Percent Auto 73.5 % (45-73); Platelet Count 329 X10*3/uL (160-400); Red Blood Count 5.21 X10*6/uL (4.20-5.50); Red Cell Distribution Width 17.2 % (11.0-16.0); White Blood Count 11.2 X10*3/uL (4.8-10.8)
[2024-03-05 12:28] LABS: Iron 24 mcg/dL (30-160); Percent Iron Saturation 6 % (15-50); Total Iron Binding Capacity 407 mcg/dL (228-428); Unsaturated Iron Binding 383 ug/dL
[2024-03-05 12:48] LABS: Ferritin 10 ng/mL (10-122)
== END 2024-03-05 10:50 | disposition home or self-care (01) ==
LOC: HO.HHCL 10:49
PROVIDERS: Visit Provider Internal Medicine Geriatric Medicine
DX: D50.9 Iron deficiency anemia, unspecified (principal)
CPT/HCPCS: 36415; 82728; 83540; 85025

== ENCOUNTER 2024-06-24 11:15 | Outpatient (REF) | payer MEDICAID, SELFPAY ==
[2024-06-24 18:26] LABS: Bacterial Vaginosis PCR NEGATIVE (Negative); Candida Group PCR DETECTED (Not Detect); Candida glab krusei PCR NOT DETECTED (Not Detect); Trichomonas vaginalis PCR NOT DETECTED (Not Detect)
== END 2024-06-24 11:16 | disposition home or self-care (01) ==
LOC: HO.LNP 11:15
DX: N89.8 Other specified noninflammatory disorders of vagina (principal)
CPT/HCPCS: 81515

== ENCOUNTER 2024-09-04 10:03 | Outpatient (REF) | payer MEDICAID, SELFPAY ==
--- OUTSIDE RECORDS SUMMARY | 2024-09-04 10:46 | XMS_ITS | Encounter Summary ---
Author Organization [employer] Address [address] [facility] 7t [place] [address] Care Team Providers Care Tennis Ball Cover Cementer Name Role Phone Name, Alex NAJERA Primary Care Provider [phone] Brenda Gavin Unavailable Arin Contreras RN Unavailable [phone] Lakia Herrmann PharmD Unavailable [phone] Reason for Visit * Reason Onset Date Comments Letter for School/Work 11/15/2023 Encounter Details Date Type Department Care Team ([facility] st Contact Info) Description 11/15/2023 Telephone [facility] [address] [place] [address] Name, MD Alex [address] [place], [place] [phone] Letter for School/Work Social History Tobacco Use Types Packs/Day Years Used Date Smoking Tobacco: Every Day Cigarettes Smokeless Tobacco: Never Alcohol Use Standard Drinks/Week Comments Not Currently 0 (1 standard drink = 0.6 oz pur e alcohol) Alcohol Answer Date Recorded Frequency of Alcohol Consumption Not on file 11/06/2023 Average Number of Drinks Not on file 024 Frequency of Binge Drinking Not on file 09/2023 Score 0 11/06/2023 Depression Answer Date Recorded Patient Health Questionnaire-9 Score 13 08/19/2023 Patient Health Questionnaire-9 Score 13 08/19/2023 Last PHQ-9: Questionnaire Data Not on file 0 08/19/2023 Housing Stability Answer Date Recorded What is your housing situation today? I have gerald cunningham 08/16/[address] you li ve. Do you have problems with any of the following? Pests such as bugs, ants, or mice 08/16/2023 Food Insecurity Answer Date Recorded Within the past 12 months, y ou worried that your food would run out before you got money to buy more: Often true 08/16/2023 Within the past 12 months,th e food you bought just didn't last and you didn't have enough money to get more: Often true Transportation Answer Date Recorded In the past 12 months, has l ack of transportation kept you from medical appts, meetings, work or from getting things needed for daily living? No 01/14/2023 Utilities Answer Date Recorded In the past 12 months, has t he electric, gas, oil or water company threatened to shut off services in your home? No 08/16/2023 Depression Answer Date Recorded Patient Health Questionnaire-2 Score 4 08/19/2023 Comments No Sex and Gender Information Value Date Recorded Sex Assigned at Female 01/29/2022 10:34 AM EDT Legal Sex Female 10:34 AM EDT Gender Identity Female 01/29/2022 10:34 AM EDT Sexual Orientation Choose not to disclose 2021 10:34 AM EDT documented as of this encounter Miscellaneous Notes * Telephone Encounter - Vandana Cantor RN - 11/15/2023 1:22 PM EDT T?C to pt. To inform that letter is ready to moss picker. Pt. States she is going to pick it up. * Telephone Encounter - Vandana Cantor RN - 11/15/2023 11:17 AM EDT Alison review and advise for below request. Pt. Was seen on 11/06/2023. Pt. Discussed letter for work excuse but RN cannot see it was discussed for 2 month. * Telephone Encounter - Willy Thompson - 11/15/2023 10:55 AM EDT Tc from pt requesting status on letter for work excusing her for 2 months of job, pt states PCP wasgoing to do it on last appt, pt also states needs letter for today. documented in this encounter Plan of Treatment Upcoming Encounters Date Type Department Care Team (Late st Contact Info) Description 09/07/2024 11:00 AM EDT Office Visit [facility] [address] [place] [address] Kayden Lewis 10/05/2024 11:00 AM EDT Medication Management [facility] [address] [place] [address] Lakia Herrmann PharmD [address] [place] [address] documented as of this encounter Visit Diagnoses Not on filedocumented in this encounter Additional Health Concerns Assessment Noted Time PHQ-9 Depression Total Score: 13 024 1:11 PM EDT documented as of this encounter Care Teams Tennis Ball Cover Cementer Relationship Specialty Start Date End Date Name, MD Alex [address] [place] [address] PCP - General Internal Medicine 07/16/23 Brenda Gavin Community Health Worker 08/21/23 Arin Contreras, CLAYTON [address] [place] [address] Cross Enterprise Integrator 08/21/23 Lakia Herrmann PharmD [address] [place] [address] Pharmacist Internal Medicine 12/13/23 documented as of this encounter
[2024-09-04 11:04] LABS: MANUAL DIFF FLAG NO
[2024-09-04 11:25] LABS: Basophils Absolute Auto 0.1 X10*3/uL (0.0-0.2); Basophils Percent Auto 0.8 % (0-2); Eosinophils Absolute Auto 0.3 X10*3/uL (0.0-0.4); Eosinophils Percent Auto 2.6 % (0-4); Hematocrit 35.2 % (37.0-47.0); Hemoglobin 10.3 g/dl (12.0-16.0); Lymphocytes Absolute Auto 1.9 X10*3/uL (1.2-4.9); Lymphocytes Percent Auto 19.5 % (20-40); Mean Corpuscular HGB Conc 29.3 g/dl (31.0-35.0); Mean Corpuscular Hemoglobin 20.1 pg (27.0-33.0); Mean Corpuscular Volume 68.6 fL (80.0-98.0); Mean Platelet Volume 10.2 fL (9.4-12.3); Monocytes Absolute Auto 0.4 X10*3/uL (0.1-1.2); Monocytes Percent Auto 4.3 % (2-11); Neutrophils Absolute Auto 6.8 x10*3/uL (2.0-8.3); Neutrophils Percent Auto 71.8 % (45-73); Platelet Count 276 X10*3/uL (160-400); Red Blood Count 5.13 X10*6/uL (4.20-5.50); Red Cell Distribution Width 18.1 % (11.0-16.0); White Blood Count 9.5 X10*3/uL (4.8-10.8)
[2024-09-04 12:19] LABS: Creatinine Urine 316.74 mg/dL; Microalbum/Creatinine Ratio Ur 5.3 ug/mg cr (<30)
[2024-09-04 12:35] LABS: Alanine Aminotransferase 14 U/L (0-31); Alkaline Phosphatase 75 U/L (39-117); Anion Gap 9 (12-20); Aspartate Amino Transferase 20 U/L (5-31); Bilirubin Direct 0.1 mg/dL (0.0-0.5); Bilirubin Total 0.3 mg/dL (0.0-1.0); Blood Urea Nitrogen 13 mg/dL (9-16); Calcium 9.3 mg/dL (8.4-10.2); Carbon Dioxide 25 mmol/L (22-29); Chloride 108 mmol/L (96-108); Cholesterol 131 mg/dL (<200); Estimated Glomerular Filt Rate > 60; Glucose Random 129 mg/dL (60-115); HDL Cholesterol 27 mg/dL (>40); LDL Cholesterol Calculated 80 mg/dL (<100); Potassium 4.2 mmol/L (3.3-5.1); Sodium 138 mmol/L (135-145); Total Protein 7.6 g/dL (6.5-8.0); Triglycerides 124 mg/dL (<150)
== END 2024-09-04 10:04 | disposition home or self-care (01) ==
LOC: HO.HHCL 10:03
PROVIDERS: Visit Provider Internal Medicine Geriatric Medicine
DX: E11.65 Type 2 diabetes mellitus with hyperglycemia (principal); Z79.4 Long term (current) use of insulin; E78.2 Mixed hyperlipidemia; K52.1 Toxic gastroenteritis and colitis; R14.0 Abdominal distension (gaseous); N92.0 Excessive and frequent menstruation with regular cycle
CPT/HCPCS: 36415; 80053; 80061; 82043; 82248; 82570; 85025

== ENCOUNTER 2025-02-23 11:51 | Outpatient (REF) | payer MEDICAID, SELFPAY ==
--- OUTSIDE RECORDS SUMMARY | 2025-02-23 11:00 | XMS_ITS | Encounter Summary ---
Author Organization [employer] Address [address] [facility] 7t [place] [address] Care Team Providers Care Shop Router Name Role Phone Name, Alex NAJERA Primary Care Provider [phone] Brenda Gavin Unavailable Arin Contreras RN Unavailable Unavailable Lakia Herrmann PharmD Unavailable [phone] Reason for Visit * Reason Comments Alopecia Encounter Details Date Type Department Care Team (Late st Contact Info) Description 02/23/2025 11:00 AM EST Office Visit [facility] [address] [place] [phone] Hair loss (Primary Dx); Arthralgia, unspecified joint; Microcytic anemia Social History Tobacco Use Types Packs/Day Years Used Date Smoking Tobacco: Every Day Cigarettes 1 13.4 Started: 10/06/2011 Passive Smoke Exposure: Current Smokeless Tobacco: Never Alcohol Use Standard Drinks/Week Comments Not Currently 0 (1 standard drink = 0.6 oz pur e alcohol) Alcohol Answer Date Recorded Frequency of Alcohol Consumption Not on file 11/06/2023 Average Number of Drinks Not on file 024 Frequency of Binge Drinking Not on file 09/2023 Score 0 11/06/2023 Depression Answer Date Recorded Patient Health Questionnaire-9 Score 16 11/11/2024 Patient Health Questionnaire-9 Score 16 11/11/2024 Last PHQ-9: Questionnaire Data Not on file 0 11/11/2024 Housing Stability Answer Date Recorded What is your housing situation today? I have housing today, but I am worried about losing housing in the future 06/24/[address] you li ve. Do you have problems with any of the following? Pests such as bugs, ants, or mice 06/24/2024 Food Insecurity Answer Date Recorded Within the past 12 months, y ou worried that your food would run out before you got money to buy more: Sometimes True 2024 Within the past 12 months,th e food you bought just didn't last and you didn't have enough money to get more: Sometimes True 06/24/2024 Transportation Answer Date Recorded In the past [...] Date Recorded Patient Health Questionnaire-2 Score 4 11/11/2024 Internet Access Answer Date Recorded Internet Access Q1 Yes 06/15/2024 Internet Access Q2 Not on file 06/15/2024 Comments No Sex and Gender Information Value Date Recorded Sex Assigned at Female 01/29/2022 10:34 AM EDT Legal Sex Female 10:34 AM EDT Gender Identity Female 01/29/2022 10:34 AM EDT Sexual Orientation Choose not to disclose 2021 10:34 AM EDT documented as of this encounter Last Filed Vital Signs Vital Sign Reading Time Taken Comments Blood Pressure 129/78 02/23/2025 10:58 AM EST Pulse 75 02/23/2025 10:58 AM EST Temperature 36 C (96.8 F) 02/23/2025 10:58 AM EST Respiratory Rate 20 02/23/2025 10:58 AM EST Oxygen Saturation 98% 02/23/2025 10:58 AM EST Inhaled Oxygen Concentration - - Weight 117 kg (258 lb 6.4 oz) 02/23/2025 10:58 A M EST Height - - Body Mass Index 41.71 08/28/2024 9:35 AM EDT documented in this encounter Plan of Treatment Upcoming Encounters Date Type Department Care Team (Late st Contact Info) Description 04/06/2025 2:00 PM EST Medication Management [facility] [address] [place], [place] [phone] Lakia Herrmann, PharmD [address] [place] [address] Scheduled Orders Name Type Priority Associated Diagnoses Orde r Schedule Hepatitis B Core Antibody, Total Lab Routine Microcytic anemia Expected: 02/23/2025 (Approximate), Expires: 02/23/2026 Hepatitis B Surface Antibody, Qualitative Lab Routine Microcytic anemia Expected: 02/23/2025 (Approximate), Expires: 02/23/2026 Hepatitis B surface antigen, EIA Lab Routine Microcytic anemia Expected: 02/23/2025 (Approximate), Expires: 02/23/2026 Hepatitis C Antibody with Reflex to HCV, RNA, Quantitative, Real-Time PCR Lab Routine Microcytic anemia Expected: 02/23/2025 (Approximate), Expires: 02/23/2026 HIV-1/2 Antigen and Antibodies, Fourth Generation, with Reflexes Lab Routine Microcytic anemia Expected: 02/23/2025 (Approximate), Expires: 02/23/2026 RPR (Monitor) with Reflex to Titer Lab Routine Microcytic anemia Expected: 02/23/2025 (Approximate), Expires: 02/23/2026 documented as of this encounter Goals Goal Patient Goal Type Associated Problems Recent Progress Patient-Stated? Author Help patients manage their type 2 diabetes Care Plan Help patients manage their type 2 diabetes No Puia, Lakia, PharmD Patient has chronic kidney disease Care Plan Patient has chronic kidney disease No Puia, Lakia, PharmD Patient has chronic kidney disease Care Plan Patient has chronic kidney disease No Puia, Lakia, PharmD Patient has diabetic eye disease Care Plan Patient has diabetic eye disease No Michael, Orquidea, OD Patient has chronic kidney disease Care Plan Patient has chronic kidney disease No Michael, Orquidea, OD Patient has chronic kidney disease Care Plan Patient has chronic kidney disease No Akila Bertrand MA documented as of this encounter Procedures Procedure Name Priority Date/Time Associated Diagnosis Comments TSH W/REFLEX TO FT4 Routine 02/23/2025 1 2:00 PM EST Microcytic anemia Hair loss CBC WITH AUTO DIFFERENTIAL Routine 02/23/2025 12:00 PM EST Microcytic anemia IRON AND TOTAL IRON BINDING CAPACITY Routine 02/23/2025 12:00 PM EST Microcytic anemia FOLATE, SERUM Routine 02/23/2025 12:00 PM EST Microcytic anemia FERRITIN Routine 02/23/2025 12:00 PM EST Microcytic anemia VITAMIN B12 Routine 02/23/2025 12:00 PM EST Microcytic anemia documented in this encounter Results * (ABNORMAL) CBC auto differential (02/23/2025 12:00 PM EST) White Blood Count 10.0 4.8 - 10.8 X10*3/uL [facility] Red Blood Count 4.94 4.20 - 5.50 X10*6/uL [facility] Hemoglobin 9.8(L) 12.0 - 16.0 g/dl [facility] Hematocrit 34.8(L) 37.0 - 47.0 % [facility] Mean Corpuscular Volume 70.4(L) 80.0 - 98.0 fL [facility] Mean Corpuscular Hemoglobin 19.8(L) 27.0 - 33.0 pg [facility] Mean Corpuscular HGB Conc 28.2(L) 31.0 - 35.0 g/dl [facility] Red Cell Distribution Width 19.9(H) 11.0 - 16.0 % [facility] Platelet Count 257 160 - 400 X10*3/uL [facility] Mean Platelet Volume 11.0 9.4 - 12.3 fL [facility] Neutrophils Percent Auto 70.5 45 - 73 % [facility] Imm Gran Pct Auto 0.4 0.0 - 0.4 % [facility] Lymphocytes Percent Auto 21.3 20 - 40 % [facility] Monocytes Percent Auto 4.2 2 - 11 % [facility] Eosinophils Percent Auto 2.7 0 - 4 % [facility] Basophils Percent Auto 0.9 0 - 2 % [facility] NRBC Pct Auto 0.0 0.0 - 0.2 /100WBC [facility] Neutrophils Absolute Auto 7.1 2.0 - 8.3 x10*3/uL [facility] Imm Gran Abs Auto 0.04(H) 0.00 - 0.03 X10*3/uL [facility] Lymphocytes Absolute Auto 2.1 1.2 - 4.9 X10*3/uL [facility] Monocytes Absolute Auto 0.4 0.1 - 1.2 X10*3/uL [facility] Eosinophils Absolute Auto 0.3 0.0 - 0.4 X10*3/uL [facility] Basophils Absolute Auto 0.1 0.0 - 0.2 X10*3/uL [facility] NRBC Abs Auto 0.000 0.0 - 0.012 X10*3/uL [facility] Blood Venous blood specimen / Unknown 02/23/2025 12:00 PM EST 02/23/2025 1:11 PM EST us Bud Kenney MD LAB BLOOD ORDERABLES Final Resul t Performing Organization Address City/[facility] Co de Phone Number [facility] [address] [place] [phone] * TSH with Reflex to Free T4 (02/23/2025 12:00 PM EST) Pathologist [facility] TSH reflex Free T4 1.30 0.32 - 4.0 uIU/mL [facility] Blood Venous blood specimen / Unknown 02/23/2025 12:00 PM EST 02/23/2025 1:11 PM EST us Bud Kenney MD LAB BLOOD ORDERABLES Final Resul t Performing Organization Address City/[facility]/ZIP Co de Phone Number [facility] [address] [place] [phone] * Vitamin B12 (02/23/2025 12:00 PM EST) Vitamin B12 375 200 - 900 pg/mL [facility] Comment:NORMAL 200-900 PG/ML INDETERMINATE 160-199 PG/ML DEFICIENT < 160 PG/ML Blood Venous blood specimen / Unknown 02/23/2025 12:00 PM EST 02/23/2025 1:11 PM EST us Bud Kenney MD LAB BLOOD ORDERABLES Final Resul t Performing Organization Address [facility] Co de Phone Number [facility] [address] [place] [phone] * (ABNORMAL) Iron And Total Iron Binding Capacity (02/23/2025 12:00 PM EST) Iron 18(L) 30 - 160 mcg/dL [facility] Total Iron Binding Capacity 340 228 - 428 mcg/dL [facility] Percent Iron Saturation 5(L) 15 - 50 % [facility] Unsaturated Iron Binding 322 ug/dL [facility] Blood Venous blood specimen / Unknown 02/23/2025 12:00 PM EST 02/23/2025 1:11 PM EST us Bud Kenney MD LAB BLOOD ORDERABLES Final Resul t Performing Organization Address [facility] de Phone Number [facility] [address] [place] [phone] * Folate, Serum (02/23/2025 12:00 PM EST) Folate 9.9 > or = 4.0 ng/mL [facility] Comment:Reference Values:> o r = 4.0 ng/mL< 4.0 ng/mL suggests folate deficiency Methotrexate, aminopterin and folinic acid(leucovorin) are chemotherapeutic agents whose molecularstructures are similar to folate; therefore, the Architectfolate assay cannot be used for patients using these drugs. Blood Venous blood specimen / Unknown 02/23/2025 12:00 PM EST 02/23/2025 1:11 PM EST us Bud Kenney MD LAB BLOOD ORDERABLES Final Resul t [facility] [address] [place] [phone] [phone] * (ABNORMAL) Ferritin (02/23/2025 12:00 PM EST) Ferritin 8(L) 10 - 122 ng/mL [facility] Blood Venous blood specimen / Unknown 02/23/2025 12:00 PM EST 02/23/2025 1:11 PM EST us Bud Kenney MD LAB BLOOD ORDERABLES Final Resul t Performing Organization Address City/[facility]/ZIP Co de Phone Number [facility] [address] [place] [phone] documented in this encounter Visit Diagnoses Diagnosis Hair loss- Primary Unspecified alopecia Arthralgia, unspecified joint Microcytic anemia Unspecified iron deficiency anemia documented in this encounter Additional Health Concerns Active Problems Noted Date Diagnosed Date Help patients manage their type 2 diabetes 02/17 Patient has chronic kidney disease 02/17/2025 Patient has chronic kidney disease 02/18/2025 Patient has diabetic eye disease 02/19/2025 Patient has chronic kidney disease 02/19/2025 Patient has chronic kidney disease 02/23/2025 Assessment Noted Time PHQ-9 Depression Total Score: 16 025 2:08 PM EDT documented as of this encounter Care Teams Shop Router Relationship Specialty Start Date End Date Name, MD Alex [address] [place] [phone] PCP - General Internal Medicine 07/16/23 Brenda Gavin Community Health Worker 08/21/23 Arin Contreras, CLAYTON Tumbling Barrel Painter 08/21/23 Lakia Herrmann PharmD [address] [place] [phone] Pharmacist Internal Medicine 12/13/23 Dolores Barriga Tumbling Barrel PainterCap Inspector 12/30/24 documented as of this encounter
[2025-02-23 13:19] LABS: MANUAL DIFF FLAG NO
[2025-02-23 13:55] LABS: Hematocrit 34.8 % (37.0-47.0); Hemoglobin 9.8 g/dl (12.0-16.0); Imm Gran Abs Auto 0.04 X10*3/uL (0.00-0.03); Imm Gran Pct Auto 0.4 % (0.0-0.4); Lymphocytes Absolute Auto 2.1 X10*3/uL (1.2-4.9); Mean Corpuscular HGB Conc 28.2 g/dl (31.0-35.0); Mean Corpuscular Hemoglobin 19.8 pg (27.0-33.0); Mean Corpuscular Volume 70.4 fL (80.0-98.0); NRBC Abs Auto 0.000 X10*3/uL (0.0-0.012); NRBC Pct Auto 0.0 /100WBC (0.0-0.2); Platelet Count 257 X10*3/uL (160-400); Red Blood Count 4.94 X10*6/uL (4.20-5.50); White Blood Count 10.0 X10*3/uL (4.8-10.8)
[2025-02-23 14:30] LABS: Anion Gap 10 (12-20); Blood Urea Nitrogen 8 mg/dL (9-16); Calcium 9.0 mg/dL (8.4-10.2); Carbon Dioxide 27 mmol/L (22-29); Chloride 106 mmol/L (96-108); Cholesterol 146 mg/dL (<200); Estimated Glomerular Filt Rate > 60; HDL Cholesterol 38 mg/dL (>40); Iron 18 mcg/dL (30-160); Percent Iron Saturation 5 % (15-50); Potassium 3.8 mmol/L (3.3-5.1); Sodium 139 mmol/L (135-145); Total Iron Binding Capacity 340 mcg/dL (228-428); Triglycerides 286 mg/dL (<150); Unsaturated Iron Binding 322 ug/dL
[2025-02-23 14:34] LABS: Ferritin 8 ng/mL (10-122)
[2025-02-23 14:46] LABS: Folate 9.9 ng/mL (> or = 4.0); Vitamin B12 375 pg/mL (200-900)
--- OUTSIDE RECORDS SUMMARY | 2025-02-23 15:37 | XMS_ITS | Encounter Summary ---
Author Organization [employer] Address [address] [facility] 7t [place] [address] Care Team Providers Care Buttoner Name Role Phone Name, Alex NAJERA Primary Care Provider [phone] Brenda Gavin Unavailable Arin Contreras RN Unavailable Unavailable Lakia Herrmann PharmD Unavailable [phone] Reason for Visit * Reason Onset Date Comments Letter for School/Work 11/15/2023 Encounter Details Date Type Department Care Team (Late st Contact Info) Description 11/15/2023 Telephone [facility] [address] [place] [address] Name, MD Alex [address] [place], [place] [phone] Letter for School/Work Social History Tobacco Use [...] To inform that letter is ready to berry picker machine operator. Pt. States she is going to pick [...] Description 04/06/2025 2:00 PM EST Medication Management [facility] [address] [place] [address] Lakia Herrmann PharmD [address] [place], [place] [phone] documented as of this encounter Visit Diagnoses Not on filedocumented in this encounter Additional Health Concerns Assessment Noted Time PHQ-9 Depression Total Score: 13 024 1:11 PM EDT documented as of this encounter Care Teams Buttoner Relationship Specialty Start Date End Date Name, MD Alex [address] [place] [phone] PCP - General Internal Medicine 07/16/23 Brenda Gavin Community Health Worker 08/21/23 Arin Contreras, CLAYTON Configurator 08/21/23 Lakia Herramnn PharmD [address] [place] [phone] Pharmacist Internal Medicine 12/13/23 Dolores Barriga ConfiguratorField Director 12/30/24 documented as of this encounter
--- OUTSIDE RECORDS SUMMARY | 2025-02-23 15:37 | XMS_ITS | Encounter Summary ---
Author Organization [employer] Address [address] [facility] [address] [place] [address] Care Team Providers Care Casting Machine Adjuster Name Role Phone Name, Alex NAJERA Primary Care Provider [phone] Brenda Gavin Unavailable Arin Contreras RN Unavailable Unavailable Lakia Herrmann PharmD Unavailable [phone] Reason for Visit * Reason Onset Date Comments Durable Medical Equipment 02/24/2024 Encounter Details Date Type Department Care Team (Late st Contact Info) Description 02/24/2024 Telephone [facility] [address] [place], [place] [phone] Name, MD Alex [address] [place], [place] [phone] Durable Medical Equipment Social History Tobacco Use Types Packs/Day Years [...] encounter Miscellaneous Notes * Telephone Encounter - Louie Hewitt RN - 03/11/2024 4:16 PM EST Please initiate scripts for the below DMEs Cane Shower chair Support bars Nebulizer * Telephone Encounter - Isabella Andrade - 02/24/2024 2:06 PM EST Tc from Rafaela ([facility]) requesting durable medical equipment for pt. Rafaela informs if any questions you can give her a call Cane Shower chair Support bars Nebulizer Callback number [phone] documented in this encounter Plan of Treatment Upcoming Encounters Date Type Department Care Team (Late st Contact Info) Description 04/06/2025 2:00 PM EST Medication Management [facility] [address] [place] [phone] Lakia Herrmann PharmD [address] [place] [address] documented as of this encounter Visit Diagnoses Not on filedocumented in this encounter Additional Health Concerns Assessment Noted Time PHQ-9 Depression Total Score: 13 024 1:11 PM EDT documented as of this encounter Care Teams Casting Machine Adjuster Relationship Specialty Start Date End Date Name, MD Alex [address] [place] [address] PCP - General Internal Medicine 07/16/23 Brenda Gavin Community Health Worker 08/21/23 Arin Contreras, CLAYTON Oven Operator Automatic 08/21/23 Lakia Herrmann PharmD [address] [place] [phone] Pharmacist Internal Medicine 12/13/23 Dolores Barriga Oven Operator AutomaticObstetrics Scrub Nurse 12/30/24 documented as of this encounter
--- OUTSIDE RECORDS SUMMARY | 2025-02-23 15:38 | XMS_ITS | Encounter Summary ---
Author Organization [email or web address] Address [address] [facility] [address]t [place] [address] Care Team Providers Care Structural Engineering Technician Name Role Phone Name, Alex NAJERA Primary Care Provider Brenda Gavin Unavailable Arin Contreras RN Unavailable Unavailable Lakia Herrmann PharmD Unavailable [phone] Encounter Details Date Type Department Care Team (Latest Contact Info) Description 02/23/2025 Travel Social History Tobacco Use Types Packs/Day Years [...] AM EDT documented as of this encounter Plan of Treatment Upcoming Encounters Date Type Department Care Team (Late st Contact Info) Description 04/06/2025 2:00 PM EST Medication Management [facility] [address] [place] [address] Lakia Herrmann, PharmD [address] [place] [address] documented as of this encounter Goals Goal [...] Bertrand [place] documented as of this encounter Visit Diagnoses Not on filedocumented in this encounter Additional Health Concerns Active [...] documented as of this encounter Care Teams Structural Engineering Technician Relationship Specialty Start Date End Date Name, MD Alex [address] [place] [address] PCP - General Internal Medicine 07/16/23 Brenda Gavin Community Health Worker 08/21/23 Arin Contreras, CLAYTON Weight Recorder 08/21/23 Lakia Herrmann PharmD [address] [place] [address] Pharmacist Internal Medicine 12/13/23 Dolores Barriga Weight RecorderFixed Assets Accountant 12/30/24 documented as of this encounter
--- OUTSIDE RECORDS SUMMARY | 2025-02-23 15:38 | XMS_ITS | Encounter Summary ---
Author Organization [employer] Address [address] [facility] 7[address] [place] [address] Care Team Providers Care Manufacturer Agent Name Role Phone Name, Alex NAJERA Primary Care Provider [phone] Brenda Gavin Unavailable Arin Contreras RN Unavailable Unavailable Lakia Herrmann PharmD Unavailable [phone] Reason for Visit * Reason Onset Date Comments Appointment Request 05/26/2024 Encounter Details Date Type Department Care Team (Late st Contact Info) Description 05/26/2024 Telephone [facility] [address] [place] [address] Name, MD Alex [address] [place], [place] [phone] Appointment Request Social History Tobacco Use Types Packs/Day Years Used Date Smoking Tobacco: Every Day Cigarettes Passive Smoke Exposure: Current Smokeless Tobacco: Never [...] encounter Miscellaneous Notes * Telephone Encounter - Isabella Andrade - 05/26/2024 1:06 PM EST Tc from [facility] intake supervisor coal handling requesting appointment for a Physical as pt needs for a program the soonest availability. Kiln Maintenance advised theres nothing soon with provider as try rescheduling with different and there was no availability for soon appointment. Please contact [facility] if theres any availability or cancellation for a physical. [phone] [email or web address] documented in this encounter Plan of Treatment Upcoming Encounters Date Type Department Care Team (Late st Contact Info) Description 04/06/2025 2:00 PM EST Medication Management [facility] [address] [place] [address] Lakia Herrmann, PharmD [address] [place], [place] [phone] documented as of this encounter Visit Diagnoses Not on filedocumented in this encounter Additional Health Concerns Assessment Noted Time PHQ-9 Depression Total Score: 13 024 1:11 PM EDT documented as of this encounter Care Teams Manufacturer Agent Relationship Specialty Start Date End Date Name, MD Alex [address] [place] [address] PCP - General Internal Medicine 07/16/23 Brenda Gavin Community Health Worker 08/21/23 Arin Contreras, CLAYTON Senior Principal Software Engineer 08/21/23 Lakia Herrmann PharmD [address] [place] [address] Pharmacist Internal Medicine 12/13/23 Dolores Barriga Senior Principal Software EngineerSetter Off 12/30/24 documented as of this encounter
--- OUTSIDE RECORDS SUMMARY | 2025-02-23 15:38 | XMS_ITS | Encounter Summary ---
Author Organization [employer] Address [address] [facility] 7[address] [place] [address] Care Team Providers Care Auditor Tax Name Role Phone Name, Alex NAJERA Primary Care Provider Brenda Gavin Unavailable Arin Contreras RN Unavailable Unavailable Lakia Herrmann PharmD Unavailable [phone] Encounter Details Date Type Department Care Team (Latest Contact Info) Description 02/18/2025 Travel Social History Tobacco Use Types Packs/Day [...] Description 04/06/2025 2:00 PM EST Medication Management [facility] [address] [place], [place] [phone] AzuliaLakia, PharmD [address] [place], [place] [phone] documented as of this encounter Goals Goal [...] chronic kidney disease No Puia, Lakia, PharmD documented as of this encounter Visit Diagnoses Not on filedocumented in this encounter Additional Health Concerns Active Problems Noted Date Diagnosed Date Help patients manage their type 2 diabetes 02/17 Patient has chronic kidney disease 02/17/2025 Patient has chronic kidney disease 02/18/2025 Assessment Noted Time PHQ-9 Depression Total Score: 16 025 2:08 PM EDT documented as of this encounter Care Teams Auditor Tax Relationship Specialty Start Date End Date Name, MD Alex [address] [place] [address] PCP - General Internal Medicine 07/16/23 Brenda Gavin Community Health Worker 08/21/23 Arin Contreras, C[place]TON Electrical Control Assembler 08/21/23 Lakia Herrmann, BunnyD [address] [place] [address] Pharmacist Internal Medicine 12/13/23 Dolores Barriga Electrical Control AssemblerSpray Applicator 12/30/24 documented as of this encounter
--- OUTSIDE RECORDS SUMMARY | 2025-02-23 15:38 | XMS_ITS | Encounter Summary ---
Author Organization [employer] Address [address] [facility] 7[address] [place] [address] Care Team Providers Care Linter Saw Sharpener Name Role Phone Name, Alex NAJERA Primary Care Provider [phone] Brenda Gavin Unavailable Arin Contreras RN Unavailable Unavailable Lakia Herrmann PharmD Unavailable [phone] Reason for Visit * Reason Onset Date Comments Med Refill 02/18/2025 Encounter Details Date Type Department Care Team (Late st Contact Info) Description 02/18/2025 Refill [facility] [address] [place], [place] [phone] Name, MD Alex [address] [place] [address] Social History Tobacco Use Types Packs/Day Years [...] encounter Miscellaneous Notes * Telephone Encounter - Lakia Herrmann PharmD - 02/18/2025 2:18 PM EST Patient seen in [facility] & requesting refill for loperamide which you prescribed previously for periodic use while on Mounjaro. documented in this encounter Plan of Treatment Upcoming Encounters Date Type Department Care Team (Late st Contact Info) Description 04/06/2025 2:00 PM EST Medication Management [facility] [address] [place] [address] Lakia Herrmann PharmD [address] [place] [address] documented as of this encounter Goals Goal Patient Goal Type Associated Problems Recent Progress Patient-Stated? Author Help patients manage their type 2 diabetes Care Plan Help patients manage their type 2 diabetes No Lakia Herrmann, PharmD Patient has chronic kidney disease Care Plan Patient has chronic kidney disease No PuLakia ying, PharmD Patient has chronic kidney disease Care Plan Patient has chronic kidney disease No Lakia Herrmann PharmD documented as of this encounter Visit Diagnoses Not on filedocumented in this encounter Additional Health Concerns Active Problems Noted Date Diagnosed Date Help patients manage their type 2 diabetes 02/17 Patient has chronic kidney disease 02/17/2025 Patient has chronic kidney disease 02/18/2025 Assessment Noted Time PHQ-9 Depression Total Score: 16 025 2:08 PM EDT documented as of this encounter Care Teams Linter Saw Sharpener Relationship Specialty Start Date End Date Name, MD Alex [address] [place] [address] PCP - General Internal Medicine 07/16/23 Brenda Gavin Community Health Worker 08/21/23 Arin Contreras RN Heavy Equipment Technician 08/21/23 Lakia Herrmann PharmD [address] [place] [address] Pharmacist Internal Medicine 12/13/23 Dolores Barriga Heavy Equipment TechnicianTraining Executive 12/30/24 documented as of this encounter
--- OUTSIDE RECORDS SUMMARY | 2025-02-23 15:38 | XMS_ITS | Encounter Summary ---
Author Organization [employer] Address [address] [facility] 7[address] [place] [address] Care Team Providers Care Dining Car Steward Name Role Phone Name, Alex NAJERA Primary Care Provider [phone] Brenda Gavin Unavailable Arin Contreras RN Unavailable Unavailable Puia, Lakia PharmD Unavailable Reason for Visit * Reason Comments Med Refill Encounter Details Date Type Department Care Team (Late st Contact Info) Description 04/22/2024 Refill [facility] [address] [place], [place] [phone] PuiaDonyLakia, PharmD [address] [place] [address] Type 2 diabetes mellitus without complication, with long-term current use of insulin ([facility]) Social History Tobacco Use Types Packs/Day Years [...] Telephone Encounter - Lakia Herrmann PharmD - 04/22/2024 2:38 PM EST Refill not needed, see [facility] tele note today documented in this encounter Plan of Treatment Upcoming Encounters Date Type Department Care Team (Late st Contact Info) Description 04/06/2025 2:00 PM EST Medication Management [facility] [address] [place] [address] Lakia Herrmann PharmD [address] [place] [address] documented as of this encounter Visit Diagnoses Diagnosis Type 2 diabetes mellitus without complication, with long-term current use of insulin (HCC) documented in this encounter Additional Health Concerns Assessment Noted Time PHQ-9 Depression Total Score: 13 024 1:11 PM EDT documented as of this encounter Care Teams Dining Car Steward Relationship Specialty Start Date End Date Name, MD Alex [address] [place] [address] PCP - General Internal Medicine 07/16/23 Brenda Gavin Community Health Worker 08/21/23 Arin Contreras, CLAYTON Textile Worker 08/21/23 Lakia Herrmann PharmD [address] [place] [address] Pharmacist Internal Medicine 12/13/23 Dolores Barriga Textile WorkerHandstitching Machine Collar Feller 12/30/24 documented as of this encounter
--- OUTSIDE RECORDS SUMMARY | 2025-02-23 15:38 | XMS_ITS | Encounter Summary ---
Author Organization [employer] Address [address] [place] [address] [address] [place] [address] Care Team Providers Care Clinical Trials Nurse Name Role Phone Name, Alex NAJERA Primary Care Provider Brenda Gavin Unavailable Arin Contreras RN Unavailable Unavailable Lakia Herrmann PharmD Unavailable [phone] Reason for Visit * Reason Onset Date Comments cx appt waitlist 04/02/2024 Encounter Details Date Type Department Care Team ([facility] st Contact Info) Description 04/02/2024 Telephone [facility] [address] [place], [place] [phone] Adin Ortiz, DMD [address] [place], [place] [phone] cx appt waitlist Social History Tobacco Use Types Packs/Day Years [...] encounter Miscellaneous Notes * Telephone Encounter - Carmen Forbes - 04/02/2024 11:04 AM EST Patient called in to rs appt for christianity with Dr. Ortiz Per front man appt is cancelled and patient is placed on waitlist. Patient has been informed she will get a call to schedule when it is her turn on the list. Patient understood DR documented in this encounter Plan of Treatment Upcoming Encounters Date Type Department Care Team (Late st Contact Info) Description 04/06/2025 2:00 PM EST Medication Management [facility] [address] [place] [address] Lakia Herrmann, PharmD [address] [place], [place] [phone] documented as of this encounter Visit Diagnoses Not on filedocumented in this encounter Additional Health Concerns Assessment Noted Time PHQ-9 Depression Total Score: 13 024 1:11 PM EDT documented as of this encounter Care Teams Clinical Trials Nurse Relationship Specialty Start Date End Date Name, MD Alex [address] [place] [address] PCP - General Internal Medicine 07/16/23 Brenda Gavin Community Health Worker 08/21/23 Arin Contreras, CLAYTON Tag Writer 08/21/23 Lakia Herrmann PharmD [address] [place] [address] Pharmacist Internal Medicine 12/13/23 Dolores Barriga Tag WriterHeavy Duty Mechanic 12/30/24 documented as of this encounter
--- OUTSIDE RECORDS SUMMARY | 2025-02-23 15:38 | XMS_ITS | Clinical Summary ---
Author Organization [employer] Address [address] [place] [address] [address] [place] [address] Care Team Providers Care Sorting Machine Attendant Name Role Phone Name, Alex NAJERA Primary Care Provider [phone] Brenda Gavin Unavailable Arin Contreras RN Unavailable Unavailable Lakia Herrmann PharmD Unavailable [phone] Allergies Active Allergy Reactions Criticality Noted Date Comments Albuterol Palpitations Low 03/28/2018 Fenofibrate Hallucinations 03/23/2020 Metformin Diarrhea 11/06/2023 Medications * This document contains information received from the source organization and may not represent a complete record from that organization. LORazepam (Ativan) 0.5 MG tablet Take 0.5 mg by mouth if needed each day for anxiety. Active DULoxetine (Cymbalta) [address] capsule Take 60 mg by mouth before breakfast. Do not crush or chew. Active Cariprazine HCl 3 MG capsule Take 3 mg by mouth at bedtime. Active Alcohol Swabs (B-D SINGLE USE SWABS REGULAR) padsIndications:T ype 2 diabetes mellitus without complication, with long-term current use of insulin (HCC) USE 1 TWICE DAILY 100 each 024 Active FreeStyle lancetsIndication s:Type 2 diabetes mellitus without complication, with long-term current use of insulin (HCC) 1 each by Other route at noon and 1 each in the evening. USE TO CHECK BLOOD SUGAR DIRECTED TWICE DAILY.. 100 each 024 Active Sodium Fluoride 1.1 % creamIndications: Dental caries [place] teeth for 2 minutes, morning and night. Spit, do not rinse. Do not eat or drink anything for 30 minutes following use. 112 g 3 Active glucose 4 g chewable tabletIndications :Type 2 diabetes mellitus without complication, with long-term current use of insulin ([facility]) Chew 4 tablets (16 g) if needed for low blood sugar. (<70 mg/dL). Wait 15 mins and recheck BG. If still <70 mg/dL repeat treatment. 20 tablet 5 024 2024 Active gabapentin (Neurontin) 300 MG capsuleIndication s:Type 2 diabetes mellitus without complication, without long-term current use of insulin ([facility]) TAKE 1 CAPSULE BY MOUTH THREE TIMES DAILY 90 capsule 1 Active Additional Information Patient not taking.Reported on 02/18/2025 empagliflozin (Jardiance) 25 MGIndications:Typ e 2 diabetes mellitus with hyperglycemia, with long-term current use of insulin ([facility]) Take 1 tablet (25 mg) by mouth with breakfast. 30 tablet 025 2025 Active ferrous sulfate 325 (65 Fe) MG EC tabletIndications :Microcytic anemia TAKE 1 TABLET BY MOUTH EVERY OTHER DAY. DO NOT BREAK, CRUSH, DISSOLVE OR CHEW. 45 tablet 1 Active Continuous Glucose Group Exercise Manager (FreeStyle Demetri 3 [place]) deviceIndications :Type 2 diabetes mellitus without complication, with long-term current use of insulin ([facility]) 1 each Once per day. Use as directed for CGM 1 each Active Continuous Glucose Sensor (FreeStyle Demetri 3 Plus Sensor) miscIndications:T ype 2 diabetes mellitus without complication, with long-term current use of insulin ([facility]) Apply 1 every 15 days as directed for CGM 2 each 02/18/20 25 4:41 PM EST Active glucose blood (FreeStyle Precision Dario Test) test stripIndications: Type 2 diabetes mellitus without complication, with long-term current use of insulin ([facility]) Use to test blood sugar up to 2 times daily, as directed 50 each Active atorvastatin (Lipitor) 20 MG tabletIndications :Type 2 diabetes mellitus without complication, with long-term current use of insulin ([facility]),Mixed hyperlipidemia Take 1 tablet (20 mg) by mouth Once per day. 90 tablet 3 Active levalbuterol (Xopenex) 45 MCG/ACT inhalerIndication s:Moderate persistent asthma, unspecified whether complicated INHALE 2 PUFFS BY MOUTH EVERY 6 HOURS NEEDED FOR WHEEZING 15 g 3 Active glucagon (Baqsimi Two Pack) 3 MG/DOSE nasal powderIndications :Type 2 diabetes mellitus without complication, with long-term current use of insulin ([facility]) Administer 3 mg via 1 device into the nostril for hypoglycemia with loss of consciousness. If no response after 15 minutes administer an additional dose via 2nd device into other nostril. 2 each 1 Active fluconazole (Diflucan) 150 MG tabletIndications :Vaginal itching TAKE 1 TABLET BY MOUTH ONCE 1 tablet 1 02/18/20 4:41 PM EST Active Tirzepatide (Mounjaro) 7.5 MG/0.5ML solution auto-injectorIndi cations:Type 2 diabetes mellitus without complication, with long-term current use of insulin ([facility]) Inject 7.5 mg under the skin 1 (one) time per week. 2 mL 02/18/20 4:41 PM EST Active budesonide-formot bolivar (Symbicort) 80-4.5 MCG/ACT inhalerIndication s:Moderate persistent asthma, unspecified whether complicated Inhale 2 puffs in the morning and at bedtime. Rinse mouth with water after use to reduce aftertaste and incidence of candidiasis. Do not swallow. 1 each 5 02/18/20 4:41 PM EST 2025 Active FT Gas Relief Ultra Strength 180 MG capsule TAKE 1 CAPSULE BY MOUTH 4 TIMES A DAY IN THE MORNING, AT NOON, IN THE EVENING, AND AT BEDTIME NEEDED FOR GAS 80 capsule Active loperamide (Imodium A-D) 2 MG tablet Take 1-2 tablets (2-4 mg) by mouth if needed in the morning, at noon, in the evening, and at bedtime for diarrhea for up to 10 days. Do not exceed 8 tablets per day 40 tablet 1 025 2024 Active insulin degludec (Tresiba FlexTouch) 200 UNIT/ML injectionIndicati ons:Type 2 diabetes mellitus without complication, with long-term current use of insulin ([facility]) Inject 42 units subQ once daily as directed. Increase as directed to max of 54 units per day. 9 mL 2 025 Active insulin pen needle (BD Pen Needle Mikayla 2nd Gen) 32G x 4 mm miscIndications:T ype 2 diabetes mellitus without complication, with long-term current use of insulin ([facility]) USE TO INJECT INSULIN ONCE DAILY 100 each 3 025 Active insulin pen needle (BD Pen Needle Mikayla 2nd Gen) 32G x 4 mm miscIndications:T ype 2 diabetes mellitus without complication, with long-term current use of insulin ([facility]) USE TO INJECT INSULIN ONCE DAILY 100 each 3 024 2024 Discontinued(R eorder (will not trigger notification to Pharmacy)) insulin degludec (Tresiba FlexTouch) 200 UNIT/ML injectionIndicati ons:Type 2 diabetes mellitus without complication, with long-term current use of insulin ([facility]) Inject 40 units subQ once daily as directed. 3 mL 11 025 2024 Discontinued(R eorder (will not trigger notification to Pharmacy)) Active Problems Problem Noted Date Diagnosed Date Moderate major depression ([facility]) 11/11/2024 Healthcare maintenance 06/24/2024 Menorrhagia with regular cycle 06/24/2024 Vaginal itching 06/24/2024 Microcytic anemia 03/05/2024 Tobacco dependence 07/10/2023 Cervical disc disorder with radiculopathy 2023 Neuropathy 01/02/2023 Overview (01/02/2023): Numbness and tingling in legs; EMG performed. Will task MA to locate results Rx gabapentin 300 mg TID for neuropathy EMG 09/05/22: Early peripheral neuropathy in LE, R L4-S1 innervated muscles c/w mild distal chronic neuropathic changes of neuropathy Abnormal uterine bleeding (AUB) 12/12/2022 Overview (12/12/2022): Reports menorrhagia with large clots Requesting Pilot Supervisor Referral Assessment & Plan (12/12/2022 7:28 PM EDT): Time did not permit to discuss further Will task MA to schedule appt with CNM RTC if bleeding worsens Monitor for lightheadedness, syncope F/u PRN Mixed hyperlipidemia 12/12/2022 Overview (12/12/2022): Elevated lipid panel 09/11/22, treating with Atorvastatin 20 mg daily. Assessment & Plan (12/12/2022 7:30 PM EDT): Continue med and lifestyle changes F/u PRN TACO (generalized anxiety disorder) 11/28/2022 Assessment & Plan (11/28/2022 8:33 AM EDT): Assessment: Patient with anxiousness, unable to control excessive worry, difficulties relaxing, restlessness, easily annoyed, panic attacks, irrational fears, anhedonia, depressed mood, isolation, sleep disturbance, frustration towards self, difficulties concentrating, and crying spells in the context of limited support parenting, health concerns, and lack of social support. Patient requested an OP therapy referral as she would benefit from additional support. Patient is already connected to psychiatry (Fahad Griffin). At this time Sylvia Churchill meets criteria for Visit Diagnoses: Problem List Items Addressed This Visit Other TACO (generalized anxiety disorder) Mild episode of recurrent major depressive disorder (CMS/HCC) Patient ready to address current needs Yes Strengths include motivation to seek help PLAN: 1. Follow up with [facility]: Not recommended for follow-up 2. Patient goal is to be connected to a therapist 3. Behavioral Recommendations a. Patient will use coping techniques provided b. Patient will continue to comply with medication c. Patient will engage in therapy once service is established Mild episode of recurrent major depressive disor syed 11/14/2022 Overview (12/12/2022): Care managed psych provider Treating with Vraylar 3mg at night and Duloxetine 60 mg BID Difficulty communicating with team b/c they don't speak Armenian Assessment & Plan (11/14/2022 10:52 AM EDT): Difficulty communicating w/ current psych provider, language barrier Refer outpatient Armenian speaking F/u 3 months with new PCP or sooner PRN Severe obesity (CMS/HCC) 11/08/2022 Cervical spine pain 09/20/2022 Overview (09/20/2022): Chronic BUE pending, scheduled for 09/13/22 Assessment & Plan (09/20/2022 9:15 PM EDT): BUE pending Rx Diclofenac gel for Cervical neck pain Followup 2 months or sooner PRN Chronic low back pain 04/27/2022 Overview (09/20/2022): BLE EMG ordered 09/05/22 Assessment & Plan (12/12/2022 7:26 PM EDT): Numbness and tingling in legs; EMG performed. Will task MA to locate results physical therapy discontinued by Pt Continue Lidocaine patches and Cymbalta F/u 3 months with new PCP or sooner PRN Type 2 diabetes mellitus 04/18/2021 Overview (01/02/2023): A1c: 7.0 on 09/11/22 Glucose 130 on 09/11/22 Reports BG ranges 115-230s at home Numbness and tingling in legs; EMG performed. Will task MA to locate results Rx gabapentin 300 mg TID for neuropathy EMG 09/05/22: Early peripheral neuropathy in LE, R L4-S1 innervated muscles c/w mild distal chronic neuropathic changes of neuropathy Continue Lantus 46 units, and Trulicity 0.75mg once a week Discontinue Glipizide 10mg BID with meals, Encouraged diabetic diet Foot exam: 07/04/22 WNL, 3rd digit of R foot had limited sensation Lipid panel: pending Microalbuminuria: pending Tdap: Due Will discuss at next visit PCV 20: due Will discuss at next visit Statin: pending lipid panel order Slava/Arb: Lisinopril 2.5mg daily F/u 1 month or sooner PRN Assessment & Plan (12/12/2022 7:25 PM EDT): Numbness and tingling in legs; EMG performed. Will task MA to locate results Rx gabapentin 300 mg TID for neuropathy Educated pt on Lisinopril 2.5mg use to protect kidneys. BP is well-controlled so we Rx low dose. Pt agreed to take Monitor for dizziness, low BP, syncope F/u PRN with new PCP 3 months Assessment & Plan (09/20/2022 9:13 PM EDT): Discontinue Glipizide Continue above meds Continue diet Followup 2 months or sooner PRN Mixed stress and urge urinary incontinence 05/26 Obesity 03/28/2018 Mild intermittent asthma 03/28/2018 Carpal tunnel syndrome 03/28/2018 Overview (01/02/2023): 08/21/22: Ortho appt. No Nerve conduction study (NCS) records. I educated her about carpal and cubital tunnel syndrome. I ordered a NCS to assess for cervical radiculopathy vs peripheral neuropathy. A1c will need to be better controlled for any surgical intervention in the future, goal < 8% 11/01/22: EMG upper extremities. Bilateral median nerve prolonged distal latency of nerve signals and bilateral ulnar nerves with decreased velocity Assessment & Plan (12/12/2022 7:22 PM EDT): EMG results pending Will task MA to locate results F/u PRN with new PCP Resolved Problems Problem Noted Date Diagnosed Date Resolved Date Hypertriglyceridemia 05/26/2018 023 Encounters * This document contains information received from the source organization and may not represent a complete record from that organization. 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 (HCC) (Primary Dx); Hypertensive retinopathy of both eyes; Presbyopia 02/05/2025 Travel 02/04/2025 Telephone [facility] [address] [place] [address] Alex Pickett MD Prior Authorization 01/08/2025 Telephone [facility] [address] [place] [address] Erik Villegas, [facility] Follow Up 01/07/2025 Telephone [facility] [address] [place] [address] Alex Pickett MD 01/07/2025 Telephone [facility] [address] [place] [phone] Rajani Dalal [place] Appointment Request 01/06/2025 Refill [facility] [address] [place] [address] Alex Pickett MD 01/06/2025 Travel 12/30/2024 Telephone [facility] [address] [place] [address] Alex Pickett MD Care Coordination (ICP Care Plan) 12/23/2024 Refill [facility] [address] [place] [phone] Alex Pickett MD Mild intermittent asthma without complication 12/22/2024 Refill [facility] [address] [place] [address] Lakia Herrmann, PharmD Type 2 diabetes mellitus without complication, with long-term current use of insulin ([facility]/HCC) 12/15/2024 Telephone [facility] [address] [place] [address] Rajani Dalal MA CHART PREP from Last 3 Months Immunizations Immunization Administration Dates Next Due HepB-CpG 02/10/2024,12/13/2023 Influenza injectable quadrivalent preservative f ree 01/18/2022,03/28/2018 Influenza, seasonal, injectable, preservative fr ee 12/13/2023 Pneumococcal Conjugate PCV 20 12/13/2023 Pneumococcal Polysaccharide PPSV23 03/28/2018 Tdap 12/13/2023 Social History Tobacco Use Types Packs/Day Years Used Date Smoking Tobacco: Every Day Cigarettes 1 13.4 Started: 10/06/2011 Passive Smoke Exposure: Current Smokeless Tobacco: Never Tobacco Cessation:Ready to Q uit: No; Counseling Given: Yes Alcohol Use Standard Drinks/Week Comments Not Currently [...] Q2 Not on file 06/15/2024 Comments No Intention Date Recorded No desire to become (finding) 0 06/24/2024 Sex and Gender Information Value Date Recorded Sex Assigned at Female 01/29/2022 10:34 AM EDT Legal Sex Female 10:34 AM EDT Gender Identity Female 01/29/2022 10:34 AM EDT Sexual Orientation Choose not to disclose 2021 10:34 AM EDT Last Filed Vital Signs Vital Sign Reading [...] oz) 02/23/2025 10:58 A M EST Height 167.6 cm (5' 6 ) 08/28/2024 9:35 AM EDT Body Mass Index 41.71 08/28/2024 9:35 AM EDT Plan of Treatment Upcoming Encounters Date Type Department Care Team (Late st Contact Info) Description 04/06/2025 2:00 PM EST Medication Management [facility] [address] [place] [address] Lakia Herrmann, PharmD [address] [place] [address] Health Maintenance Due Date Last Done Comments Alcohol/Substance Use Screening 1997 HPV Vaccines (1 - 3-dose series) 2000 Diabetes: Foot Exam 11/15/2023 11/14/2022, 11/14/2022, 11/14/2022, Additional history exists Dental Oral Exam 09/05/2024 03/06/2024 Dental Prophylaxis 09/05/2024 03/06/2024 COVID-19 Vaccine ( season) 2024 06/08/2021, 10/11/2020, 09/20/2020 Influenza Vaccine (#1) 2024 , 01/18/2022, 03/28/2018 Dental X-Ray: Bitewings 03/07/2025 03/06/2024 Diabetes: Hemoglobin A1C 04/08/2025 025, 10/05/2024, 06/24/2024, Additional history exists Depression Monitoring 05/14/2025 11/11/2024, 025 Family Planning (PISQ) 06/24/2025 06/24/2024 SDOH Screening 06/24/2025 06/24/2024 Disability Screening 08/28/2025 08/28/2024 Diabetes: Urine Protein Screening 09/04/2025 09/04/2024, 09/04/2024, 10/29/2023, Additional history exists Eye Exam 02/05/2026 02/05/2025, 09/2024, 02/05/2025, Additional history exists Lipid Panel 02/23/2026 02/23/2025, 060 08/2024, 10/29/2023, Additional history exists Tobacco Screening 02/23/2026 02/23/2025 Dental X-Ray: Full Mouth 03/07/2027 03/06/2024, 04/2 08/2021 Cervical Cancer Screening 05/27/2028 HPV/Cotest 05/27/2028 05/27/2023, 04/23/2018 Pap Smear 05/27/2028 05/27/2023 DTaP/Tdap/Td Vaccines (2 - Td or Tdap) 12/12/2033 12/13/2023 Zoster Vaccines (1 of 2) 08/16/2035 RSV Patients and Patients Aged 60 years or older (1 - 1-dose 75+ series) 2060 HIV Screening Completed 07/02/2022 Hepatitis C Screening Completed 07/02/2022 Pneumococcal Vaccine: Pediatrics (0 to 5 Years) and At-Risk Patients (6 to 49) Years Completed 12/13/2023, 03/28/2018 Hepatitis B Vaccines Completed 02/10/2024, 12/13/19 24 HIB Vaccines Aged Out No longer eligi ble based on patient's age to complete this topic Hepatitis A Vaccines Aged Out No long er eligible based on patient's age to complete this topic IPV Vaccines Aged Out No longer eligi ble based on patient's age to complete this topic Meningococcal B Vaccine Aged Out No l onger eligible based on patient's age to complete this topic Meningococcal Vaccine Aged Out No nir parmjit eligible based on patient's age to complete this topic RSV under 20 months Aged Out No longe r eligible based on patient's age to complete this topic Rotavirus Vaccines Aged Out No longer eligible based on patient's age to complete this topic Goals Goal Patient Goal Type Associated Problems [...] chronic kidney disease No Akila Bertrand MA Procedures Procedure Name Priority Date/Time Associated Diagnosis Comments LIPID PANEL, STANDARD Routine 02/23/2025 12:00 PM EST BASIC METABOLIC PANEL Routine 02/23/2025 12:00 PM EST CBC WITH AUTO DIFFERENTIAL Routine 02/23/2025 12:00 PM EST Microcytic anemia TSH W/REFLEX TO FT4 Routine 02/23/2025 1 2:00 PM EST Microcytic anemia Hair loss VITAMIN B12 Routine 02/23/2025 12:00 PM EST Microcytic anemia IRON AND TOTAL IRON BINDING CAPACITY Routine 02/23/2025 12:00 PM EST Microcytic anemia FOLATE, SERUM Routine 02/23/2025 12:00 PM EST Microcytic anemia FERRITIN Routine 02/23/2025 12:00 PM EST Microcytic anemia OCT, RETINA - OU - BOTH EYES Routine 02/05/2025 2:00 PM EST 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 (HCC) POCT GLYCATED HEMOGLOBIN, TOTAL Routine 01/06/2025 3:34 PM EDT Type 2 diabetes mellitus without complication, with long-term current use of insulin ([facility]) ALBUMIN, RANDOM URINE W/CREATININE Routine 09/04/2024 10:06 AM EDT Type 2 diabetes mellitus with hyperglycemia, without long-term current use of insulin ([facility]) Diarrhea due to drug Bloating symptom PROPHYLAXIS - ADULT Routine 03/06/2024 9 :00 AM EST Dental caries Gingivitis Partial edentulism, unspecified edentulism class INTRAORAL - COMPLETE SERIES OF RADIOGRAPHIC IMAGES Routine 03/06/2024 9:00 AM EST Dental caries Gingivitis Partial edentulism, unspecified edentulism class COMPREHENSIVE ORAL EVALUATION - NEW OR ESTABLISHED PATIENT Routine 03/06/2024 9:00 AM EST Dental caries Gingivitis Partial edentulism, unspecified edentulism class HPV MRNA E6/E7 REFLEX TO HPV 16, 18/45 Routine 05/27/2023 9:30 AM EST PAP SMEAR Routine 05/27/2023 9:30 AM EST Cervical cancer screening HEPATITIS C AB W/REFL TO HCV RNA, QN, PCR Routine 07/02/2022 1:15 PM EDT Vaginal itching Pelvic pain HIV 1/2 ANTIGEN/ANTIBODY, FOURTH GENERATION W/RFL Routine 07/02/2022 1:15 PM EDT Vaginal itching Pelvic pain from Last 3 Months or Most Recently Relevant to Health Maintenance Results * TSH with Reflex to Free T4 (02/23/2025 12:00 PM EST) TSH reflex Free T4 1.30 0.32 - 4.0 uIU/mL [facility] Blood Venous blood specimen / Unknown 02/23/2025 12:00 PM EST 02/23/2025 1:11 PM EST us Bud Kenney MD LAB BLOOD ORDERABLES Final Resul t [facility] [address], [place] [phone] * (ABNORMAL) CBC auto differential (02/23/2025 12:00 PM EST) White Blood Count 10.0 4.8 - 10.8 X10*3/uL [facility] Red Blood Count 4.94 4.20 - 5.50 X10*6/uL [facility] Hemoglobin 9.8(L) 12.0 - 16.0 g/dl [facility] Hematocrit 34.8(L) 37.0 - 47.0 % [facility] Mean Corpuscular Volume 70.4(L) 80.0 - 98.0 fL [facility] Mean Corpuscular Hemoglobin 19.8(L) 27.0 - 33.0 pg [facility] Mean Corpuscular HGB Conc 28.2(L) 31.0 - 35.0 g/dl [facility] Red Cell Distribution Width 19.9(H) 11.0 - 16.0 % [facility] Platelet Count 257 160 - 400 X10*3/uL [facility] Mean Platelet Volume 11.0 9.4 - 12.3 fL [facility] Neutrophils Percent Auto 70.5 45 - 73 % [facility] Imm Gran Pct Auto 0.4 0.0 - 0.4 % [facility] Lymphocytes Percent Auto 21.3 20 - 40 % [facility] Monocytes Percent Auto 4.2 2 - 11 % [facility] Eosinophils Percent Auto 2.7 0 - 4 % [facility] Basophils Percent Auto 0.9 0 - 2 % [facility] NRBC Pct Auto 0.0 0.0 - 0.2 /100WBC [facility] Neutrophils Absolute Auto 7.1 2.0 - 8.3 x10*3/uL [facility] Imm Gran Abs Auto 0.04(H) 0.00 - 0.03 X10*3/uL [facility] Lymphocytes Absolute Auto 2.1 1.2 - 4.9 X10*3/uL [facility] Monocytes Absolute Auto 0.4 0.1 - 1.2 X10*3/uL [facility] Eosinophils Absolute Auto 0.3 0.0 - 0.4 X10*3/uL [facility] Basophils Absolute Auto 0.1 0.0 - 0.2 X10*3/uL [facility] NRBC Abs Auto 0.000 0.0 - 0.012 X10*3/uL [facility] Blood Venous blood specimen / Unknown 02/23/2025 12:00 PM EST 02/23/2025 1:11 PM EST us Bud Kenney MD LAB BLOOD ORDERABLES Final Resul t Performing Organization Address [facility] Co de Phone Number [facility] [address] [place] [phone] * (ABNORMAL) Iron And Total Iron Binding Capacity (02/23/2025 12:00 PM EST) Iron 18(L) 30 - 160 mcg/dL [facility] Total Iron Binding Capacity 340 228 - 428 mcg/dL [facility] Percent Iron Saturation 5(L) 15 - 50 % [facility] Unsaturated Iron Binding 322 ug/dL [facility] Blood Venous blood specimen / Unknown 02/23/2025 12:00 PM EST 02/23/2025 1:11 PM EST us Bud Kenney MD LAB BLOOD ORDERABLES Final Resul t Performing Organization Address [facility]/ZIP Co de Phone Number [facility] [address] [place] [phone] * Folate, Serum (02/23/2025 12:00 PM EST) Folate 9.9 > or = 4.0 ng/mL [facility] Comment:Reference Values:> o r = 4.0 [...] ORDERABLES Final Resul t Performing Organization Address [facility] Co de Phone Number [facility] [address] [place] [phone] * (ABNORMAL) Ferritin (02/23/2025 12:00 PM EST) Ferritin 8(L) 10 - 122 ng/mL [facility] Blood Venous blood specimen / Unknown 02/23/2025 12:00 PM EST 02/23/2025 1:11 PM EST us Bud Kenney MD LAB BLOOD ORDERABLES Final Resul t Performing Organization Address [facility] Phone Number [facility] [address] [place] [phone] * Vitamin B12 (02/23/2025 12:00 PM EST) Vitamin B12 375 200 - 900 pg/mL [facility] Comment:NORMAL 200-900 PG/ML INDETERMINATE 160-199 PG/ML DEFICIENT < 160 PG/ML Blood Venous blood specimen / Unknown 02/23/2025 12:00 PM EST 02/23/2025 1:11 PM EST us Bud Kenney MD LAB BLOOD ORDERABLES Final Resul t Performing Organization Address [facility]. [facility] de Phone Number [facility] [address] [place] [phone] * (ABNORMAL) Lipid Panel, Standard (02/23/2025 12:00 PM EST) Triglycerides 286(H) <150 mg/dL [facility] Comment:Desirable Triglyceri de: less than 150 mg/dLBorderline High Triglyceride 150-199 mg/dLHigh Triglyceride: 200-499 mg/dLVery High Triglyceride: greater than or equal to 5OO mg/dL Cholesterol 146 <200 mg/dL [facility] Comment:Desirable Cholestero l: less than 200 mg/dLBorderline High Cholesterol: 200-239 mg/dLHigh Cholesterol: greater than 239 mg/dL LDL Cholesterol Calculated 51 <100 mg/dL [facility] Comment:Desirable LDL: less than 100 mg/dLNear Optimal/Above Optimal LDL: 110- 129 mg/dLBorderline High LDL: 130-159 mg/dLHigh LDL: 160-189 mg/dLVery High LDL: greater than or equal to 190 mg/dL HDL Cholesterol 38(L) >40 mg/dL [facility] Comment:Desirable HDL: great er than 40 mg/dL Note: This HDL assay may give artificially low results in patients with liver disease. 02/23/2025 12:0 0 PM EST 02/23/2025 1:11 PM EST us Alex Name MD LAB BLOOD ORDERABLES Final Resul t [facility] [address] [place] [phone] * (ABNORMAL) Basic Metabolic Panel (02/23/2025 12:00 PM EST) Sodium 139 135 - 145 mmol/L [facility] Potassium 3.8 3.3 - 5.1 mmol/L [facility] Chloride 106 96 - 108 mmol/L [facility] Carbon Dioxide 27 22 - 29 mmol/L [facility] Anion Gap 10(L) 12 - 20 [facility] Urea Nitrogen (BUN) 8(L) 9 - 16 mg/dL [facility] Creatinine, Serum 0.67 0.5 - 1.4 mg/dL [facility] Estimated Glomerular Filt Rate >60 [facility] Comment:Chronic Kidney Disea se: Estimated GFR < 60 mL/min/1.93c6Kioqqw Kidney Disease: Estimated GFR < 15 mL/min/1.73m2 Glucose 148(H) 60 - 115 mg/dL [facility] Calcium 9.0 8.4 - 10.2 mg/dL [facility] 02/23/2025 12:0 0 PM EST 02/23/2025 1:11 PM EST Edith Hong CHIEF MECHANICAL OFFICER LAB BLOOD ORDERABLES Wendy l Result [facility] [address] [place] [phone] * OCT, Retina - OU - Both Eyes (02/05/2025 2:00 PM EST) Narrative Orquidea Rodriguez, OD - 02/19/2025 12:01 PM EST Images from the original result were not included. 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 Will monitor at her next exam. Orquidea Rodriguez OD OPHTH TOMOGRAPHY Final Result * (ABNORMAL) POCT Hgb A1c (01/06/2025 3:34 PM EDT) Hemoglobin A1C 7.5(A) 4.0 - 5.7 % Blood 01/06/2025 3:34 PM EDT Alex Pickett MD POINT OF CARE TEST ENTER/EDIT OR DERABLES Final Result * Albumin, Random Urine W/Creatinine (09/04/2024 10:06 AM EDT) Creatinine, Urine 316.74 mg/dL [facility] Microalbumin Urine 17.0 mg/L [facility] Microalbum Creatinine Ratio Ur 5.3 <30 ug/mg cr [facility] Comment:Albumin/Creatinine R atio Reference Ranges: Normal: < 30 ug/mg creatinine Microalbuminuria: 30 - 300 ug/mg creatinineClinical Albuminuria: > 300 ug/mg creatinine Urine (Urine, Random) 09/04/2024 10:06 AM EDT 09/04/2024 11:22 AM EDT us Alex Pickett MD LAB URINE ORDERABLES Final Resul t [facility] [address] [place] [phone] * HPV mRNA E6/E7 w/Reflex to HPV Genotypes 16, 18/45 (05/27/2023 9:30 AM EST) HPV nRNA E6/E7 Not Detected Not Detected [facility] Comment:Methodology: Transcr iption-Mediated AmplificationThis assay detects E6/E7 viral messenger RNA (mRNA) from 14high-risk HPV types (16,18,31,33,35,39,45,51,52,56,58,59,66,68).Cervical sources are required for HPV testing.If a vaginal source from a patient who has had atotal hysterectomy with removal of cervix wassubmitted, please contact the testing laboratoryfor alternative testing options.For additional information, please refer tohttp://education.[employer]/faq/VMB376j8(This link if provided for information/educational purposes only.)THIS TEST WAS PERFORMED AT:[facility] [place] [phone] FOFANA MD HPV mRNA E6/E7 TNP [facility] HPV 16 RNA [facility] HPV 18/45 RNA [facility] 05/27/2023 9:30 AM EST 05/28/2023 12:15 PM EST us Ghada Napoles CNM LAB CYTOLOGY ORDERABLES F inal Result [facility] [address] [place] [phone] * Pap Smear (05/27/2023 9:30 AM EST) Swab Cervix uteri structure / Unknown 05/27/2023 9:30 AM EST 05/28/2023 12:15 PM EST Narrative [facility] - 06/07/2023 11:41 AM EST ----- ------- Name: Awa ChurchillSylvia Age/Sex: 37/F : 1985 Unit#: [id number] Attend Dr: GHADA NAPOLES CNM Re05/27/23 Status: DEP REF Location: [facility] Disch: ----- ------- SPEC : [id number] RECD: 05/28/23-1214 STATUS: SINCERE SAGE NUM: [id number] JEFF: 05/27/23-[address]: GHADA NAPOLES CNM ENTERED: 05/29/23-807 SP TYPE: Pap Smr OTHR DR: ORDERED: Pap Smear Interpretation Satisfactory for evaluation. No endocervical cells seen. Fungal organisms consistent with Chloe species. Negative for intraepithelial lesion or malignancy. HPV mRNA E6/E7: NOT DETECTED This assay detects E6/E7 viral messenger RNA (mRNA) from 14 high-risk HPV types (16, 18, 31, 33, 35, 39, 45, 51, 52, 56, 58, 59, 66, 68) HPV testing performed by [facility], [place], [place]. See reference laboratory portion of the EMR for entire report. Clinical Information LMP: Unknown date Previous PAP test: Unknown date/findings Material Received ThinPrep-Cervical ----- ------- Signed (signature on file) VIOLETTE Contreras (ASCP) 06/07/23 1141 ----- ------- END OF REPORT Ghada Napoles [facility] CYTOLOGY ORDERABLES F inal Result [facility] [address] [place] [phone] * Hepatitis C Antibody with Reflex to HCV, RNA, Quantitative, Real-Time PCR (07/02/2022 1:15 PM EDT) Hepatitis C Antibody NON-REACT NAOMI NON-REACT NAOMI [facility] [place] [facility] Index 0.02 <1.00 [facility] [place] [facility] Comment: HCV antibody was non-reactive. There is no laboratory evidence of HCV infection. In most cases, no further action is required. However, if recent HCV exposure is suspected, a test for HCV RNA (test code 80394) is suggested. For additional information please refer to http://[employer]/faq/TGG90t6 (This link is being provided for informational/ educational purposes only.) Blood Venous blood specimen / Unknown 07/02/2022 1:15 PM EDT 07/02/2022 1:15 PM EDT [facility]LOOD ORDERAB[facility] Final Result [facility] [address], [place] [phone] [facility] [place] [facility] [address] [place] [phone] * HIV-1/2 Antigen and Antibodies, Fourth Generation, with Reflexes (07/02/2022 1:15 PM EDT) [facility] HIV Antigen/Antibody, 4th Generation NON-REAC TIVE NON-REAC TIVE [facility] [place] [facility] Comment: HIV-1 antigen and HIV-1/HIV-2 antibodies were not detected. There is no laboratory evidence of HIV infection. PLEASE NOTE: This information has been disclosed to you from records whose confidentiality may be protected by state law. If your state requires such protection, then the state law prohibits you from making any further disclosure of the information without the specific written consent of the person to whom it pertains, or as otherwise permitted by law. A general authorization for the release of medical or other information is NOT sufficient for this purpose. For additional information please refer to http://[employer]/faq/ECU710 (This link is being provided for informational/ educational purposes only.) The performance of this assay has not been clinically validated in patients less than 2 years old. Blood Venous blood specimen / Unknown 07/02/2022 1:15 PM EDT 07/02/2022 1:15 PM EDT Tahira Encinas [facility] LAB BLOOD ORDERABLES Final Result [facility] [address] [facility], [place] [phone] [facility] [address] [place] [phone] from Last 3 Months or Most Recently Relevant to Health Maintenance Additional Health Concerns Active Problems Noted Date Diagnosed Date Help patients manage their type 2 diabetes 02/17 Patient has chronic kidney disease 02/17/2025 Patient has chronic kidney disease 02/18/2025 Patient has diabetic eye disease 02/19/2025 Patient has chronic kidney disease 02/19/2025 Patient has chronic kidney disease 02/23/2025 [facility] [facility] MED[facility] STAND ADULT Care Teams Sorting Machine Attendant Relationship Specialty Start Date End Date Name, MD Alex [address] [place] [address] PCP - General Internal Medicine 07/16/23 Brenda Gavin Community Health Worker 08/21/23 Arin Contreras RN Health Services Information Specialist 08/21/23 Lakia Herrmann PharmD [address] [place] [address] Pharmacist Internal Medicine 12/13/23 Dolores Barriga Health Services Information SpecialistValet Manager 12/30/24
[2025-02-24 06:02] LABS: HBc Num1 0.04 S/CO (0.00-0.79); HBsAGNum1 0.43 S/CO (0.00-0.99); HIV Num 1 0.06 S/CO (0.00-0.99); Hepatitis B Surface Antigen Negative (Negative); ~HepC Num1 0.08 S/CO (0.00-0.79); ~Hepatitis B Surface Antibody REACTIVE (Nonreactive); ~Hepatitis C Antibody Nonreactive (Nonreactive)
== END 2025-02-23 11:52 | disposition home or self-care (01) ==
LOC: HO.HHCL 11:51
PROVIDERS: PCP Internal Medicine Geriatric Medicine; Visit Provider Emergency Medicine
DX: Z00.00 Encounter for general adult medical examination without abnormal findings (principal); Z11.4 Encounter for screening for human immunodeficiency virus [HIV]; Z11.59 Encounter for screening for other viral diseases; Z11.3 Encounter for screening for infections with a predominantly sexual mode of transmission; E11.65 Type 2 diabetes mellitus with hyperglycemia; R14.0 Abdominal distension (gaseous); D50.9 Iron deficiency anemia, unspecified; L65.9 Nonscarring hair loss, unspecified; K52.1 Toxic gastroenteritis and colitis
CPT/HCPCS: 36415; 80048; 80061; 82306; 82607; 82728; 82746; 83540; 84443; 85025; 86592; 86704; 86706; 86803; 87340; 87389